=== PATIENT | female | born 1950 | race Caucasian/White ===

== ENCOUNTER → 2016-08-03 | Outpatient (CLI) | payer MEDICARE ==
--- NOTE | 2016-08-04 07:55 | US ---
EXAMINATION TYPE: US carotid duplex BILAT DATE OF EXAM: 08/03/2016 COMPARISON: NONE CLINICAL HISTORY: H35.61 Retinal Hemorrhage R Eye. EXAM MEASUREMENTS: RIGHT: Peak Systolic Velocity (PSV) cm/sec ----- Right CCA: 61.6 ----- Right ICA: 66.9 ----- Right ECA: 97.6 ICA/CCA ratio: 1.1 RIGHT: End Diastole cm/sec ----- Right CCA: 18.0 ----- Right ICA: 25.8 ----- Right ECA: 16.1 LEFT: Peak Systolic Velocity (PSV) cm/sec ----- Left CCA: 48.9 ----- Left ICA: 61.6 ----- Left ECA: 60.8 ICA/CCA ratio: 1.3 LEFT: End Diastole cm/sec ----- Left CCA: 16.1 ----- Left ICA: 22.3 ----- Left ECA: 10.1 VERTEBRALS (direction of flow): Right Vertebral: Antegrade Left Vertebral: Antegrade Mild changes bilaterally, no elevated velocities, no significant stenosis. Grayscale images show mild eccentric hyperechoic plaque at left carotid bulb. Velocity measurements a nd ratios in visualized portion of both internal carotid arteries remain within normal limits. Normal cephalad directed flow is seen in both vertebral arteries. IMPRESSION: No hemodynamically significant stenosis is seen in either internal carotid artery.
== END | disposition home or self-care (01) ==
LOC: RADUSWWP 16:13
PROVIDERS: ATTEND Family Medicine
DX: H35.61 Retinal hemorrhage, right eye (principal); E78.2 Mixed hyperlipidemia; I10 Essential (primary) hypertension
CPT/HCPCS: 93880

== ENCOUNTER → 2016-08-11 | Outpatient (CLI) | payer MEDICARE ==
--- NOTE | 2016-08-11 11:12 | MM ---
Reason for exam: additional evaluation requested from prior study. Last mammogram was performed 1 year and 1 month ago. History: Patient is postmenopausal. Benign excisional biopsy of the right breast, 1995. Took estrogen for 3 months. Physical Findings: Nurse did not find any significant physical abnormalities on exam. MG 3D Diag Mammo W/Cad GABBIE Bilateral CC and MLO view(s) were taken. Prior study comparison: July 14, 2015, bilateral MG screening mammo w CAD. July 12, 2014, bilateral MG screening mammo w CAD. The breast tissue is heterogeneously dense. This may lower the sensitivity of mammography. No significant new findings when compared with previous films. These results were verbally communicated with the patient and result sheet given to the patient on 08/11/16. ASSESSMENT: Benign, BI-RAD 2 RECOMMENDATION: Routine screening mammogram of both breasts in 1 year. Manage patient on a clinical basis.
== END | disposition home or self-care (01) ==
LOC: RADMAMWWP 10:01
PROVIDERS: ATTEND Family Medicine
DX: N64.4 Mastodynia (principal)
CPT/HCPCS: G0204; G0279

== ENCOUNTER 2016-08-27 08:56 | Day surgery (SDC) | payer MEDICARE ==
[2016-08-25 09:25] VITALS: BMI 32.8
[~2016-08-27 08:56] MED LIST: LACTATED RINGERS 1,000 ML IV SCH; LIDOCAINE 1% 20 ML VIAL (10MG/ML) FOR IV START INTRADERMA PRN
[2016-08-27 10:40] VITALS: TEMP 97.2
[2016-08-27] MEDS ORDERED: PROPOFOL 10 MG/ML 20 ML VIAL IV ONE (11:29)
[2016-08-27] MEDS ORDERED: LIDOCAINE 1% INJ 10MG/ML (20 ML MDV) ONE (11:29)
--- NOTE | 2016-08-27 11:47 | P.PCN ---
Date of Procedure: 08/27/16 Preoperative Diagnosis: Postoperative Diagnosis: Procedure(s) Performed: BRIEF HISTORY: Patient is a 66-year-old pleasant female, scheduled for an elective colonoscopy as a part of screening for colorectal neoplasia. PROCEDURE PERFORMED: Colonoscopy. PREOPERATIVE DIAGNOSIS: Screening for colon cancer. IV sedation per Anesthesia. PROCEDURE: After informed consent was obtained, the patient, was brought into the endoscopy unit. IV sedation was administered by Anesthesia under continuous monitoring. Digital rectal examination was normal. Initially the Olympus CF- 160 flexible video colonoscope was then inserted in the rectum, gradually advanced into the cecum without any difficulty. Careful examination was performed as the scope was gradually being withdrawn. Ileocecal valve and the appendiceal orifice were visualized and appeared normal. Prep was excellent. Mucosa of the cecum, ascending colon, transverse colon, descending colon, sigmoid colon, and rectum appeared normal. Retroflexion was performed in the rectum and no lesions were seen. The patient tolerated the procedure well. IMPRESSION: Normal-appearing colon from rectum to cecum with no evidence of colorectal neoplasia. RECOMMENDATIONS: Findings of this examination were discussed with the patient as well as her family. She was advised to have a repeat screening colonoscopy in 10 years. Implants: Indications for Procedure: Operative Findings: Description of Procedure:
[2016-08-27 12:18] VITALS: BP 145/82; PULSE 64; RESP 16
== END 2016-08-27 12:22 | disposition home or self-care (01) ==
LOC: ORWHC2ENDO 08:56
PROVIDERS: ATTEND Internal Medicine Gastroenterology
DX: Z12.11 Encounter for screening for malignant neoplasm of colon (principal); I10 Essential (primary) hypertension; E78.5 Hyperlipidemia, unspecified; I34.0 Nonrheumatic mitral (valve) insufficiency; E07.9 Disorder of thyroid, unspecified; G47.33 Obstructive sleep apnea (adult) (pediatric); M19.90 Unspecified osteoarthritis, unspecified site; K21.9 Gastro-esophageal reflux disease without esophagitis; Z79.899 Other long term (current) drug therapy; Z79.1 Long term (current) use of non-steroidal anti-inflammatories (NSAID); Z88.5 Allergy status to narcotic agent; Z88.0 Allergy status to penicillin; Z88.8 Allergy status to other drugs, medicaments and biological substances
CPT/HCPCS: J2001; J2704; G0121; 45378

== ENCOUNTER → 2016-11-08 | Outpatient (CLI) | payer MEDICARE ==
[2016-11-08 09:51] LABS: Non-African American GFR(MDRD) 51 (>60 ml/min/1.73 sqM)
== END | disposition home or self-care (01) ==
LOC: LABWHC1 08:39
PROVIDERS: ATTEND Psychiatry & Neurology Neurology
DX: D31.91 Benign neoplasm of unspecified part of right eye (principal)
CPT/HCPCS: 36415; 82565

== ENCOUNTER 2017-02-15 14:36 | Emergency (ER) | payer MEDICARE ==
[2017-02-15] MEDS ORDERED: ACETAMINOPHEN TAB 500 MG TAB PO STA (15:47)
--- NOTE | 2017-02-15 16:01 | ED ---
General Adult HPI - General Chief complaint: Fever Stated complaint: vomiting/cough/sore all over Time Seen by Provider: 02/15/17 15:25 Source: patient, RN notes reviewed Mode of arrival: wheelchair Limitations: no limitations - History of Present Illness Initial comments: 66-year-old female presents to the emergency department with a chief complaint of fever and cough cold runny nose. She states she's been sick since Tuesday night. She states she's had fevers she's had a cough with some sputum production she has had some nausea. She states she just feels very sore and very tired. She states that she was concerned because he just does not seem to be getting better and it has been About 3-4 days. She denies any other symptoms at this. She denies any diarrhea. She states she was concerned due to her continued symptoms so she thought that she should be seen. Patient denies any recent , shortness of breath, chest pain, back pain, abdominal pain, nausea vomiting, numbness or tingling, dysuria or hematuria, constipation or diarrhea, headaches or visual changes, or any other current symptoms. - Related Data Home Medications Medication Instructions Recorded Confirmed Allopurinol 300 mg PO DAILY 09/19/13 10/07/16 Levothyroxine Sodium [Synthroid] 50 mcg PO MOTUWETHFR 09/19/13 10/07/16 Simvastatin 40 mg PO HS 09/19/13 10/07/16 Hydrochlorothiazide [Hydrodiuril] 25 mg PO DAILY 08/20/14 10/07/16 Levothyroxine Sodium [Synthroid] 100 mcg PO SUSA 08/26/15 10/07/16 Aspirin [Children's Aspirin] 81 mg PO DAILY 02/15/17 02/15/17 Losartan Potassium 50 mg PO DAILY 02/15/17 02/15/17 Allergies Allergy/AdvReac Type Severity Reaction Status Date / Time amitriptyline HCl Allergy Rapid Verified 02/15/17 16:05 [From Elavil] Heart Rate codeine Allergy Vomiting Verified 02/15/17 16:05 codeine phosphate Allergy Vomiting Verified 02/15/17 16:05 [From Tylenol-Codeine #3] hydrocodone Allergy Rash/Hives Verified 02/15/17 16:05 hydrocodone bitartrate Allergy Rash/Hives Verified 02/15/17 16:05 [From Lortab] indomethacin [From Indocin] Allergy Vomiting Verified 02/15/17 16:05 indomethacin sodium Allergy Vomiting Verified 02/15/17 16:05 [From Indocin] nifedipine [From Procardia] Allergy Did not Verified 02/15/17 16:05 maintain blood pressure Penicillins Allergy Rash/Hives Verified 02/15/17 16:05 amlodipine besylate AdvReac lower leg Verified 02/15/17 16:05 [From Norvasc] edema, did not maintain blood pressure enalapril maleate AdvReac Cough Verified 02/15/17 15:02 [From Vasotec] enalaprilat dihydrate AdvReac Cough Verified 02/15/17 15:02 [From Vasotec] propoxyphene HCl AdvReac Vomiting Verified 02/15/17 16:05 [From Darvon] anesthetics AdvReac Nausea & Uncoded 02/15/17 16:05 Vomiting Review of Systems ROS Statement: Those systems with pertinent positive or pertinent negative responses have been documented in the HPI. ROS Other: All systems not noted in ROS Statement are negative. Past Medical History Past Medical History: Chest Pain / Angina, Diabetes Mellitus, GERD/Reflux, Hyperlipidemia, Hypertension, Musculoskeletal Disorder, Osteoarthritis (OA), Pneumonia, Sleep Apnea/CPAP/BIPAP, Syncope, Thyroid Disorder Additional Past Medical History / Comment(s): Heart Murmur. SL CATARACTS. GOUT. SYNCOPAL EPISODE W/ SEIZURE X1. NO TX FOR SLEEP APNEA. PAST SHINGLES. RT EAR SL LOSS W/TINNITUS R/T VIRUS. HERNIATED DISC BACK, SCIATICA. N/T RT LEG /FOOT; USES QUAD CANE PRN. HAD STRESS TEST, MEDICAL CLEARANCE 08/26/15. History of Any Multi-Drug Resistant Organisms: None Reported Past Surgical History: Adenoidectomy, Back Surgery, Bladder Surgery, Cholecystectomy, Heart Catheterization, Orthopedic Surgery, Tonsillectomy, Tubal Ligation Additional Past Surgical History / Comment(s): 09/02/15 lumbar laminectomy discectomy L4-L5. Other surgical hx: Bladder Suspension, GABBIE HIP RE- ALIGNMENTS. ORIF LT WRIST. RT CTR. RT ANKLE BENIGN TUMOR EXC. Lipoma EXC Rt wrist, EXC GANGLION CYSTS X3 RT WRIST. RT BREAST CYST EXC. Dental Implants x6. LT KNEE SCOPE. EPIDURAL INJ BACK X4, LAST 07/23/15, Past Anesthesia/Blood Transfusion Reactions: Family History of Problems w/ Anesthesia, Motion Sickness, Postoperative Nausea & Vomiting (PONV) Additional Past Anesthesia/Blood Transfusion Reaction / Comment(s): SEVERE PONV. MOTHER, SISTERS HAVE PONV. Past Psychological History: No Psychological Hx Reported Smoking Status: Never smoker Past Alcohol Use History: None Reported Past Drug Use History: None Reported - Past Family History Mother Family Medical History: Diabetes Mellitus Father Family Medical History: Diabetes Mellitus Additional Family Medical History / Comment(s): HEART PROBLEMS General Exam Limitations: no limitations General appearance: alert, in no apparent distress Eye exam: Present: normal appearance, PERRL, EOMI. Absent: scleral icterus, conjunctival injection, periorbital swelling ENT exam: Present: normal exam, mucous membranes moist Neck exam: Present: normal inspection. Absent: tenderness, meningismus, lymphadenopathy Respiratory exam: Present: normal lung sounds bilaterally. Absent: respiratory distress, wheezes, rales, rhonchi, stridor Cardiovascular Exam: Present: regular rate, normal rhythm, normal heart sounds. Absent: systolic murmur, diastolic murmur, rubs, gallop, clicks Neurological exam: Present: alert, oriented X3 Psychiatric exam: Present: normal affect, normal mood Skin exam: Present: warm, dry, intact, normal color. Absent: rash Course Vital Signs 02/15/17 15:00 Temperature 100.0 F H Pulse Rate 104 H Respiratory 20 Rate Blood Pressure 110/67 O2 Sat by Pulse 98 Oximetry Medical Decision Making - Medical Decision Making 66-year-old female presents emergency department with a chief complaint of of cough cold fever symptoms. This and patient is positive for influenza A. Chest x-rays been reviewed. This time she is out of the window for treatment. We discussed continuing Tylenol every 4 hours to help her with her symptoms. We discussed increasing fluids and symptom control. Patient stated that she understood and she is agreement this plan. All questions have been answered. He'll be discharged. - Lab Data Lab Results 02/15/17 Range/Units 15:35 Influenza Type A RNA Detected H (Not Detectd) Influenza Type B (PCR) Not Detected (Not Detectd) - Radiology Data Radiology results: report reviewed, image reviewed Disposition Clinical Impression: Influenza A Disposition: HOME SELF-CARE Condition: Stable Instructions: Fever in Adults (ED), Influenza (ED) Additional Instructions: Please use medication as discussed. Please follow up with family doctor if symptoms have not improved over the next two days. Please return to the emergency room if your symptoms increase or worsen or for any other concerns. Referrals: Shira Coe III, MD [Primary Care Provider] - 1-2 days Time of Disposition: 16:12
--- NOTE | 2017-02-15 16:07 | XR ---
EXAMINATION TYPE: XR chest 2V DATE OF EXAM: 02/15/2017 COMPARISON: Prior chest x-ray 08/22/2015 HISTORY: Cough TECHNIQUE: Frontal and lateral views of the chest are obtained. FINDINGS: There is no focal air space opacity, pleural effusion, or pneumothorax seen. The cardiac silhouette size is within normal limits. There is a slight spinal curvature. There is eventration of the right hemidiaphragm. Bronchial wall thickening is noted. The osseous structures are intact. IMPRESSION: Correlate for bronchitis, reactive airways disease.
[2017-02-15 16:14] VITALS: BP 124/77; PULSE 90; RESP 18; TEMP 100.1
== END 2017-02-15 16:32 | disposition home or self-care (01) ==
LOC: EC 14:36
DX: J09.X2 Influenza due to identified novel influenza A virus with other respiratory manifestations (principal); E78.5 Hyperlipidemia, unspecified; I10 Essential (primary) hypertension; M10.9 Gout, unspecified; E07.9 Disorder of thyroid, unspecified; M19.90 Unspecified osteoarthritis, unspecified site; Z79.82 Long term (current) use of aspirin; Z79.899 Other long term (current) drug therapy; Z88.0 Allergy status to penicillin; Z88.5 Allergy status to narcotic agent; Z88.6 Allergy status to analgesic agent; Z88.7 Allergy status to serum and vaccine; Z88.8 Allergy status to other drugs, medicaments and biological substances
CPT/HCPCS: 71020; 87502; 99283

== ENCOUNTER 2017-02-17 09:18 | Emergency (ER) | payer MEDICARE ==
[2017-02-17] MEDS ORDERED: KETOROLAC 30 MG/ML 1 ML VIAL IVP STA (10:29)
[2017-02-17] MEDS ORDERED: IPRATROPIUM-ALBUTEROL 3 ML NEB INHALATION STA (10:29)
[2017-02-17] MEDS ORDERED: SODIUM CHLORIDE 0.9% 1,000 ML IV ONE (10:29)
[2017-02-17 11:04] VITALS: RESP 16; TEMP 98.2
--- NOTE | 2017-02-17 11:18 | ED ---
General Adult HPI - General Chief complaint: Recheck/Abnormal Lab/Rx Stated complaint: Hx FLU, STILL SICK Time Seen by Provider: 02/17/17 10:08 Source: patient, family Mode of arrival: wheelchair Limitations: no limitations - History of Present Illness Initial comments: 66-year-old female presented for evaluation of continued URI symptoms. She states that she started having subjective fevers and chills cough myalgias or arthralgias on 02/12/2017 and was seen at this facility on when she was diagnosed with influenza A. She was outside of the treatment timeline for Tamiflu and advised follow-up with primary care physician. She states during this time she has had worsening cough that is productive of discolored sputum, nausea, bilateral ear discomfort, and the myalgias/arthralgias have continued to worsen. She called her primary care's edition's office today however there was no availability causing her to come to the ED. - Related Data Home Medications Medication Instructions Recorded Confirmed Allopurinol 300 mg PO DAILY 09/19/13 02/17/17 Levothyroxine Sodium [Synthroid] 50 mcg PO MOTUWETHFR 09/19/13 02/17/17 Simvastatin 40 mg PO HS 09/19/13 02/17/17 Hydrochlorothiazide [Hydrodiuril] 25 mg PO DAILY 08/20/14 02/17/17 Levothyroxine Sodium [Synthroid] 100 mcg PO SUSA 08/26/15 02/17/17 Aspirin [Children's Aspirin] 81 mg PO DAILY 02/15/17 02/17/17 Losartan Potassium 50 mg PO DAILY 02/15/17 02/17/17 Previous Rx's Medication Instructions Recorded Azithromycin [Zithromax Z-pack] 0 mg PO DIRECTED #6 tab 02/17/17 Benzonatate [Tessalon Perles] 100 mg PO TID PRN #20 capsule 02/17/17 Allergies Allergy/AdvReac Type Severity Reaction Status Date / Time amitriptyline HCl Allergy Rapid Verified 02/17/17 10:00 [From Elavil] Heart Rate codeine Allergy Vomiting Verified 02/17/17 10:00 codeine phosphate Allergy Vomiting Verified 02/17/17 10:00 [From Tylenol-Codeine #3] hydrocodone Allergy Rash/Hives Verified 02/17/17 10:00 hydrocodone bitartrate Allergy Rash/Hives Verified 02/17/17 10:00 [From Lortab] indomethacin [From Indocin] Allergy Vomiting Verified 02/17/17 10:00 indomethacin sodium Allergy Vomiting Verified 02/17/17 10:00 [From Indocin] nifedipine [From Procardia] Allergy Did not Verified 02/17/17 10:00 maintain blood pressure Penicillins Allergy Rash/Hives Verified 02/17/17 10:00 amlodipine besylate AdvReac lower leg Verified 02/17/17 10:00 [From Norvasc] edema, did not maintain blood pressure enalapril maleate AdvReac Cough Verified 02/17/17 10:00 [From Vasotec] enalaprilat dihydrate AdvReac Cough Verified 02/17/17 10:00 [From Vasotec] propoxyphene HCl AdvReac Vomiting Verified 02/17/17 10:00 [From Darvon] anesthetics AdvReac Nausea & Uncoded 02/17/17 09:35 Vomiting Review of Systems ROS Statement: Those systems with pertinent positive or pertinent negative responses have been documented in the HPI. ROS Other: All systems not noted in ROS Statement are negative. Constitutional: Reports: fever, chills Eyes: Denies: eye pain, eye discharge, vision change ENT: Reports: ear pain, congestion. Denies: throat pain, dental pain, epistaxis Respiratory: Reports: cough (Productive of green sputum). Denies: dyspnea, wheezes Cardiovascular: Denies: chest pain, palpitations, dyspnea on exertion, syncope Endocrine: Denies: fatigue, polydipsia, polyuria Gastrointestinal: Reports: nausea. Denies: abdominal pain, vomiting, diarrhea, constipation, hematemesis Genitourinary: Denies: urgency, dysuria Musculoskeletal: Reports: arthralgia, myalgia. Denies: back pain Skin: Denies: rash, lesions Neurological: Reports: headache. Denies: weakness Psychiatric: Denies: anxiety, depression Hematological/Lymphatic: Denies: easy bleeding, easy bruising Past Medical History Past Medical History: Chest Pain / Angina, Diabetes Mellitus, GERD/Reflux, Hyperlipidemia, Hypertension, Musculoskeletal Disorder, Osteoarthritis (OA), Pneumonia, Sleep Apnea/CPAP/BIPAP, Syncope, Thyroid Disorder Additional Past Medical History / Comment(s): Heart Murmur. SL CATARACTS. GOUT. SYNCOPAL EPISODE W/ SEIZURE X1. NO TX FOR SLEEP APNEA. PAST SHINGLES. RT EAR SL LOSS W/TINNITUS R/T VIRUS. HERNIATED DISC BACK, SCIATICA. N/T RT LEG /FOOT; USES QUAD CANE PRN. HAD STRESS TEST, MEDICAL CLEARANCE 08/26/15. History of Any Multi-Drug Resistant Organisms: None Reported Past Surgical History: Adenoidectomy, Back Surgery, Bladder Surgery, Cholecystectomy, Heart Catheterization, Orthopedic Surgery, Tonsillectomy, Tubal Ligation Additional Past Surgical History / Comment(s): 09/02/15 lumbar laminectomy discectomy L4-L5. Other surgical hx: Bladder Suspension, GABBIE HIP RE- ALIGNMENTS. ORIF LT WRIST. RT CTR. RT ANKLE BENIGN TUMOR EXC. Lipoma EXC Rt wrist, EXC GANGLION CYSTS X3 RT WRIST. RT BREAST CYST EXC. Dental Implants x6. LT KNEE SCOPE. EPIDURAL INJ BACK X4, LAST 07/23/15, Past Anesthesia/Blood Transfusion Reactions: Family History of Problems w/ Anesthesia, Motion Sickness, Postoperative Nausea & Vomiting (PONV) Additional Past Anesthesia/Blood Transfusion Reaction / Comment(s): SEVERE PONV. MOTHER, SISTERS HAVE PONV. Past Psychological History: No Psychological Hx Reported Smoking Status: Never smoker Past Alcohol Use History: None Reported Past Drug Use History: None Reported - Past Family History Mother Family Medical History: Diabetes Mellitus Father Family Medical History: Diabetes Mellitus Additional Family Medical History / Comment(s): HEART PROBLEMS General Exam Limitations: no limitations General appearance: alert, in distress (Moderate) Head exam: Present: atraumatic, normocephalic, normal inspection Eye exam: Present: normal appearance, PERRL, EOMI. Absent: scleral icterus, conjunctival injection, periorbital swelling ENT exam: Present: normal exam, mucous membranes moist Neck exam: Present: normal inspection. Absent: tenderness, meningismus, lymphadenopathy Respiratory exam: Present: normal lung sounds bilaterally. Absent: respiratory distress, wheezes, rales, rhonchi, stridor Cardiovascular Exam: Present: regular rate, normal rhythm, normal heart sounds. Absent: systolic murmur, diastolic murmur, rubs, gallop, clicks GI/Abdominal exam: Present: soft, normal bowel sounds. Absent: distended, tenderness, guarding, rebound, rigid Rectal exam: Present: deferred Extremities exam: Present: normal inspection, full ROM, normal capillary refill. Absent: tenderness, pedal edema, joint swelling, calf tenderness Back exam: Present: normal inspection, full ROM Neurological exam: Present: alert, oriented X3, CN II-XII intact Psychiatric exam: Present: normal affect, normal mood Skin exam: Present: warm, dry, intact, normal color. Absent: rash Course Vital Signs 02/17/17 02/17/17 02/17/17 09:31 10:58 11:02 Temperature 98.5 F 98.2 F Pulse Rate 91 80 82 Respiratory 18 16 Rate Blood Pressure 94/58 110/67 O2 Sat by Pulse 95 97 Oximetry 02/17/17 02/17/17 11:10 12:54 Temperature 98.2 F Pulse Rate 82 72 Respiratory 16 Rate Blood Pressure 112/68 O2 Sat by Pulse 98 Oximetry Medical Decision Making - Medical Decision Making 66-year-old female presenting for evaluation of continued symptoms after being diagnosed with influenza A 2 days ago. On physical exam she appears to be in mild to moderate distress laying on the bed. She does have a spit bucket with her that does have discolored sputum. Remainder of her physical exam is benign. Concern for post-influenza pneumonia and will obtain chest x-ray and labs. She denies any abdominal pain however continues to have nausea despite coughing or not and will obtain abdominal labs. Also provide Afrin, IV fluids, Toradol, and a breathing treatment. Labs revealed a mild transaminitis and chest x-ray revealed no acute process. Patient was reevaluated and had improvement in all symptoms. She was informed of all results and through shared decision making it was determined that should be discharged with instructions to follow-up with her primary care physician but return to this facility if her symptoms should worsen or persist. The patient acknowledged an understanding of all information provided and agreed with this plan of care. - Lab Data Result diagrams: 02/17/17 10:52 02/17/17 10:52 Lab Results 02/17/17 02/17/17 Range/Units 10:52 10:52 WBC 7.4 (3.8-10.6) k/uL RBC 4.67 (3.80-5.40) m/uL Hgb 13.6 (11.4-16.0) gm/dL Hct 39.7 (34.0-46.0) % MCV 85.0 (80.0-100.0) fL MCH 29.1 (25.0-35.0) pg MCHC 34.2 (31.0-37.0) g/dL RDW 13.5 (11.5-15.5) % Plt Count 273 (150-450) k/uL Neutrophils % 70 % Lymphocytes % 16 % Monocytes % 11 % Eosinophils % 0 % Basophils % 1 % Neutrophils # 5.2 (1.3-7.7) k/uL Lymphocytes # 1.2 (1.0-4.8) k/uL Monocytes # 0.8 (0-1.0) k/uL Eosinophils # 0.0 (0-0.7) k/uL Basophils # 0.0 (0-0.2) k/uL Sodium 133 L (137-145) mmol/L Potassium 2.9 L* (3.5-5.1) mmol/L Chloride 90 L (98-107) mmol/L Carbon Dioxide 31 H (22-30) mmol/L Anion Gap 12 mmol/L BUN 16 (7-17) mg/dL Creatinine 0.99 (0.52-1.04) mg/dL Est GFR (MDRD) Af Amer >60 (>60 ml/min/1.73 sqM) Est GFR (MDRD) Non-Af 56 (>60 ml/min/1.73 sqM) Glucose 107 H (74-99) mg/dL Calcium 8.5 (8.4-10.2) mg/dL Total Bilirubin 0.7 (0.2-1.3) mg/dL AST 62 H (14-36) U/L ALT 84 H (9-52) U/L Alkaline Phosphatase 177 H (38-126) U/L Total Protein 6.3 (6.3-8.2) g/dL Albumin 3.5 (3.5-5.0) g/dL Lipase 28 (23-300) U/L Disposition Clinical Impression: Productive cough, URI (upper respiratory infection), Hypokalemia Disposition: HOME SELF-CARE Condition: Stable Instructions: Influenza (ED), Upper Respiratory Infection (ED), Acute Bronchitis (ED) Additional Instructions: Please use medication as discussed. Please follow up with family doctor if symptoms have not improved over the next two days. Please return to the emergency room if your symptoms increase or worsen or for any other concerns. Prescriptions: Azithromycin [Zithromax Z-pack] 0 mg PO DIRECTED #6 tab Benzonatate [Tessalon Perles] 100 mg PO TID PRN #20 capsule PRN Reason: cough Referrals: Shira Coe III, MD [Primary Care Provider] - 1-2 days Time of Disposition: 12:33
--- NOTE | 2017-02-17 11:37 | XR ---
EXAMINATION TYPE: XR chest 2V DATE OF EXAM: 02/17/2017 COMPARISON: Prior chest x-ray 02/15/2017 HISTORY: Cough TECHNIQUE: Frontal and lateral views of the chest are obtained. FINDINGS: There is no focal air space opacity, pleural effusion, or pneumothorax seen. The cardiac silhouette size is within normal limits. Bronchial wall thickening present. The osseous structures ar e intact. IMPRESSION: Correlate for bronchitis, reactive airways disease.
[2017-02-17 11:50] LABS: Anion Gap 12 mmol/L; Calcium 8.5 mg/dL (8.4-10.2); Carbon Dioxide 31 mmol/L (22-30); Chloride 90 mmol/L (98-107); Glucose 107 mg/dL (74-99); Non-African American GFR(MDRD) 56 (>60 ml/min/1.73 sqM); Sodium 133 mmol/L (137-145); Total Bilirubin 0.7 mg/dL (0.2-1.3); Total Protein 6.3 g/dL (6.3-8.2)
[2017-02-17 11:59] LABS: Potassium 2.9 mmol/L (3.5-5.1)
[2017-02-17 12:00] LABS: AST 62 U/L (14-36); Alkaline Phosphatase 177 U/L (38-126); Blood Urea Nitrogen 16 mg/dL (7-17)
[2017-02-17 12:01] LABS: ALT 84 U/L (9-52)
[2017-02-17 12:14] LABS: Basophils % (A) 1 %; CH 29.9; CHCM 35.3; Eosinophils % (A) 0 %; HCT 39.7 % (34.0-46.0); HDW 2.94; HGB 13.6 gm/dL (11.4-16.0); Luc # (Auto) 0.17; Luc % (Auto) 2; Lymphocytes # (A) 1.2 k/uL (1.0-4.8); Lymphocytes % (A) 16 %; MCH 29.1 pg (25.0-35.0); MCHC 34.2 g/dL (31.0-37.0); Mean Platelet Volume 7.1; Monocytes # (A) 0.8 k/uL (0-1.0); Monocytes % (A) 11 %; Neutrophils # (A) 5.2 k/uL (1.3-7.7); Neutrophils % (A) 70 %; RBC 4.67 m/uL (3.80-5.40); RDW 13.5 % (11.5-15.5); WBC 7.4 k/uL (3.8-10.6)
[2017-02-17] MEDS ORDERED: POTASSIUM CHLORIDE ER 20 MEQ TAB.ER PO STA (12:22)
[2017-02-17 12:56] VITALS: BP 112/68; PULSE 72
== END 2017-02-17 12:45 | disposition home or self-care (01) ==
LOC: EC 09:18
DX: J06.9 Acute upper respiratory infection, unspecified (principal); E87.6 Hypokalemia; E78.5 Hyperlipidemia, unspecified; I10 Essential (primary) hypertension; E07.9 Disorder of thyroid, unspecified; G47.30 Sleep apnea, unspecified; Z99.89 Dependence on other enabling machines and devices; M19.90 Unspecified osteoarthritis, unspecified site; Z79.82 Long term (current) use of aspirin; Z79.899 Other long term (current) drug therapy; Z88.8 Allergy status to other drugs, medicaments and biological substances; Z88.5 Allergy status to narcotic agent; Z88.6 Allergy status to analgesic agent; Z88.0 Allergy status to penicillin; Z88.4 Allergy status to anesthetic agent
CPT/HCPCS: 36415; 94640; 80053; 83690; 85025; 71020; 99284; 96374; 96361; J1885

== ENCOUNTER → 2017-08-17 | Outpatient (CLI) | payer MEDICARE ==
--- NOTE | 2017-08-18 10:47 | MM ---
Reason for exam: screening (asymptomatic). Last mammogram was performed 1 year ago. History: Patient is postmenopausal. Benign excisional biopsy of the right breast, 1995. Took estrogen for 3 months. Physical Findings: A clinical breast exam by your physician is recommended on an annual basis and results should be correlated with mammographic findings. MG 3D Screening Mammo W/Cad Bilateral CC and MLO view(s) were taken. Prior study comparison: August 11, 2016, bilateral MG 3d diag mammo w/cad GABBIE. July 14, 2015, bilateral MG screening mammo w CAD. The breast tissue is heterogeneously dense. This may lower the sensitivity of mammography. There is no discrete abnormality. No significant changes when compared with prior studies. ASSESSMENT: Negative, BI-RAD 1 RECOMMENDATION: Routine screening mammogram of both breasts in 1 year.
== END | disposition home or self-care (01) ==
LOC: RADMAMWWP 11:43
PROVIDERS: ATTEND Family Medicine
DX: Z12.31 Encounter for screening mammogram for malignant neoplasm of breast (principal)
CPT/HCPCS: 77063; 77067

== ENCOUNTER 2018-06-02 14:13 | Emergency (ER) | payer MEDICARE ==
[2018-06-02 14:17] VITALS: TEMP 97.8
[2018-06-02] MEDS ORDERED: SODIUM CHLORIDE 0.9% 1,000 ML IV STA ×2 (14:29→15:25)
--- NOTE | 2018-06-02 14:32 | ED ---
Arrhythmia/Palpitations HPI - General Chief Complaint: Arrhythmia/Palpitations Stated Complaint: High Heart Rate, Dizzy Time Seen by Provider: 06/02/18 14:21 Source: patient, RN notes reviewed Mode of arrival: ambulatory Limitations: no limitations - History of Present Illness Initial Comments: This is a 68-year-old female who presents with complaints of generalized leg weakness and sudden dizzy spell. She states she was feeling her usual self when she suddenly got profound weakness in both legs headache dizziness and heart rate initially of 120 later was up to 137 fill it was racing shows a rate about 5 minute episode of a left temporal headache sharp in nature that did resolve she states that normally her heart rate is between 55 and 65 and when she wakes up in the morning between 49 and 52. Currently she has no head neck or back pain. No chest pain no abdominal pain no focal weakness. MD Complaint: "heart racing" - Related Data Home Medications Medication Instructions Recorded Confirmed Allopurinol 300 mg PO DAILY 09/19/13 06/02/18 Levothyroxine Sodium [Synthroid] 50 mcg PO DAILY 09/19/13 06/02/18 Hydrochlorothiazide [Hydrodiuril] 25 mg PO DAILY 08/20/14 06/02/18 Aspirin [Children's Aspirin] 81 mg PO DAILY 02/15/17 06/02/18 Losartan Potassium 50 mg PO DAILY 02/15/17 06/02/18 Atorvastatin Calcium [Lipitor] 10 mg PO HS 06/02/18 06/02/18 Previous Rx's Medication Instructions Recorded Magnesium 200 mg PO DAILY #14 tablet 06/02/18 Potassium Chloride ER [K-Dur 20] 20 meq PO DAILY #14 tab 06/02/18 Allergies Allergy/AdvReac Type Severity Reaction Status Date / Time amitriptyline HCl Allergy Rapid Verified 06/02/18 14:34 [From Elavil] Heart Rate codeine Allergy Vomiting Verified 06/02/18 14:34 codeine phosphate Allergy Vomiting Verified 06/02/18 14:34 [From Tylenol-Codeine #3] hydrocodone Allergy Rash/Hives Verified 06/02/18 14:34 hydrocodone bitartrate Allergy Rash/Hives Verified 06/02/18 14:34 [From Lortab] indomethacin [From Indocin] Allergy Vomiting Verified 06/02/18 14:34 indomethacin sodium Allergy Vomiting Verified 06/02/18 14:34 [From Indocin] nifedipine [From Procardia] Allergy Did not Verified 06/02/18 14:34 maintain blood pressure Penicillins Allergy Rash/Hives Verified 06/02/18 14:34 amlodipine besylate AdvReac lower leg Verified 06/02/18 14:34 [From Norvasc] edema, did not maintain blood pressure enalapril maleate AdvReac Cough Verified 06/02/18 14:34 [From Vasotec] enalaprilat dihydrate AdvReac Cough Verified 06/02/18 14:34 [From Vasotec] propoxyphene HCl AdvReac Vomiting Verified 06/02/18 14:34 [From Darvon] anesthetics AdvReac Nausea & Uncoded 06/02/18 14:17 Vomiting Review of Systems ROS Statement: Those systems with pertinent positive or pertinent negative responses have been documented in the HPI. ROS Other: All systems not noted in ROS Statement are negative. Past Medical History Past Medical History: Chest Pain / Angina, Diabetes Mellitus, GERD/Reflux, Hyperlipidemia, Hypertension, Musculoskeletal Disorder, Osteoarthritis (OA), Pneumonia, Sleep Apnea/CPAP/BIPAP, Syncope, Thyroid Disorder Additional Past Medical History / Comment(s): Heart Murmur. SL CATARACTS. GOUT. SYNCOPAL EPISODE W/ SEIZURE X1. NO TX FOR SLEEP APNEA. PAST SHINGLES. RT EAR SL LOSS W/TINNITUS R/T VIRUS. HERNIATED DISC BACK, SCIATICA. N/T RT LEG/FOOT; USES QUAD CANE PRN. HAD STRESS TEST, MEDICAL CLEARANCE 08/26/15. History of Any Multi-Drug Resistant Organisms: None Reported Past Surgical History: Adenoidectomy, Back Surgery, Bladder Surgery, Cholecystectomy, Heart Catheterization, Orthopedic Surgery, Tonsillectomy, Tubal Ligation Additional Past Surgical History / Comment(s): 09/02/15 lumbar laminectomy discec arnie L4-L5. Other surgical hx: Bladder Suspension, GABBIE HIP RE-ALIGNMENTS. ORIF LT WRIST. RT CTR. RT ANKLE BENIGN TUMOR EXC. Lipoma EXC Rt wrist, EXC GANGLION CYSTS X3 RT WRIST. RT BREAST CYST EXC. Dental Implants x6. LT KNEE SCOPE. EPIDURAL INJ BACK X4, LAST 07/23/15, Past Anesthesia/Blood Transfusion Reactions: Family History of Problems w/ Anesthesia, Motion Sickness, Postoperative Nausea & Vomiting (PONV) Additional Past Anesthesia/Blood Transfusion Reaction / Comment(s): SEVERE PONV. MOTHER, SISTERS HAVE PONV. Past Psychological History: No Psychological Hx Reported Smoking Status: Never smoker Past Alcohol Use History: None Reported Past Drug Use History: None Reported - Past Family History Mother Family Medical History: Diabetes Mellitus Father Family Medical History: Diabetes Mellitus Additional Family Medical History / Comment(s): HEART PROBLEMS General Exam - General Exam Comments Initial Comments: This is a well-developed well-nourished awake alert oriented 3 female Limitations: no limitations General appearance: alert, in no apparent distress Head exam: Present: atraumatic, normocephalic, normal inspection Eye exam: Present: normal appearance, PERRL, EOMI. Absent: scleral icterus, conjunctival injection, periorbital swelling ENT exam: Present: normal exam, mucous membranes moist Neck exam: Present: normal inspection, full ROM, other (No stridor JVD or bruits). Absent: tenderness, meningismus, lymphadenopathy Respiratory exam: Present: normal lung sounds bilaterally. Absent: respiratory distress, wheezes, rales, rhonchi, stridor Cardiovascular Exam: Present: normal rhythm, tachycardia, normal heart sounds. Absent: systolic murmur, diastolic murmur, rubs, gallop, clicks GI/Abdominal exam: Present: soft, normal bowel sounds. Absent: distended, tenderness, guarding, rebound, rigid, bruit, pulsatile mass, hernia Extremities exam: Present: normal inspection, full ROM, normal capillary refill. Absent: tenderness, pedal edema, joint swelling, calf tenderness Back exam: Present: normal inspection Neurological exam: Present: alert, oriented X3, CN II-XII intact Psychiatric exam: Present: normal affect, normal mood Skin exam: Present: warm, dry, intact, normal color. Absent: rash Course Vital Signs 06/02/18 06/02/18 06/02/18 14:14 15:19 15:51 Temperature 97.8 F Pulse Rate 101 H 85 Pulse Rate [ 102 H Sitting Slurry Tank Tender] Pulse Rate [ 140 H Standing Slurry Tank Tender ] Pulse Rate [ 98 Supine Slurry Tank Tender] Respiratory 20 18 Rate Blood Pressure 123/75 127/80 Blood Pressure 137/94 [Right Arm Sitting] Blood Pressure 156/99 [Right Arm Standing] Blood Pressure 132/88 [Right Arm Supine] O2 Sat by Pulse 97 95 Oximetry - Reevaluation(s) Reevaluation #1: 06/02/18 16:19 Patient was feeling improved after IV fluids. I did a long discussion with her family regarding findings she does demonstrate hypomagnesemia as well as hypokalemia. In addition to find depletion. EKG Findings - EKG Results: EKG: interpreted by CHUCHO, sinus rhythm (Sinus tachycardia rate of 106 AZ interval 160 QRS duration 80 QT since QTC 328/435 nonspecific T-wave configuration) Medical Decision Making - Medical Decision Making The patient will be discharged after IV fluids and supplementation of magnesium and potassium. Patient will be placed on supplements she is increase oral fluids he is follow-up with her doctor return when necessary the presentation consistent with orthostatic hypotension/dehydration. - Lab Data Result diagrams: 06/02/18 14:40 06/02/18 14:40 Lab Results 06/02/18 06/02/18 06/02/18 Range/Units 14:40 14:40 14:40 WBC 13.2 H (3.8-10.6) k/uL RBC 4.62 (3.80-5.40) m/uL Hgb 14.1 (11.4-16.0) gm/dL Hct 42.4 (34.0-46.0) % MCV 91.6 (80.0-100.0) fL MCH 30.5 (25.0-35.0) pg MCHC 33.3 (31.0-37.0) g/dL RDW 14.4 (11.5-15.5) % Plt Count 336 (150-450) k/uL Neutrophils % 70 % Lymphocytes % 21 % Monocytes % 5 % Eosinophils % 3 % Basophils % 1 % Neutrophils # 9.2 H (1.3-7.7) k/uL Lymphocytes # 2.7 (1.0-4.8) k/uL Monocytes # 0.6 (0-1.0) k/uL Eosinophils # 0.4 (0-0.7) k/uL Basophils # 0.1 (0-0.2) k/uL PT 9.9 (9.0-12.0) sec INR 0.9 (<1.2) APTT 21.9 L (22.0-30.0) sec Sodium 138 (137-145) mmol/L Potassium 3.2 L (3.5-5.1) mmol/L Chloride 104 (98-107) mmol/L Carbon Dioxide 24 (22-30) mmol/L Anion Gap 10 mmol/L BUN 31 H (7-17) mg/dL Creatinine 1.06 H (0.52-1.04) mg/dL Est GFR (CKD-EPI)AfAm 62 (>60 ml/min/1.73 sqM) Est GFR (CKD-EPI)NonAf 54 (>60 ml/min/1.73 sqM) Glucose 148 H (74-99) mg/dL Calcium 10.2 (8.4-10.2) mg/dL Magnesium 1.1 L (1.6-2.3) mg/dL Total Bilirubin 0.7 (0.2-1.3) mg/dL AST 27 (14-36) U/L ALT 32 (9-52) U/L Alkaline Phosphatase 63 (38-126) U/L Creatine Kinase 27 L (30-135) U/L Troponin I (0.000-0.034) ng/mL Total Protein 6.4 (6.3-8.2) g/dL Albumin 4.1 (3.5-5.0) g/dL TSH 4.090 (0.465-4.680) mIU/L 06/02/18 Range/Units 14:40 WBC (3.8-10.6) k/uL RBC (3.80-5.40) m/uL Hgb (11.4-16.0) gm/dL Hct (34.0-46.0) % MCV (80.0-100.0) fL MCH (25.0-35.0) pg MCHC (31.0-37.0) g/dL RDW (11.5-15.5) % Plt Count (150-450) k/uL Neutrophils % % Lymphocytes % % Monocytes % % Eosinophils % % Basophils % % Neutrophils # (1.3-7.7) k/uL Lymphocytes # (1.0-4.8) k/uL Monocytes # (0-1.0) k/uL Eosinophils # (0-0.7) k/uL Basophils # (0-0.2) k/uL PT (9.0-12.0) sec INR (<1.2) APTT (22.0-30.0) sec Sodium (137-145) mmol/L Potassium (3.5-5.1) mmol/L Chloride (98-107) mmol/L Carbon Dioxide (22-30) mmol/L Anion Gap mmol/L BUN (7-17) mg/dL Creatinine (0.52-1.04) mg/dL Est GFR (CKD-EPI)AfAm (>60 ml/min/1.73 sqM) Est GFR (CKD-EPI)NonAf (>60 ml/min/1.73 sqM) Glucose (74-99) mg/dL Calcium (8.4-10.2) mg/dL Magnesium (1.6-2.3) mg/dL Total Bilirubin (0.2-1.3) mg/dL AST (14-36) U/L ALT (9-52) U/L Alkaline Phosphatase (38-126) U/L Creatine Kinase (30-135) U/L Troponin I <0.012 (0.000-0.034) ng/mL Total Protein (6.3-8.2) g/dL Albumin (3.5-5.0) g/dL TSH (0.465-4.680) mIU/L - Radiology Data Radiology results: report reviewed, image reviewed Disposition Clinical Impression: Orthostatic lightheadedness, Dehydration, Hypokalemia, Hypomagnesemia syndrome, Renal insufficiency Disposition: HOME SELF-CARE Condition: Good Instructions (If sedation given, give patient instructions): Dehydration (ED), Hypokalemia (ED), Hypomagnesemia (ED) Prescriptions: Potassium Chloride ER [K-Dur 20] 20 meq PO DAILY #14 tab Magnesium 200 mg PO DAILY #14 tablet Is patient prescribed a controlled substance at d/c from ED?: No Referrals: Hanna Ortez MD [Primary Care Provider] - 1-2 days
[2018-06-02 14:54] LABS: Basophils # (A) 0.1 k/uL (0-0.2); Basophils % (A) 1 %; Eosinophils # (A) 0.4 k/uL (0-0.7); Eosinophils % (A) 3 %; HCT 42.4 % (34.0-46.0); HGB 14.1 gm/dL (11.4-16.0); Lymphocytes # (A) 2.7 k/uL (1.0-4.8); Lymphocytes % (A) 21 %; MCH 30.5 pg (25.0-35.0); MCHC 33.3 g/dL (31.0-37.0); MCV 91.6 fL (80.0-100.0); Monocytes # (A) 0.6 k/uL (0-1.0); Monocytes % (A) 5 %; Neutrophils # (A) 9.2 k/uL (1.3-7.7); Neutrophils % (A) 70 %; Platelet Count 336 k/uL (150-450); RBC 4.62 m/uL (3.80-5.40); RDW 14.4 % (11.5-15.5); WBC 13.2 k/uL (3.8-10.6)
[2018-06-02 15:03] LABS: Albumin 4.1 g/dL (3.5-5.0); Calcium 10.2 mg/dL (8.4-10.2); Magnesium 1.1 mg/dL (1.6-2.3); Potassium 3.2 mmol/L (3.5-5.1); Total Bilirubin 0.7 mg/dL (0.2-1.3); Total Protein 6.4 g/dL (6.3-8.2)
[2018-06-02 15:04] LABS: INR 0.9 (<1.2)
[2018-06-02 15:05] LABS: Partial Thromboplastin Time 21.9 sec (22.0-30.0); Prothrombin Time 9.9 sec (9.0-12.0)
--- NOTE | 2018-06-02 15:14 | XR ---
EXAMINATION TYPE: XR chest 2V DATE OF EXAM: 06/02/2018 COMPARISON: 02/17/2017 HISTORY: Shortness of breath TECHNIQUE: Frontal and lateral views of the chest are obtained. FINDINGS: Scattered senescent parenchymal changes noted. Hyperinflation compatible with COPD. No evidence for infiltrate. No evidence for atelectasis. Heart size is stable. Mediastinal structures are stable and grossly unremarkable. No evidence for hilar prominence. Degenerative changes dorsal spine. IMPRESSION: 1. No evidence for acute pulmonary disease.
--- NOTE | 2018-06-02 15:16 | CT ---
EXAMINATION TYPE: CT brain wo con DATE OF EXAM: 06/02/2018 COMPARISON: 08/20/2014 HISTORY: dizziness CT DLP: 1082.[address] of the brain was performed. The ventricles, basal cisterns and sulci overlying the cerebral convexities demonstrate mild enlargem ent. There is no evidence for intracranial hemorrhage or sulcal effacement. There is decreased attenuation about the periventricular white matter and deep white matter of both c erebral hemispheres, compatible with chronic small vessel ischemia. Differential diagnosis does inclu de demyelination. No mass effects are seen.No midline shift. Osseous calvarium is intact. If symptoms persist consider MRI. IMPRESSION: 1. Age related atrophic and chronic small vessel ischemic change without acute intracranial process s een at this time.
[2018-06-02] MEDS ORDERED: MAGNESIUM SULFATE-D5W PMX 1 GM in DEXTROSE/WATER 1 100ML.BAG IVPB ONE (15:25)
[2018-06-02] MEDS ORDERED: POTASSIUM CHLORIDE ER 20 MEQ TAB.ER PO STA (15:25)
[2018-06-02 17:07] VITALS: BP 137/81; PULSE 76; RESP 16
== END 2018-06-02 17:10 | disposition home or self-care (01) ==
LOC: EC 14:13
DX: E83.42 Hypomagnesemia (principal); E87.6 Hypokalemia; E86.0 Dehydration; N28.9 Disorder of kidney and ureter, unspecified; R00.0 Tachycardia, unspecified; E78.5 Hyperlipidemia, unspecified; I10 Essential (primary) hypertension; M10.9 Gout, unspecified; M19.90 Unspecified osteoarthritis, unspecified site; E07.9 Disorder of thyroid, unspecified; Z88.0 Allergy status to penicillin; Z88.4 Allergy status to anesthetic agent; Z88.5 Allergy status to narcotic agent; Z88.6 Allergy status to analgesic agent; Z88.8 Allergy status to other drugs, medicaments and biological substances; Z79.82 Long term (current) use of aspirin; Z79.890 Hormone replacement therapy; Z79.899 Other long term (current) drug therapy; Z95.818 Presence of other cardiac implants and grafts; Z98.890 Other specified postprocedural states; Z82.49 Family history of ischemic heart disease and other diseases of the circulatory system
CPT/HCPCS: 36415; 93005; 80053; 82550; 83735; 84443; 84484; 85025; 85610; 85730; 71046; 70450; 99285; 96365; 96361; J3475

== ENCOUNTER → 2018-08-21 | Outpatient (CLI) | payer MEDICARE ==
--- NOTE | 2018-08-21 08:38 | BD ---
EXAMINATION TYPE: Axial Bone Density DATE OF EXAM: 08/21/2018 COMPARISON: none CLINICAL HISTORY: Asymptomatic postmenopausal female. Osteoporosis screening. Height: 64 inches Weight: 181.2 pounds FRAX RISK QUESTIONS: Alcohol (3 or more units per day): no Family History (Parent hip fracture): no Glucocorticoids (More than 3mos): no (Ex: prednisone, prednisolone, methylprednisolone, dexamethasone, and hydrocortisone). History of Fracture in Adulthood: yes Secondary Osteoporosis: 1. Type 1 Diabetes: no 2. Hyperthyroidism: no 3. Menopause before 45: no 4. Malnutrition: no 5. Chronic liver disease: no Rheumatoid Arthritis: no Current Tobacco Use: no RISK FACTORS HISTORY OF: History of Wrist Fracture: yes, left...twice When: 2008 & 2014 Surgery to wrist: yes, left Surgery to Hip: yes, both When: 1988, 1989, 1991, 1993 Surgery to spine: yes, laminectomy When: 2015 Family History of Osteoporosis: no Active: yes Diet low in dairy products/other sources of calcium: no Postmenopausal woman: ys Take estrogen and/or progesterone medications: not now How long: about 3 months Lost more than 2 inches in height since high school: no Frequent falls: no Poor Health: no Hyperparathyroidism: no Adrenal Insufficiency: no MEDICATIONS: Prednisone or other steroids: no Thyroid Medications: yes Which medication: Synthroid How Long: since 2013 Osteoporosis Medications: no Additional Medications: blood pressure med, cholesterol med Additional History: Bilateral hip surgery for congenital condition; diet controlled diabetic; laminec arnie EXAM MEASUREMENTS: Bone mineral densitometry was performed using the [employer] Bone mineral density about the R Wrist (g/cm2): 0.667 T Score values are as follows: -----Dist. R+U: -0.1 -----Prox. R+U: 0.2 -----Radius total: -0.1 Bone mineral density not previously done on forearm IMPRESSION: Normal (Values between +1 and -1 indicate normal bone mass). Consider repeating this study in 5 year s or sooner if there is some new clinical indication. NOTE: T-SCORE=SD OF THE YOUNG ADULT MEAN.
--- NOTE | 2018-08-21 09:42 | MM ---
Reason for exam: screening (asymptomatic). Last mammogram was performed 1 year ago. History: Patient is postmenopausal. Benign excisional biopsy of the right breast, 1995. Took hormonal contraceptives for 4 months. Took estrogen for 3 months. Physical Findings: A clinical breast exam by your physician is recommended on an annual basis and results should be correlated with mammographic findings. MG 3D Screening Mammo W/Cad Bilateral CC and MLO view(s) were taken. Prior study comparison: August 17, 2017, bilateral MG 3d screening mammo w/cad. August 11, 2016, bilateral MG 3d diag mammo w/cad GABBIE. The breast tissue is heterogeneously dense. This may lower the sensitivity of mammography. No suspicious abnormality. Post surgical change on the right. No significant changes when compared with prior studies. ASSESSMENT: Benign, BI-RAD 2 RECOMMENDATION: Routine screening mammogram of both breasts in 1 year.
== END | disposition home or self-care (01) ==
LOC: RADMAMWWP 06:41
PROVIDERS: ATTEND Family Medicine
DX: Z12.31 Encounter for screening mammogram for malignant neoplasm of breast (principal); Z78.0 Asymptomatic menopausal state; Z00.00 Encounter for general adult medical examination without abnormal findings
CPT/HCPCS: 77063; 77067; 77080

== ENCOUNTER → 2019-09-06 | Outpatient (CLI) | payer MEDICARE ==
--- NOTE | 2019-09-07 10:16 | MM ---
Reason for exam: screening (asymptomatic). Last mammogram was performed 1 year ago. History: Patient is postmenopausal. Benign excisional biopsy of the right breast, 1995. Took hormonal contraceptives for 4 months. Took estrogen for 3 months. Physical Findings: A clinical breast exam by your physician is recommended on an annual basis and results should be correlated with mammographic findings. MG 3D Screening Mammo W/Cad Bilateral CC and MLO view(s) were taken. Prior study comparison: August 21, 2018, bilateral MG 3d screening mammo w/cad. August 17, 2017, bilateral MG 3d screening mammo w/cad. The breast tissue is heterogeneously dense. This may lower the sensitivity of mammography. There is no discrete abnormality. No significant changes when compared with prior studies. ASSESSMENT: Negative, BI-RAD 1 RECOMMENDATION: Routine screening mammogram of both breasts in 1 year.
== END | disposition home or self-care (01) ==
LOC: RADMAMWWP 07:20
PROVIDERS: ATTEND Family Medicine
DX: Z12.31 Encounter for screening mammogram for malignant neoplasm of breast (principal)
CPT/HCPCS: 77063; 77067

== ENCOUNTER 2020-01-03 17:28 | Inpatient (IN) | payer MEDICARE ==
[2020-01-03] MEDS ORDERED: SODIUM CHLORIDE 0.9% 500 ML 500 ML IV STA (18:16)
--- NOTE | 2020-01-03 18:28 | ED ---
General Adult HPI - General Chief complaint: Arrhythmia/Palpitations Stated complaint: heart racing, weakness Time Seen by Provider: 01/03/20 18:05 Source: patient, RN notes reviewed, old records reviewed Mode of arrival: wheelchair Limitations: no limitations - History of Present Illness Initial comments: 69-year-old female presenting for evaluation of palpitations and racing heart and generalized weakness and fatigue throughout the day today. She states that with any activity she becomes dyspneic and develops higher than normal heart rate for her. This does improve with rest. She has no known history of cardiac dysrhythmia. No history of DVT or PE. She denies associated cough or URI symptoms. No fever. She has been eating and drinking well. No dysuria. No abdominal pain nausea vomiting. - Related Data Home Medications Medication Instructions Recorded Confirmed Allopurinol 300 mg PO DAILY 09/19/13 01/03/20 Levothyroxine Sodium [Synthroid] 50 mcg PO DAILY 09/19/13 01/03/20 hydroCHLOROthiazide [Hydrodiuril] 25 mg PO DAILY 08/20/14 01/03/20 Losartan Potassium 50 mg PO DAILY 02/15/17 01/03/20 Atorvastatin Calcium [Lipitor] 10 mg PO HS 06/02/18 01/03/20 Acetaminophen Tab [Tylenol] 500 - 1,000 mg PO Q6HR PRN 01/03/20 01/03/20 Aspirin EC [Ecotrin Low Dose] 81 mg PO DAILY 01/03/20 01/03/20 Cetirizine HCl [Zyrtec] 10 mg PO DAILY PRN 01/03/20 01/03/20 Melatonin 5 mg PO HS PRN 01/03/20 01/03/20 Previous Rx's Medication Instructions Recorded Potassium Chloride ER [K-Dur 20] 20 meq PO DAILY #14 tab 06/02/18 Allergies Allergy/AdvReac Type Severity Reaction Status Date / Time amitriptyline HCl Allergy Rapid Verified 01/03/20 18:58 [From Elavil] Heart Rate codeine Allergy Vomiting Verified 01/03/20 18:58 codeine phosphate Allergy Vomiting Verified 01/03/20 18:58 [From Tylenol-Codeine #3] hydrocodone Allergy Rash/Hives Verified 01/03/20 18:58 hydrocodone bitartrate Allergy Rash/Hives Verified 01/03/20 18:58 [From Lortab] indomethacin [From Indocin] Allergy Vomiting Verified 01/03/20 18:58 indomethacin sodium Allergy Vomiting Verified 01/03/20 18:58 [From Indocin] nifedipine [From Procardia] Allergy Did not Verified 01/03/20 18:58 maintain blood pressure Penicillins Allergy Rash/Hives Verified 01/03/20 18:58 amlodipine besylate AdvReac lower leg Verified 01/03/20 18:58 [From Norvasc] edema, did not maintain blood pressure enalapril maleate AdvReac Cough Verified 01/03/20 18:58 [From Vasotec] enalaprilat dihydrate AdvReac Cough Verified 01/03/20 18:58 [From Vasotec] propoxyphene HCl AdvReac Vomiting Verified 01/03/20 18:58 [From Darvon] anesthetics AdvReac Nausea & Uncoded 01/03/20 17:42 Vomiting Review of Systems ROS Statement: Those systems with pertinent positive or pertinent negative responses have been documented in the HPI. ROS Other: All systems not noted in ROS Statement are negative. Past Medical History Past Medical History: Chest Pain / Angina, Diabetes Mellitus, GERD/Reflux, Hyperlipidemia, Hypertension, Musculoskeletal Disorder, Osteoarthritis (OA), Pneumonia, Sleep Apnea/CPAP/BIPAP, Syncope, Thyroid Disorder Additional Past Medical History / Comment(s): Heart Murmur. SL CATARACTS. GOUT. SYNCOPAL EPISODE W/ SEIZURE X1. NO TX FOR SLEEP APNEA. PAST SHINGLES. RT EAR SL LOSS W/TINNITUS R/T VIRUS. HERNIATED DISC BACK, SCIATICA. N/T RT LEG/FOOT; USES QUAD CANE PRN. HAD STRESS TEST, MEDICAL CLEARANCE 08/26/15. History of Any Multi-Drug Resistant Organisms: None Reported Past Surgical History: Adenoidectomy, Back Surgery, Bladder Surgery, Cholecy stectomy, Heart Catheterization, Orthopedic Surgery, Tonsillectomy, Tubal Ligation Additional Past Surgical History / Comment(s): 09/02/15 lumbar laminectomy discectomy L4-L5. Other surgical hx: Bladder Suspension, GABBIE HIP RE- ALIGNMENTS. ORIF LT WRIST. RT CTR. RT ANKLE BENIGN TUMOR EXC. Lipoma EXC Rt wrist, EXC GANGLION CYSTS X3 RT WRIST. RT BREAST CYST EXC. Dental Implants x6. LT KNEE SCOPE. EPIDURAL INJ BACK X4, LAST 07/23/15, Past Anesthesia/Blood Transfusion Reactions: Family History of Problems w/ Anesthesia, Motion Sickness, Postoperative Nausea & Vomiting (PONV) Additional Past Anesthesia/Blood Transfusion Reaction / Comment(s): SEVERE PONV. MOTHER, SISTERS HAVE PONV. Past Psychological History: No Psychological Hx Reported Smoking Status: Never smoker Past Alcohol Use History: None Reported Past Drug Use History: None Reported - Past Family History Mother Family Medical History: Diabetes Mellitus Father Family Medical History: Diabetes Mellitus Additional Family Medical History / Comment(s): HEART PROBLEMS General Exam Limitations: no limitations General appearance: alert, in no apparent distress Head exam: Present: atraumatic, normocephalic Eye exam: Present: normal appearance, PERRL ENT exam: Present: mucous membranes dry Neck exam: Present: normal inspection. Absent: tenderness, meningismus Respiratory exam: Present: normal lung sounds bilaterally. Absent: respiratory distress, wheezes, rales, rhonchi Cardiovascular Exam: Present: regular rate, normal rhythm GI/Abdominal exam: Present: soft. Absent: distended, tenderness, guarding Extremities exam: Present: normal inspection, normal capillary refill. Absent: pedal edema Neurological exam: Present: alert, oriented X3, CN II-XII intact. Absent: motor sensory deficit Psychiatric exam: Present: normal affect, normal mood Skin exam: Present: warm, dry, intact. Absent: cyanosis, diaphoretic Course Vital Signs 01/03/20 01/03/20 01/03/20 17:39 18:58 19:24 Temperature 97.7 F Pulse Rate 107 H Respiratory 18 Rate Blood Pressure 148/77 168/101 148/82 O2 Sat by Pulse 97 Oximetry EKG Findings - EKG Comments: EKG Findings:: EKG: Sinus rhythm with PVC, T-wave inversion in the precordial leads, similar compared to previous EKGs. No ST segment elevation. Rate of 81, MO interval 174, QRS duration 80, QTC 425 Medical Decision Making - Medical Decision Making 69 -year-old female who had presented with palpitations, generalized weakness and fatigue. Patient denies cough. She does have some associated dyspnea. No URI symptoms. No vomiting. No dysuria or hematuria. EKG is sinus rhythm, unchanged from baseline no ST segment elevation. Chest x-ray is clear no focal pneumonia or pneumothorax. Patient has normal CBC, CMP shows a potassium 3.4 low side of normal. Magnesium 1.4. She does have chronic kidney disease and this is at baseline. Urinalysis showing 4+ glucose with no other acute abnormalities. She's given IV hydration, lateral replacement. She will be kept in observation for telemetry, electrolyte replacement, reevaluation. - Lab Data Result diagrams: 01/03/20 18:40 01/03/20 18:40 Lab Results 01/03/20 01/03/20 01/03/20 Range/Units 18:40 18:40 18:40 WBC 11.4 H (3.8-10.6) k/uL RBC 4.68 (3.80-5.40) m/uL Hgb 14.6 (11.4-16.0) gm/dL Hct 43.0 (34.0-46.0) % MCV 92.0 (80.0-100.0) fL MCH 31.2 (25.0-35.0) pg MCHC 33.9 (31.0-37.0) g/dL RDW 13.2 (11.5-15.5) % Plt Count 296 (150-450) k/uL MPV 7.2 Neutrophils % 66 % Lymphocytes % 22 % Monocytes % 6 % Eosinophils % 4 % Basophils % 1 % Neutrophils # 7.6 (1.3-7.7) k/uL Lymphocytes # 2.5 (1.0-4.8) k/uL Monocytes # 0.6 (0-1.0) k/uL Eosinophils # 0.5 (0-0.7) k/uL Basophils # 0.1 (0-0.2) k/uL PT 9.6 (9.0-12.0) sec INR 0.9 (<1.2) APTT 22.1 (22.0-30.0) sec D-Dimer 0.27 (<0.60) mg/L FEU Sodium 138 (137-145) mmol/L Potassium 3.4 L (3.5-5.1) mmol/L Chloride 104 (98-107) mmol/L Carbon Dioxide 25 (22-30) mmol/L Anion Gap 9 mmol/L BUN 28 H (7-17) mg/dL Creatinine 1.10 H (0.52-1.04) mg/dL Est GFR (CKD-EPI)AfAm 58 (>60 ml/min/1.73 sqM) Est GFR (CKD-EPI)NonAf 51 (>60 ml/min/1.73 sqM) Glucose 184 H (74-99) mg/dL Plasma Lactic Acid Arturo (0.7-2.0) mmol/L Calcium 10.1 (8.4-10.2) mg/dL Magnesium 1.4 L (1.6-2.3) mg/dL Total Bilirubin 0.4 (0.2-1.3) mg/dL AST 27 (14-36) U/L ALT 25 (4-34) U/L Alkaline Phosphatase 71 (38-126) U/L Troponin I (0.000-0.034) ng/mL Total Protein 6.6 (6.3-8.2) g/dL Albumin 4.2 (3.5-5.0) g/dL Urine Color Urine Appearance (Clear) Urine pH (5.0-8.0) Ur Specific [place] (1.001-1.035) Urine Protein (Negative) Urine Glucose (UA) (Negative) Urine Ketones (Negative) Urine Blood (Negative) Urine Nitrite (Negative) Urine Bilirubin (Negative) Urine Urobilinogen (<2.0) mg/dL Ur Leukocyte Esterase (Negative) Acetone, Qual Negative (Negative) 01/03/20 01/03/20 01/03/20 Range/Units 18:40 18:40 18:40 WBC (3.8-10.6) k/uL RBC (3.80-5.40) m/uL Hgb (11.4-16.0) gm/dL Hct (34.0-46.0) % MCV (80.0-100.0) fL MCH (25.0-35.0) pg MCHC (31.0-37.0) g/dL RDW (11.5-15.5) % Plt Count (150-450) k/uL MPV Neutrophils % % Lymphocytes % % Monocytes % % Eosinophils % % Basophils % % Neutrophils # (1.3-7.7) k/uL Lymphocytes # (1.0-4.8) k/uL Monocytes # (0-1.0) k/uL Eosinophils # (0-0.7) k/uL Basophils # (0-0.2) k/uL PT (9.0-12.0) sec INR (<1.2) APTT (22.0-30.0) sec D-Dimer (<0.60) mg/L FEU Sodium (137-145) mmol/L Potassium (3.5-5.1) mmol/L Chloride (98-107) mmol/L Carbon Dioxide (22-30) mmol/L Anion Gap mmol/L BUN (7-17) mg/dL Creatinine (0.52-1.04) mg/dL Est GFR (CKD-EPI)AfAm (>60 ml/min/1.73 sqM) Est GFR (CKD-EPI)NonAf (>60 ml/min/1.73 sqM) Glucose (74-99) mg/dL Plasma Lactic Acid Arturo 1.9 (0.7-2.0) mmol/L Calcium (8.4-10.2) mg/dL Magnesium (1.6-2.3) mg/dL Total Bilirubin (0.2-1.3) mg/dL AST (14-36) U/L ALT (4-34) U/L Alkaline Phosphatase (38-126) U/L Troponin I <0.012 (0.000-0.034) ng/mL Total Protein (6.3-8.2) g/dL Albumin (3.5-5.0) g/dL Urine Color Light Yellow Urine Appearance Clear (Clear) Urine pH 5.5 (5.0-8.0) Ur Specific [place] 1.015 (1.001-1.035) Urine Protein Negative (Negative) Urine Glucose (UA) 4+ H (Negative) Urine Ketones Negative (Negative) Urine Blood Negative (Negative) Urine Nitrite Negative (Negative) Urine Bilirubin Negative (Negative) Urine Urobilinogen <2.0 (<2.0) mg/dL Ur Leukocyte Esterase Negative (Negative) Acetone, Qual (Negative) Disposition Clinical Impression: Dehydration, Hypomagnesemia, Generalized weakness Disposition: ADMITTED IP TO THIS HOSP Condition: Stable Is patient prescribed a controlled substance at d/c from ED?: No Referrals: Hanna Ortez MD [Primary Care Provider] - 1-2 days Decision to Admit Reason: Admit from EC Decision Date: 01/03/20 Decision Time: 19:58
[2020-01-03 19:02] LABS: Appearance,Urine Clear (Clear); Basophils # (A) 0.1 k/uL (0-0.2); Basophils % (A) 1 %; Bilirubin,Urine Negative (Negative); Blood,Urine Negative (Negative); Color,Urine Light Yellow; Eosinophils # (A) 0.5 k/uL (0-0.7); Eosinophils % (A) 4 %; Glucose,Urine (UA) 4+ (Negative); HGB 14.6 gm/dL (11.4-16.0); Ketones,Urine Negative (Negative); Leukocyte Esterase,Urine Negative (Negative); Lymphocytes # (A) 2.5 k/uL (1.0-4.8); Lymphocytes % (A) 22 %; MCH 31.2 pg (25.0-35.0); MCHC 33.9 g/dL (31.0-37.0); Mean Platelet Volume 7.2; Monocytes # (A) 0.6 k/uL (0-1.0); Monocytes % (A) 6 %; Neutrophils # (A) 7.6 k/uL (1.3-7.7); Neutrophils % (A) 66 %; Nitrite,Urine Negative (Negative); PH, Urine 5.5 (5.0-8.0); Platelet Count 296 k/uL (150-450); Protein,Urine Negative (Negative); RBC 4.68 m/uL (3.80-5.40); RDW 13.2 % (11.5-15.5); Specific Gravity,Urine 1.015 (1.001-1.035); Urobilinogen,Urine <2.0 mg/dL (<2.0); WBC 11.4 k/uL (3.8-10.6)
[2020-01-03 19:12] LABS: ALT 25 U/L (4-34); AST 27 U/L (14-36); African American GFR (CKD) 58 (>60 ml/min/1.73 sqM); Albumin 4.2 g/dL (3.5-5.0); Alkaline Phosphatase 71 U/L (38-126); Anion Gap 9 mmol/L; Blood Urea Nitrogen 28 mg/dL (7-17); Calcium 10.1 mg/dL (8.4-10.2); Carbon Dioxide 25 mmol/L (22-30); Chloride 104 mmol/L (98-107); Glucose 184 mg/dL (74-99); Magnesium 1.4 mg/dL (1.6-2.3); Non-African American GFR(CKD) 51 (>60 ml/min/1.73 sqM); Potassium 3.4 mmol/L (3.5-5.1); Sodium 138 mmol/L (137-145); Total Bilirubin 0.4 mg/dL (0.2-1.3); Total Protein 6.6 g/dL (6.3-8.2)
[2020-01-03] MEDS ORDERED: MAGNESIUM SULFATE-D5W PMX 1 GM in DEXTROSE/WATER 1 100ML.BAG IVPB ONE (19:15)
[2020-01-03 19:18] LABS: D-Dimer 0.27 mg/L FEU (<0.60); INR 0.9 (<1.2); Partial Thromboplastin Time 22.1 sec (22.0-30.0); Prothrombin Time 9.6 sec (9.0-12.0)
--- NOTE | 2020-01-03 19:25 | XR ---
EXAMINATION TYPE: XR chest 2V DATE OF EXAM: 01/03/2020 COMPARISON: 06/02/2018 HISTORY: Dysrhythmia TECHNIQUE: FINDINGS: Heart and mediastinum are normal. Lungs are clear. Diaphragm is normal. Bony thorax appears normal. There are chest leads. IMPRESSION: Normal chest. No change.
[2020-01-03] MEDS ORDERED: NALOXONE 0.4 MG/ML 1 ML VIAL IV PRN (19:54)
[2020-01-03] MEDS ORDERED: POTASSIUM CHLORIDE ER 20 MEQ TAB.ER PO STA (19:54)
[2020-01-03] MEDS ORDERED: ACETAMINOPHEN TAB 325 MG TAB PO PRN (19:54)
[2020-01-03] MEDS ORDERED: SODIUM CHLORIDE 0.9% 1,000 ML IV SCH (20:00)
[2020-01-04 08:06] LABS: Glucose,Whole Blood 119 mg/dL (75-99)
[2020-01-04 08:12] LABS: Basophils # (A) 0.1 k/uL (0-0.2); Basophils % (A) 1 %; Eosinophils # (A) 0.6 k/uL (0-0.7); Eosinophils % (A) 5 %; HCT 42.3 % (34.0-46.0); HGB 14.1 gm/dL (11.4-16.0); Lymphocytes # (A) 2.5 k/uL (1.0-4.8); Lymphocytes % (A) 24 %; MCH 31.3 pg (25.0-35.0); MCHC 33.4 g/dL (31.0-37.0); MCV 93.7 fL (80.0-100.0); Mean Platelet Volume 7.2; Monocytes # (A) 0.6 k/uL (0-1.0); Monocytes % (A) 5 %; Neutrophils # (A) 6.6 k/uL (1.3-7.7); Neutrophils % (A) 63 %; Platelet Count 293 k/uL (150-450); RBC 4.52 m/uL (3.80-5.40); RDW 13.4 % (11.5-15.5); WBC 10.5 k/uL (3.8-10.6)
[2020-01-04 08:42] VITALS: TEMP 97.7
[2020-01-04] MEDS ORDERED: MELATONIN 5 MG TABLET PO PRN (09:49)
[2020-01-04 10:04] VITALS: BP 145/72; PULSE 87; RESP 18
[2020-01-04] MEDS ORDERED: POTASSIUM CHLORIDE ER 20 MEQ TAB.ER PO STA (10:18)
[2020-01-04] MEDS: MAGNESIUM SULFATE-D5W PMX 1 GM in DEXTROSE/WATER 1 100ML.BAG IVPB SCH ×3 (10:27→12:50)
[2020-01-04] MEDS ORDERED: LOSARTAN 50 MG TAB PO SCH (10:30)
[2020-01-04] MEDS ORDERED: allopurinoL 300 MG TAB PO SCH (10:30)
[2020-01-04] MEDS ORDERED: ASPIRIN 81 MG PO SCH (10:30)
[2020-01-04 11:00] LABS: African American GFR (CKD) 65.6 (60.0-200.0); Albumin 4.2 g/dL (3.80-4.90); Albumin/Globulin Ratio 2.63 (1.60-3.17); Anion Gap 8.4 mmol/L (4.00-12.00); Calcium 9.4 mg/dL (8.7-10.3); Carbon Dioxide 27.6 mmol/L (21.6-31.8); Globulin 1.6 g/dL (1.6-3.3); Magnesium 1.4 mg/dL (1.5-2.4); Non-African American GFR(CKD) 56.6 (60.0-200.0); Potassium 3.6 mmol/L (3.5-5.5); Total Bilirubin 0.6 mg/dL (0.3-1.2); Total Protein 5.8 g/dL (6.2-8.2)
--- NOTE | 2020-01-04 11:05 | P.HPIM ---
History of Present Illness Patient is an 69-year-old female came in with complaints of palpitations. Patient checked with the her pulse and it found it is found to be in 90s patient says her pulse is usually around 50-60s. Patient will pressure was elevated as well. Patient states that she has been under a lot of stress because of one of the siblings being in hospice and the expiration of another sibling. It happened a month ago patient is not severely depressed at this timePatient's EKG showed sinus rhythm heart rate in 80s no other significant abnormality. Patient was bit short of breath when she had palpitations patient denied any chest pain at this time. Patient doesn't have any fever chills no evidence of sepsis patient is mildly dehydrated with mildly elevated serum creatinine of around 1.1. Patient received IV fluids. Patient on hydrochlorothiazide and patient is found to have low magnesium and potassium seconded to that. Echocardiogram was ordered. Patient is also on cetirizine which is an anticholinergic medication which can increase the heart rate. Review of Systems REVIEW OF SYSTEMS: CONSTITUTIONAL: No fever, no malaise, no fatigue. HEENT: No recent visual problems or hearing problems. Denied any sore throat. CARDIOVASCULAR: No chest pain, orthopnea, PND, , no syncope. PULMONARY: no cough, no hemoptysis. GASTROINTESTINAL: No diarrhea, no nausea, no vomiting, no abdominal pain. NEUROLOGICAL: No headaches, no weakness, no numbness. HEMATOLOGICAL: Denies any bleeding or petechiae. GENITOURINARY: Denies any burning micturition, frequency, or urgency. MUSCULOSKELETAL/RHEUMATOLOGICAL: Denies any joint pain, swelling, or any muscle pain. ENDOCRINE: Denies any polyuria or polydipsia. The rest of the 14-point review of systems is negative. Past Medical History Past Medical History: Chest Pain / Angina, Diabetes Mellitus, GERD/Reflux, Hyperlipidemia, Hypertension, Musculoskeletal Disorder, Osteoarthritis (OA), Pneumonia, Sleep Apnea/CPAP/BIPAP, Syncope, Thyroid Disorder Additional Past Medical History / Comment(s): Heart Murmur. SL CATARACTS. GOUT. SYNCOPAL EPISODE W/ SEIZURE X1. NO TX FOR SLEEP APNEA. PAST SHINGLES. RT EAR SL LOSS W/TINNITUS R/T VIRUS. HERNIATED DISC BACK, SCIATICA. N/T RT L EG/FOOT; USES QUAD CANE PRN. HAD STRESS TEST, MEDICAL CLEARANCE 7/5/16. History of Any Multi-Drug Resistant Organisms: None Reported Past Surgical History: Adenoidectomy, Back Surgery, Bladder Surgery, Cholecystectomy, Heart Catheterization, Orthopedic Surgery, Tonsillectomy, Tubal Ligation Additional Past Surgical History / Comment(s): 09/02/15 lumbar laminectomy discectomy L4-L5. Other surgical hx: Bladder Suspension, GABBIE HIP RE- ALIGNMENTS. ORIF LT WRIST. RT CTR. RT ANKLE BENIGN TUMOR EXC. Lipoma EXC Rt wrist, EXC GANGLION CYSTS X3 RT WRIST. RT BREAST CYST EXC. Dental Implants x6. LT KNEE SCOPE. EPIDURAL INJ BACK X4, LAST 07/23/15, Past Anesthesia/Blood Transfusion Reactions: Family History of Problems w/ Anesthesia, Motion Sickness, Postoperative Nausea & Vomiting (PONV) Additional Past Anesthesia/Blood Transfusion Reaction / Comment(s): SEVERE PONV. MOTHER, SISTERS HAVE PONV. Past Psychological History: No Psychological Hx Reported Smoking Status: Never smoker Past Alcohol Use History: None Reported Past Drug Use History: None Reported - Past Family History Mother Family Medical History: Diabetes Mellitus Father Family Medical History: Diabetes Mellitus Additional Family Medical History / Comment(s): HEART PROBLEMS Medications and Allergies Home Medications Medication Instructions Recorded Confirmed Type Allopurinol 300 mg PO DAILY 09/19/13 01/03/20 History Levothyroxine Sodium [Synthroid] 50 mcg PO DAILY 09/19/13 01/03/20 History Losartan Potassium 50 mg PO DAILY 02/15/17 01/03/20 History Atorvastatin Calcium [Lipitor] 10 mg PO HS 06/02/18 01/03/20 History Potassium Chloride ER [K-Dur 20] 20 meq PO DAILY #14 tab 06/02/18 01/03/20 Rx Acetaminophen Tab [Tylenol] 500 - 1,000 mg PO Q6HR PRN 01/03/20 01/03/20 History Aspirin EC [Ecotrin Low Dose] 81 mg PO DAILY 01/03/20 01/03/20 History Cetirizine HCl [Zyrtec] 10 mg PO DAILY PRN 01/03/20 01/03/20 History Melatonin 5 mg PO HS PRN 01/03/20 01/03/20 History amLODIPine [Norvasc] 5 mg PO DAILY #30 tab 01/04/20 Rx Allergies Allergy/AdvReac Type Severity Reaction Status Date / Time amitriptyline HCl Allergy Rapid Verified 01/03/20 18:58 [From Elavil] Heart Rate codeine Allergy Vomiting Verified 01/03/20 18:58 codeine phosphate Allergy Vomiting Verified 01/03/20 18:58 [From Tylenol-Codeine #3] hydrocodone Allergy Rash/Hives Verified 01/03/20 18:58 hydrocodone bitartrate Allergy Rash/Hives Verified 01/03/20 18:58 [From Lortab] indomethacin [From Indocin] Allergy Vomiting Verified 01/03/20 18:58 indomethacin sodium Allergy Vomiting Verified 01/03/20 18:58 [From Indocin] nifedipine [From Procardia] Allergy Did not Verified 01/03/20 18:58 maintain blood pressure Penicillins Allergy Rash/Hives Verified 01/03/20 18:58 amlodipine besylate AdvReac lower leg Verified 01/03/20 18:58 [From Norvasc] edema, did not maintain blood pressure enalapril maleate AdvReac Cough Verified 01/03/20 18:58 [From Vasotec] enalaprilat dihydrate AdvReac Cough Verified 01/03/20 18:58 [From Vasotec] propoxyphene HCl AdvReac Vomiting Verified 01/03/20 18:58 [From Darvon] anesthetics AdvReac Nausea & Uncoded 01/03/20 17:42 Vomiting Physical Exam Vitals: Vital Signs Temp Pulse Pulse Resp BP BP Pulse Ox 01/04/20 10:03 87 18 145/72 98 01/04/20 07:00 97.7 F 75 16 168/107 98 01/04/20 06:45 98.2 F 68 18 162/82 98 01/04/20 00:40 80 17 166/99 97 01/03/20 20:40 87 17 129/61 97 01/03/20 20:30 80 16 135/52 97 01/03/20 20:10 85 17 145/69 95 01/03/20 19:40 100 158/84 98 01/03/20 19:24 148/82 01/03/20 19:20 85 148/82 99 01/03/20 19:00 93 168/101 98 01/03/20 18:58 168/101 01/03/20 17:39 97.7 F 107 H 18 148/77 97 Intake and Output 01/03/20 01/04/20 01/04/20 22:59 06:59 14:59 Other: Voiding Method Toilet # Voids 1 Weight 81.647 kg PHYSICAL EXAMINATION: GENERAL: The patient is alert and oriented x3, not in any acute distress. Well developed, well nourished. HEENT: Pupils are round and equally reacting to light. EOMI. No scleral icterus. No conjunctival pallor. Normocephalic, atraumatic. No pharyngeal erythema. No thyromegaly. CARDIOVASCULAR: S1 and S2 present. No murmurs, rubs, or gallops. PULMONARY: Chest is clear to auscultation, no wheezing or crackles. ABDOMEN: Soft, nontender, nondistended, normoactive bowel sounds. No palpable organomegaly. MUSCULOSKELETAL: No joint swelling or deformity. EXTREMITIES: No cyanosis, clubbing, or pedal edema. NEUROLOGICAL: Gross neurological examination did not reveal any focal deficits. SKIN: No rashes. Results CBC & Chem 7: 01/04/20 07:46 01/03/20 18:40 Labs: Abnormal Lab Results - Last 24 Hours (Table) 01/03/20 01/03/20 01/03/20 Range/Units 18:40 18:40 18:40 WBC 11.4 H (3.8-10.6) k/uL Potassium 3.4 L (3.5-5.1) mmol/L BUN 28 H (7-17) mg/dL Creatinine 1.10 H (0.52-1.04) mg/dL Glucose 184 H (74-99) mg/dL POC Glucose (mg/dL) (75-99) mg/dL Magnesium 1.4 L (1.6-2.3) mg/dL Urine Glucose (UA) 4+ H (Negative) 01/04/20 Range/Units 07:58 WBC (3.8-10.6) k/uL Potassium (3.5-5.1) mmol/L BUN (7-17) mg/dL Creatinine (0.52-1.04) mg/dL Glucose (74-99) mg/dL POC Glucose (mg/dL) 119 H (75-99) mg/dL Magnesium (1.6-2.3) mg/dL Urine Glucose (UA) (Negative) Assessment and Plan Plan: -Palpitations: He appears to be stress-induced patient is not severely depressed at this time since her significant life event happened less than a month ago patient will not be started on antidepressants patient will follow with PCP. Normal sinus rhythm since admission and hospitalization. Patient will be discharged on small dose of Coreg instead of hydrochlorothiazide. -Hypertension mildly elevated blood pressures secondary to stress. Patient will be given prescription of Coreg. Patient didn't tolerate Norvasc in the past patient had ankle edema secondary to calcium Yamila in the past. Hydrochlorothiazide presently will be discontinued because of her persistent hypomagnesemia and hypo-kalemia and her kidney function is borderline because of which the hydrochlorothiazide may not be effective. -Hypomagnesemia magnesium will be replaced -Hypokalemia potassium will be replaced, secondary to diuretic -Gastroesophageal reflux disease -Hypothyroidism: TSH is pending -Does have history of type 2 diabetes mellitus not in any medications for diabetes probably diet-controlled and patient will follow with PCP as an outpatient --Sleep apnea As mentioned above patient will be discharged and her echocardiogram will be reviewed.
--- NOTE | 2020-01-04 11:06 | P.DS ---
Providers Date of admission: 01/03/20 19:56 Attending physician: Stevan Coats Primary care physician: Hanna Ortez [facility] Course: As mentioned in HPI Patient Condition at Discharge: Stable Plan - Discharge Summary New Discharge Prescriptions: New carvediloL [Coreg] 3.125 mg PO BID #60 tablet Discontinued hydroCHLOROthiazide [Hydrodiuril] 25 mg PO DAILY Potassium Chloride ER [K-Dur 20] 20 meq PO DAILY #14 tab No Action Levothyroxine Sodium [Synthroid] 50 mcg PO DAILY Allopurinol 300 mg PO DAILY Losartan Potassium 50 mg PO DAILY Atorvastatin Calcium [Lipitor] 10 mg PO HS Melatonin 5 mg PO HS PRN PRN Reason: Insomnia Cetirizine HCl [Zyrtec] 10 mg PO DAILY PRN PRN Reason: Allergy Symptoms Aspirin EC [Ecotrin Low Dose] 81 mg PO DAILY Acetaminophen Tab [Tylenol] 500 - 1,000 mg PO Q6HR PRN PRN Reason: Pain Discharge Medication List Allopurinol 300 mg PO DAILY 09/19/13 [History] Levothyroxine Sodium [Synthroid] 50 mcg PO DAILY 09/19/13 [History] Losartan Potassium 50 mg PO DAILY 02/15/17 [History] Atorvastatin Calcium [Lipitor] 10 mg PO HS 06/02/18 [History] Acetaminophen Tab [Tylenol] 500 - 1,000 mg PO Q6HR PRN 01/03/20 [History] Aspirin EC [Ecotrin Low Dose] 81 mg PO DAILY 01/03/20 [History] Cetirizine HCl [Zyrtec] 10 mg PO DAILY PRN 01/03/20 [History] Melatonin 5 mg PO HS PRN 01/03/20 [History] carvediloL [Coreg] 3.125 mg PO BID #60 tablet 01/04/20 [Rx] Follow up Appointment(s)/Referral(s): Hanna Ortez MD [Primary Care Provider] - 3 Days Discharge Disposition: HOME SELF-CARE
--- NOTE | 2020-01-04 11:36 | ECHOF ---
Referral Reason:dyspnea MEASUREMENTS -------- HEIGHT: 160.0 cm WEIGHT: 81.6 kg BP: 162/82 RVIDd: 3.8 cm (< 3.3) IVSd: 1.3 cm (0.6 - 1.1) LVIDd: 3.8 cm (3.9 - 5.3) LVPWd: 1.2 cm (0.6 - 1.1) IVSs: 1.8 cm LVIDs: 2.6 cm LVPWs: 1.7 cm LAESV Index (A-L): 26.11 ml/m Ao Diam: 2.8 cm (2.0 - 3.7) AV Cusp: 1.9 cm (1.5 - 2.6) MV EXCURSION: 12.396 mm (> 18.000) MV EF SLOPE: 43 mm/s (70 - 150) EPSS: 0.4 cm MV E Jaxson: 1.13 m/s MV DecT: 236 ms MV A Jaxson: 1.20 m/s MV E/A Ratio: 0.94 RAP: 5.00 mmHg RVSP: 32.23 mmHg FINDINGS -------- Sinus rhythm. This was a technically adequate study. The left ventricular size is normal. There is mild concentric left ventricular hypertrophy. Overa ll left ventricular systolic function is normal with, an EF between 55 - 60 %. The diastolic fillin g pattern is normal for the age of the patient 20.67. The right ventricle is mild to moderately enlarged. Normal LA size by volume 22+/-6 ml/m2. The right atrial size is normal. Interatrial and interventricular septum intact. There is no evidence of aortic regurgitation. There is no evidence of aortic stenosis. There is trace mitral regurgitation. Mild tricuspid regurgitation present. There is borderline pulmonary artery hypertension. The righ t ventricular systolic pressure, as measured by Doppler, is 32.23mmHg. There is no pulmonic regurgitation present. The aortic root size is normal. IVC Not well visulized. There is no pericardial effusion. CONCLUSIONS -------- 1. The left ventricular size is normal. 2. There is mild concentric left ventricular hypertrophy. 3. Overall left ventricular systolic function is normal with, an EF between 55 - 60 %. 4. The diastolic filling pattern is normal for the age of the patient 20.67 5. The right ventricle is mild to moderately enlarged. 6. There is trace mitral regurgitation. 7. Mild tricuspid regurgitation present. [employer] REPA[employer] TEACHER: Audrey Carson RDCS
[2020-01-04] MEDS ORDERED: carvediloL 3.125 MG TAB PO SCH (11:45)
[2020-01-04] MEDS ORDERED: ATORVASTATIN 10 MG TAB PO SCH (21:00)
[2020-01-05] MEDS ORDERED: LEVOTHYROXINE 50 MCG TAB PO SCH (06:30)
== END 2020-01-04 14:29 | disposition home or self-care (01) | DRG 641 ==
LOC: EC 17:28 → 6NMEDSUR 19:56 → 5NMEDONC 01-04 07:02
PROVIDERS: ADMIT Hospitalist; ATTEND Hospitalist
DX: E86.0 Dehydration (principal); E87.6 Hypokalemia; R94.39 Abnormal result of other cardiovascular function study; E83.42 Hypomagnesemia; E11.22 Type 2 diabetes mellitus with diabetic chronic kidney disease; E78.5 Hyperlipidemia, unspecified; G47.30 Sleep apnea, unspecified; Z99.89 Dependence on other enabling machines and devices; I12.9 Hypertensive chronic kidney disease with stage 1 through stage 4 chronic kidney disease, or unspecified chronic kidney disease; K21.9 Gastro-esophageal reflux disease without esophagitis; N18.9 Chronic kidney disease, unspecified; T50.2X5A Adverse effect of carbonic-anhydrase inhibitors, benzothiadiazides and other diuretics, initial encounter; Z79.82 Long term (current) use of aspirin; Z79.890 Hormone replacement therapy; Z79.899 Other long term (current) drug therapy; Z83.3 Family history of diabetes mellitus; Z63.4 Disappearance and death of family member; Z20.828 Contact with and (suspected) exposure to other viral communicable diseases; M54.30 Sciatica, unspecified side; M19.90 Unspecified osteoarthritis, unspecified site; Z88.4 Allergy status to anesthetic agent; Z88.1 Allergy status to other antibiotic agents; Z88.5 Allergy status to narcotic agent; Z88.0 Allergy status to penicillin; Z88.8 Allergy status to other drugs, medicaments and biological substances; H26.9 Unspecified cataract; Z98.51 Tubal ligation status; Z90.89 Acquired absence of other organs; Z87.01 Personal history of pneumonia (recurrent); M10.9 Gout, unspecified; Z90.49 Acquired absence of other specified parts of digestive tract; Z82.49 Family history of ischemic heart disease and other diseases of the circulatory system
CPT/HCPCS: 36415; 71046; 80053; 81003; 82009; 83605; 83735; 84443; 84484; 85025; 85379; 85610; 85730; 87635; 93005; 93306; 96361; 96365; 99285

== ENCOUNTER → 2020-01-07 | Outpatient (CLI) | payer MEDICARE ==
[2020-01-08 02:50] LABS: African American GFR (CKD) 58.5 (60.0-200.0); Anion Gap 10.8 mmol/L (4.00-12.00); BUN/Creat Ratio 26.36 Ratio (12.00-20.00); Calcium 9.2 mg/dL (8.7-10.3); Carbon Dioxide 24.2 mmol/L (21.6-31.8); Magnesium 1.2 mg/dL (1.5-2.4); Non-African American GFR(CKD) 50.5 (60.0-200.0); Potassium 3.6 mmol/L (3.5-5.5)
== END | disposition home or self-care (01) ==
LOC: LABWHC1 15:27
PROVIDERS: ATTEND Internal Medicine Interventional Cardiology
DX: I10 Essential (primary) hypertension (principal)
CPT/HCPCS: 36415; 80048; 83735

== ENCOUNTER → 2020-03-17 | Outpatient (CLI) | payer MEDICARE ==
--- NOTE | 2020-03-18 08:42 | USB ---
Reason for exam: clinical finding. History: Patient is postmenopausal. Benign excisional biopsy of the right breast, 1995. Took hormonal contraceptives for 4 months. Took estrogen for 3 months. Indicated problem(s): palpable abnormality in the left breast. Physical Findings: Nurse Summary: 1cm nodule 1-2 o'clock (nurse marisol). US Breast LT Left complete breast ultrasound includes all four quadrants, the retroareolar region and axilla. Finding demonstrates no cystic or solid lesion seen. At the 1-2 o'clock palpable site, corresponding to the area of decreasing lump over the course of 2 weeks shows no discrete abnormality. These results were verbally communicated with the patient and result sheet given to the patient on 03/17/20. ASSESSMENT: Negative, BI-RAD 1 RECOMMENDATION: Return to routine screening mammogram schedule for both breasts. Back on schedule for August 2020.
== END | disposition home or self-care (01) ==
LOC: RADUSWWP 14:45
PROVIDERS: ATTEND Family Medicine
DX: N64.4 Mastodynia (principal)

== ENCOUNTER 2020-09-16 09:16 | Observation (INO) | payer MEDICARE ==
[2020-09-16] MEDS ORDERED: SODIUM CHLORIDE 0.9% 500 ML 500 ML IV STA (09:35)
[2020-09-16] MEDS ORDERED: hydrALAZINE HCL 20 MG/ML 1 ML VIAL IVP STA ×2 (09:35→10:38)
[2020-09-16] MEDS ORDERED: MECLIZINE 12.5 MG TAB PO STA (09:35)
[2020-09-16] MEDS ORDERED: ONDANSETRON 4 MG/2 ML VIAL IVP STA (09:35)
[2020-09-16 10:07] LABS: Basophils # (A) 0.1 k/uL (0-0.2); Basophils % (A) 1 %; Eosinophils # (A) 0.3 k/uL (0-0.7); Eosinophils % (A) 4 %; HCT 40.2 % (34.0-46.0); HGB 13.6 gm/dL (11.4-16.0); Lymphocytes # (A) 2.4 k/uL (1.0-4.8); Lymphocytes % (A) 42 %; MCH 31.2 pg (25.0-35.0); MCHC 33.9 g/dL (31.0-37.0); MCV 92.2 fL (80.0-100.0); Mean Platelet Volume 7.4; Monocytes # (A) 0.4 k/uL (0-1.0); Monocytes % (A) 6 %; Neutrophils # (A) 2.5 k/uL (1.3-7.7); Neutrophils % (A) 43 %; Platelet Count 317 k/uL (150-450); RBC 4.36 m/uL (3.80-5.40); WBC 5.8 k/uL (3.8-10.6)
[2020-09-16 10:25] LABS: Calcium 9.8 mg/dL (8.4-10.2); Potassium 3.8 mmol/L (3.5-5.1); Total Bilirubin 0.7 mg/dL (0.2-1.3); Total Protein 6.2 g/dL (6.3-8.2)
--- NOTE | 2020-09-16 10:35 | XR ---
EXAMINATION TYPE: XR chest 2V DATE OF EXAM: 09/16/2020 COMPARISON: 01/03/2020 HISTORY: Chest pain TECHNIQUE: Frontal and lateral views of the chest are obtained. FINDINGS: There is no focal air space opacity. No evidence for pneumothorax. No pleural effusion. The cardiac silhouette size is within normal limits. The osseous structures are grossly intact. IMPRESSION: 1. No acute cardiopulmonary process.
--- NOTE | 2020-09-16 10:41 | CT ---
EXAMINATION TYPE: CT brain wo con DATE OF EXAM: 09/16/2020 COMPARISON: 06/02/2018 INDICATION: headache, dizziness, high blood pressure DLP: 1055.4 mGycm, Automated exposure control for dose reduction was used. CONTRAST: None CT of the brain is performed utilizing 3 mm thick sections through the posterior fossa and 3 mm thick sections through the remaining calvarium. Study is performed within 24 hours of arrival to the hosp [facility]. No abnormal hyperdensity is present to suggest an acute intracranial hemorrhage. No mass lesion is evident. No acute infarcts are evident. Ventricles and sulci are appropriate for the patient age. Paranasal sinuses and mastoid air cells within the [id number] are clear. No significant interval change is evident. IMPRESSIONS: 1. No acute intracranial process.
--- NOTE | 2020-09-16 10:48 | ED ---
Dizziness HPI - General Chief Complaint: Dizziness Stated Complaint: High BP, dizziness Time Seen by Provider: 09/16/20 09:23 Source: patient, RN notes reviewed Mode of arrival: wheelchair Limitations: no limitations - History of Present Illness Initial Comments: This a 70-year-old female presents emergency from she complaint of hypertension, dizziness. Patient states she felt like she is having some issues yesterday with high blood pressure. Patient wants PCP had EKG discharge. She was monitored for blood pressures at night states he bent over and stood up and got really dizzy today. She states that she also blood pressures elevating. Patien t states she's had issues with hypertensive crisis. Patient denies any chest pain or shortness breath no focal weakness states she has some pressure in her head. No fevers chills. She does have some slight nausea. - Related Data Home Medications Medication Instructions Recorded Confirmed Allopurinol 300 mg PO DAILY 09/19/13 09/16/20 Levothyroxine Sodium [Synthroid] 50 mcg PO DAILY 09/19/13 09/16/20 Losartan Potassium 50 mg PO DAILY 02/15/17 09/16/20 Atorvastatin Calcium [Lipitor] 10 mg PO HS 06/02/18 09/16/20 Acetaminophen Tab [Tylenol] 500 - 1,000 mg PO Q6HR PRN 01/03/20 09/16/20 Aspirin EC [Ecotrin Low Dose] 81 mg PO DAILY 01/03/20 09/16/20 Cetirizine HCl [Zyrtec] 10 mg PO DAILY PRN 01/03/20 09/16/20 Melatonin 5 mg PO HS PRN 01/03/20 09/16/20 ALPRAZolam [Xanax] 0.25 mg PO DAILY PRN 09/16/20 09/16/20 Magnesium Oxide [White] 500 mg PO BID 09/16/20 09/16/20 Thera-Tears 1 drop BOTH EYES QID PRN 09/16/20 09/16/20 Previous Rx's Medication Instructions Recorded carvediloL [Coreg] 3.125 mg PO BID #60 tablet 01/04/20 Allergies Allergy/AdvReac Type Severity Reaction Status Date / Time amitriptyline HCl Allergy Rapid Verified 09/16/20 11:51 [From Elavil] Heart Rate codeine Allergy Vomiting Verified 09/16/20 11:51 codeine phosphate Allergy Vomiting Verified 09/16/20 11:51 [From Tylenol-Codeine #3] hydrocodone Allergy Rash/Hives Verified 09/16/20 11:51 hydrocodone bitartrate Allergy Rash/Hives Verified 09/16/20 11:51 [From Lortab] indomethacin [From Indocin] Allergy Vomiting Verified 09/16/20 11:51 indomethacin sodium Allergy Vomiting Verified 09/16/20 11:51 [From Indocin] nifedipine [From Procardia] Allergy Did not Verified 09/16/20 11:51 maintain blood pressure Penicillins Allergy Rash/Hives Verified 09/16/20 11:51 amlodipine besylate AdvReac lower leg Verified 09/16/20 11:51 [From Norvasc] edema, did not maintain blood pressure enalapril maleate AdvReac Cough Verified 09/16/20 11:51 [From Vasotec] enalaprilat dihydrate AdvReac Cough Verified 09/16/20 11:51 [From Vasotec] propoxyphene HCl AdvReac Vomiting Verified 09/16/20 11:51 [From Darvon] anesthetics AdvReac Nausea & Uncoded 09/16/20 11:51 Vomiting Review of Systems ROS Statement: Those systems with pertinent positive or pertinent negative responses have been documented in the HPI. ROS Other: All systems not noted in ROS Statement are negative. Past Medical History Past Medical History: Chest Pain / Angina, Diabetes Mellitus, GERD/Reflux, Hyperlipidemia, Hypertension, Musculoskeletal Disorder, Osteoarthritis (OA), Pneumonia, Sleep Apnea/CPAP/BIPAP, Syncope, Thyroid Disorder Additional Past Medical History / Comment(s): NIDDM type II/diet controlled, decreased renal function, one past issue with potassium/magnesium, hypothyroid, gout R foot toe, recent low back pain with R side sciatica, scoliosis/DDD, MITALI without device used, current R foot pain/hammer toes with physical therapy, past shingelles, bilateral tinnitis, syncope/seizure once years ago. History of Any Multi-Drug Resistant Organisms: None Reported Past Surgical History: Adenoidectomy, Back Surgery, Bladder Surgery, Cholecystectomy, Heart Catheterization, Orthopedic Surgery, Tonsillectomy, Tubal Ligation Additional Past Surgical History / Comment(s): 09/02/15 lumbar laminectomy discectomy L4-L5, Bladder Suspension, GABBIE HIP RE-ALIGNMENTS. ORIF LT WRIST. RT CTR. RT ANKLE BENIGN TUMOR EXC. Lipoma EXC Rt wrist, EXC GANGLION CYSTS X3 RT WRIST. RT BREAST CYST EXC. Dental Implants x6. LT KNEE SCOPE. EPIDURAL INJ BACK X4, LAST 07/23/15, bilateral cataract removals/lens implants, R foot graham neuroma removal. Past Anesthesia/Blood Transfusion Reactions: Family History of Problems w/ Anesthesia, Motion Sickness, Postoperative Nausea & Vomiting (PONV) Additional Past Anesthesia/Blood Transfusion Reaction / Comment(s): SEVERE PONV. MOTHER, SISTERS HAVE PONV. Past Psychological History: No Psychological Hx Reported Smoking Status: Never smoker Past Alcohol Use History: None Reported Past Drug Use History: None Reported - Past Family History Mother Family Medical History: Diabetes Mellitus Father Family Medical History: Diabetes Mellitus Additional Family Medical History / Comment(s): HEART PROBLEMS General Exam Limitations: no limitations General appearance: alert, in no apparent distress Head exam: Present: atraumatic, normocephalic, normal inspection Eye exam: Present: normal appearance, PERRL, EOMI. Absent: scleral icterus, conjunctival injection, periorbital swelling ENT exam: Present: normal exam, normal oropharynx, mucous membranes moist Neck exam: Present: normal inspection, full ROM. Absent: tenderness, meningismus, lymphadenopathy Respiratory exam: Present: normal lung sounds bilaterally. Absent: respiratory distress, wheezes, rales, rhonchi, stridor Cardiovascular Exam: Present: regular rate, normal rhythm, normal heart sounds. Absent: systolic murmur, diastolic murmur, rubs, gallop, clicks GI/Abdominal exam: Present: soft, normal bowel sounds. Absent: distended, tenderness, guarding, rebound, rigid Neurological exam: Present: alert, oriented X3, CN II-XII intact, reflexes normal. Absent: motor sensory deficit Skin exam: Present: warm, dry, intact, normal color. Absent: rash Course Vital Signs 09/16/20 09/16/20 09/16/20 09:17 09:32 10:00 Temperature 97.6 F Pulse Rate 53 L 56 L 49 L Respiratory 16 16 16 Rate Blood Pressure 220/107 197/83 O2 Sat by Pulse 99 98 99 Oximetry 09/16/20 09/16/20 09/16/20 10:03 10:30 11:00 Temperature Pulse Rate 60 54 L 57 L Respiratory 18 15 10 L Rate Blood Pressure 197/83 197/83 186/79 O2 Sat by Pulse 99 99 99 Oximetry 09/16/20 09/16/20 11:22 11:41 Temperature 98.3 F Pulse Rate 60 86 Respiratory 18 18 Rate Blood Pressure 184/84 159/72 O2 Sat by Pulse 99 100 Oximetry Medical Decision Making - Medical Decision Making 70-year-old female presented for dizziness. Patient's had multiple rounds medications with mild improvement. Patient maintains to be symptomatic unsteady without help. Patient will be admitted for symptomatically control - Lab Data Result diagrams: 09/16/20 09:55 09/16/20 09:55 Lab Results 09/16/20 09/16/20 09/16/20 Range/Units 09:55 09:55 09:55 WBC 5.8 (3.8-10.6) k/uL RBC 4.36 (3.80-5.40) m/uL Hgb 13.6 (11.4-16.0) gm/dL Hct 40.2 (34.0-46.0) % MCV 92.2 (80.0-100.0) fL MCH 31.2 (25.0-35.0) pg MCHC 33.9 (31.0-37.0) g/dL RDW 13.0 (11.5-15.5) % Plt Count 317 (150-450) k/uL MPV 7.4 Neutrophils % 43 % Lymphocytes % 42 % Monocytes % 6 % Eosinophils % 4 % Basophils % 1 % Neutrophils # 2.5 (1.3-7.7) k/uL Lymphocytes # 2.4 (1.0-4.8) k/uL Monocytes # 0.4 (0-1.0) k/uL Eosinophils # 0.3 (0-0.7) k/uL Basophils # 0.1 (0-0.2) k/uL Sodium 139 (137-145) mmol/L Potassium 3.8 (3.5-5.1) mmol/L Chloride 108 H (98-107) mmol/L Carbon Dioxide 24 (22-30) mmol/L Anion Gap 7 mmol/L BUN 25 H (7-17) mg/dL Creatinine 1.05 H (0.52-1.04) mg/dL Est GFR (CKD-EPI)AfAm 61 (>60 ml/min/1.73 sqM) Est GFR (CKD-EPI)NonAf 53 (>60 ml/min/1.73 sqM) Glucose 127 H (74-99) mg/dL Plasma Lactic Acid Arturo 1.3 (0.7-2.0) mmol/L Calcium 9.8 (8.4-10.2) mg/dL Total Bilirubin 0.7 (0.2-1.3) mg/dL AST 34 (14-36) U/L ALT 25 (4-34) U/L Alkaline Phosphatase 77 (38-126) U/L Troponin I (0.000-0.034) ng/mL Total Protein 6.2 L (6.3-8.2) g/dL Albumin 4.0 (3.5-5.0) g/dL 09/16/20 Range/Units 09:55 WBC (3.8-10.6) k/uL RBC (3.80-5.40) m/uL Hgb (11.4-16.0) gm/dL Hct (34.0-46.0) % MCV (80.0-100.0) fL MCH (25.0-35.0) pg MCHC (31.0-37.0) g/dL RDW (11.5-15.5) % Plt Count (150-450) k/uL MPV Neutrophils % % Lymphocytes % % Monocytes % % Eosinophils % % Basophils % % Neutrophils # (1.3-7.7) k/uL Lymphocytes # (1.0-4.8) k/uL Monocytes # (0-1.0) k/uL Eosinophils # (0-0.7) k/uL Basophils # (0-0.2) k/uL Sodium (137-145) mmol/L Potassium (3.5-5.1) mmol/L Chloride (98-107) mmol/L Carbon Dioxide (22-30) mmol/L Anion Gap mmol/L BUN (7-17) mg/dL Creatinine (0.52-1.04) mg/dL Est GFR (CKD-EPI)AfAm (>60 ml/min/1.73 sqM) Est GFR (CKD-EPI)NonAf (>60 ml/min/1.73 sqM) Glucose (74-99) mg/dL Plasma Lactic Acid Arturo (0.7-2.0) mmol/L Calcium (8.4-10.2) mg/dL Total Bilirubin (0.2-1.3) mg/dL AST (14-36) U/L ALT (4-34) U/L Alkaline Phosphatase (38-126) U/L Troponin I <0.012 (0.000-0.034) ng/mL Total Protein (6.3-8.2) g/dL Albumin (3.5-5.0) g/dL Disposition Clinical Impression: Vertigo, Tinnitus, Eustachian tube dysfunction, Dizziness, Unsteady gait Disposition: ADMITTED IP TO THIS HOSP Condition: Fair Referrals: Hanna Ortez MD [Primary Care Provider] - 1-2 days
[2020-09-16] MEDS ORDERED: METOCLOPRAMIDE 5 MG/ML 2 ML VIAL IVP STA (11:18)
[2020-09-16] MEDS ORDERED: LORazepam 2 MG/ML INJ IV STA (11:53)
[2020-09-16] MEDS ORDERED: ONDANSETRON 4 MG/2 ML VIAL IVP PRN (12:32)
[2020-09-16] MEDS ORDERED: LORazepam 2 MG/ML INJ IV PRN (12:32)
[2020-09-16] MEDS ORDERED: NALOXONE 0.4 MG/ML 1 ML VIAL IV PRN (12:32)
[2020-09-16] MEDS ORDERED: ALPRAZolam 0.25 MG TAB PO PRN (12:34)
[2020-09-16] MEDS: SODIUM CHLORIDE 0.9% 1,000 ML IV SCH (13:33)
[2020-09-16 15:33] LABS: Appearance,Urine Clear (Clear); Bilirubin,Urine Negative (Negative); Blood,Urine Negative (Negative); Color,Urine Colorless; Glucose,Urine (UA) Negative (Negative); Ketones,Urine Negative (Negative); Leukocyte Esterase,Urine Negative (Negative); Nitrite,Urine Negative (Negative); PH, Urine 7.5 (5.0-8.0); Protein,Urine Negative (Negative); Specific Gravity,Urine 1.005 (1.001-1.035); Urobilinogen,Urine <2.0 mg/dL (<2.0)
[2020-09-16] MEDS ORDERED: ASPIRIN-ACET-CAFF 250-250-65MG 1 EACH TAB PO PRN (20:31)
[2020-09-16] MEDS: carvediloL 3.125 MG TAB PO SCH (21:42)
[2020-09-16] MEDS: MAGNESIUM OXIDE 400 MG TAB PO SCH (21:42)
--- NOTE | 2020-09-16 22:33 | P.HPIM ---
History of Present Illness H&P Date: 09/16/20 Chief Complaint: Dizziness Patient is a 70-year-old female with a known history of hypertension, hyperlipidemia, GERD, diabetes type 2 bmq-eyrngsx-zkyesrnjo-diet controlled, o bstructive sleep apnea not on CPAP, hypothyroidism, history of bilateral tinnitus, history of right foot toe gout, previous history of lumbar laminectomy discectomy L4-L5 and other multiple medical problems presents to ER with complaints of dizziness. Patient states that yesterday she went to her PCPs office due to elevated blood pressure at home, 180/76. Patient went to see her primary care physician when she had EKG and orthostatic hypotension was checked. Patient was sent home and was advised to take extra dose of losartan if SBP greater than 170. Last night around 7:45 PM patient states that her blood pressure was in 180s and took extra dose of losartan. Patient woke up at 7 AM and took her morning medications. She got out of the bed at around 8:30 PM and while she was dressing up she felt very dizzy and check her blood pressure again. Her blood pressure was 202/80 mmHg. She felt fuzzy and blurring of vision and felt like her right ear is plugged. Patient came to the hospital ER with her for further evaluation. Patient is also complaining of headache mainly in the back of the head. On admission blood pressure was 220/107, pulse 53, respirations 16 and pulse ox 98% on room air. CT head showed no acute intracranial process. Chest x-ray showed no acute cardio pulmonary process EKG showed sinus rhythm with occasional PVCs. Patient follows with Dr. Ludwig in the cardiology clinic. Laboratory data showed WBC 5.8 hemoglobin 13.6 and platelets 317 neck line sodiu m 139 potassium 3.8 chloride 108 BUN 25 and creatinine 1.05 Urinalysis is negative for infection. Patient was given a dose of IV hydralazine in the ER. Her blood pressure came down to 11 5/60. Review of Systems Constitutional: Patient denies any fever or chills . No generalized weakness or weight loss. Abdomen: Patient denied nausea vomiting and diarrhea and abdominal pain. Cardiovascular: Patient denies any chest pain or short of breath no pal pitations. Respiratory: patient denied any cough is from production. No shortness of breath Neurologic: Patient denied any numbness or tingling .. Does have dizziness and headache. Musculoskeletal: Patient denies any complaints of joint swelling or deformity. Skin: Negative Psychiatric: Negative Endocrine: No heat or cold intolerance. No recent weight gain. Genitourinary: No dysuria or hematuria. All other 14 point ROS negative except the above Past Medical History Past Medical History: Chest Pain / Angina, Diabetes Mellitus, GERD/Reflux, Hyperlipidemia, Hypertension, Musculoskeletal Disorder, Osteoarthritis (OA), Pneumonia, Sleep Apnea/CPAP/BIPAP, Syncope, Thyroid Disorder Additional Past Medical History / Comment(s): NIDDM type II/diet controlled, decreased renal function, one past issue with potassium/magnesium, hypothyroid, gout R foot toe, recent low back pain with R side sciatica, scoliosis/DDD, MITALI w ithout device used, current R foot pain/hammer toes with physical therapy, past shingelles, bilateral tinnitis, syncope/seizure once years ago. History of Any Multi-Drug Resistant Organisms: None Reported Past Surgical History: Adenoidectomy, Back Surgery, Bladder Surgery, Cholecystectomy, Heart Catheterization, Orthopedic Surgery, Tonsillectomy, Tubal Ligation Additional Past Surgical History / Comment(s): 09/02/15 lumbar laminectomy discectomy L4-L5, Bladder Suspension, GABBIE HIP RE-ALIGNMENTS. ORIF LT WRIST. RT CTR. RT ANKLE BENIGN TUMOR EXC. Lipoma EXC Rt wrist, EXC GANGLION CYSTS X3 RT WRIST. RT BREAST CYST EXC. Dental Implants x6. LT KNEE SCOPE. EPIDURAL INJ BACK X4, LAST 07/23/15, bilateral cataract removals/lens implants, R foot graham neuroma removal. Past Anesthesia/Blood Transfusion Reactions: Family History of Problems w/ Anesthesia, Motion Sickness, Postoperative Nausea & Vomiting (PONV) Additional Past Anesthesia/Blood Transfusion Reaction / Comment(s): SEVERE PONV. MOTHER, SISTERS HAVE PONV. Past Psychological History: No Psychological Hx Reported Smoking Status: Never smoker Past Alcohol Use History: None Reported Past Drug Use History: None Reported - Past Family History Mother Family Medical History: Diabetes Mellitus Father Family Medical History: Diabetes Mellitus Additional Family Medical History / Comment(s): HEART PROBLEMS Medications and Allergies Home Medications Medication Instructions Recorded Confirmed Type Allopurinol 300 mg PO DAILY 09/19/13 09/16/20 History Levothyroxine Sodium [Synthroid] 50 mcg PO DAILY 09/19/13 09/16/20 History Losartan Potassium 50 mg PO DAILY 02/15/17 09/16/20 History Atorvastatin Calcium [Lipitor] 10 mg PO HS 06/02/18 09/16/20 History Acetaminophen Tab [Tylenol] 500 - 1,000 mg PO Q6HR PRN 01/03/20 09/16/20 History Aspirin EC [Ecotrin Low Dose] 81 mg PO DAILY 01/03/20 09/16/20 History Cetirizine HCl [Zyrtec] 10 mg PO DAILY PRN 01/03/20 09/16/20 History Melatonin 5 mg PO HS PRN 01/03/20 09/16/20 History carvediloL [Coreg] 3.125 mg PO BID #60 tablet 01/04/20 09/16/20 Rx ALPRAZolam [Xanax] 0.25 mg PO DAILY PRN 09/16/20 09/16/20 History Magnesium Oxide [White] 500 mg PO BID 09/16/20 09/16/20 History Thera-Tears 1 drop BOTH EYES QID PRN 09/16/20 09/16/20 History Allergies Allergy/AdvReac Type Severity Reaction Status Date / Time amitriptyline HCl Allergy Rapid Verified 09/16/20 11:51 [From Elavil] Heart Rate codeine Allergy Vomiting Verified 09/16/20 11:51 codeine phosphate Allergy Vomiting Verified 09/16/20 11:51 [From Tylenol-Codeine #3] hydrocodone Allergy Rash/Hives Verified 09/16/20 11:51 hydrocodone bitartrate Allergy Rash/Hives Verified 09/16/20 11:51 [From Lortab] indomethacin [From Indocin] Allergy Vomiting Verified 09/16/20 11:51 indomethacin sodium Allergy Vomiting Verified 09/16/20 11:51 [From Indocin] nifedipine [From Procardia] Allergy Did not Verified 09/16/20 11:51 maintain blood pressure Penicillins Allergy Rash/Hives Verified 09/16/20 11:51 amlodipine besylate AdvReac lower leg Verified 09/16/20 11:51 [From Norvasc] edema, did not maintain blood pressure enalapril maleate AdvReac Cough Verified 09/16/20 11:51 [From Vasotec] enalaprilat dihydrate AdvReac Cough Verified 09/16/20 11:51 [From Vasotec] propoxyphene HCl AdvReac Vomiting Verified 09/16/20 11:51 [From Darvon] anesthetics AdvReac Nausea & Uncoded 09/16/20 11:51 Vomiting Physical Exam Vitals: Vital Signs Temp Pulse Resp BP Pulse Ox 09/16/20 15:30 80 16 115/60 97 09/16/20 15:00 81 15 136/91 09/16/20 14:30 93 16 141/83 09/16/20 14:00 99 17 136/75 95 09/16/20 13:30 112 H 16 127/63 97 09/16/20 13:00 103 H 15 122/60 95 09/16/20 12:30 114 H 20 143/76 97 09/16/20 12:00 90 16 178/90 97 09/16/20 11:41 98.3 F 86 18 159/72 100 09/16/20 11:30 77 15 159/72 98 09/16/20 11:22 60 18 184/84 99 09/16/20 11:00 57 L 10 L 186/79 99 09/16/20 10:30 54 L 15 197/83 99 09/16/20 10:03 60 18 197/83 99 09/16/20 10:00 49 L 16 197/83 99 09/16/20 09:32 56 L 16 98 09/16/20 09:17 97.6 F 53 L 16 220/107 99 Intake and Output 09/16/20 09/16/20 09/16/20 06:59 14:59 22:59 Other: Weight 82.1 kg PHYSICAL EXAMINATION: Patient is lying in the bed comfortably, no acute distress, awake alert and oriented.. HEENT: Normocephalic. Neck is supple. Pupils reactive. Nostrils clear. Oral cavity is moist. Neck reveals no JVD, carotid bruits, or thyromegaly. CHEST EXAMINATION: Trachea is central. Symmetrical expansion. Lung souza clear to auscultation and percussion. CARDIAC: Normal S1, S2 with no gallops. No murmurs ABDOMEN: Soft. Bowel sounds normal. No organomegaly. No abdominal bruits. Extremities: reveal no edema. No clubbing or cyanosis Neurologically awake, alert, oriented x3 with well-coordinated movements. No focal deficits noted Skin: No rash or skin lesions. Psychiatric: Coperative. Nonsuicidal, anxious. Musculoskeletal: No joint swelling or deformity. Normal range of motion. Results CBC & Chem 7: 09/16/20 09:55 09/18/20 08:52 Labs: Abnormal Lab Results - Last 24 Hours (Table) 09/16/20 Range/Units 09:55 Chloride 108 H (98-107) mmol/L BUN 25 H (7-17) mg/dL Creatinine 1.05 H (0.52-1.04) mg/dL Glucose 127 H (74-99) mg/dL Total Protein 6.2 L (6.3-8.2) g/dL Thrombosis Risk Factor Assmnt - DVT/VTE Prophylaxis DVT/VTE Prophylaxis: Pharmacologic Prophylaxis ordered Assessment and Plan Assessment: Dizziness and near syncopal episode likely due to hypertensive urgency Uncontrolled hypertension. Dehydration with slightly elevated BUN level. Diabetes type 2 diet-controlled Hyperlipidemia Obstructive sleep apnea not on CPAP Hypothyroidism Chronic low back pain with right-sided hepatic and History of lumbar laminectomy, discectomy L4-L5 History of syncope/seizures in the past History of gout GERD DVT prophylaxis Plan: Patient will be continued on telemetry monitoring. Gentle IV hydration. Patient was given a dose of hydralazine in the ER. Start back on home medications, Coreg and losartan. Monitor blood pressure closely. CT head is negative for any acute process. Consider neurology evaluation. Follow up closely. Discussed with the patient and her at bedside in detail. Time with Patient: Greater than 30
[2020-09-16] MEDS: HEPARIN SODIUM,PORCINE/PF 5,000 UNIT/0.5 ML SYRINGE SQ SCH (22:54)
[2020-09-17] MEDS: LEVOTHYROXINE 50 MCG TAB PO SCH (06:10)
[2020-09-17] MEDS: SODIUM CHLORIDE 0.9% 1,000 ML IV SCH (06:11)
[2020-09-17] MEDS: allopurinoL 300 MG TAB PO SCH (08:18)
[2020-09-17] MEDS: MAGNESIUM OXIDE 400 MG TAB PO SCH ×2 (08:18→21:03)
[2020-09-17] MEDS: HEPARIN SODIUM,PORCINE/PF 5,000 UNIT/0.5 ML SYRINGE SQ SCH ×2 (08:18→15:41)
[2020-09-17] MEDS: LOSARTAN 50 MG TAB PO SCH (08:18)
[2020-09-17] MEDS: carvediloL 3.125 MG TAB PO SCH ×2 (08:43→21:03)
[2020-09-17] MEDS: MECLIZINE 25 MG TAB PO PRN (11:49)
[2020-09-17 12:14] LABS: African American GFR (CKD) 58.1 (60.0-200.0); Anion Gap 11.4 mmol/L (4.00-12.00); BUN/Creat Ratio 24.55 Ratio (12.00-20.00); Calcium 9.3 mg/dL (8.7-10.3); Carbon Dioxide 23.6 mmol/L (21.6-31.8); Non-African American GFR(CKD) 50.1 (60.0-200.0); Potassium 3.9 mmol/L (3.5-5.5)
--- NOTE | 2020-09-17 14:55 | P.CRDCN ---
History of Present Illness Consult date: 09/17/20 History of present illness: HISTORY OF PRESENT ILLNESS: This is a 70-year-old female with a past medical history significant for hypertension, hyperlipidemia, and migraines. Patient follows in the office with Dr. Ludwig. We have been asked to see the patient in consultation for high blood pressure and dizziness. Patient examined at the bedside. Patient states she was out of state for the weekend visiting a family member. She states that she took all of her medications however she is not sure if she took her Coreg while on vacation. Patient states her blood pressure usually runs with a systolic in the 120s to 130s. She reports Tuesday night was sitting on the toilet and felt dizzy and felt like her right ear was plugged. She states Tuesday she had an episode of dizziness again while sitting on the couch and then again when she bent over to get dressed. She states she took her blood pressure at home and it was in the 200s. She reports an episode of dizziness this morning after she showered when she bent down to dry off. She reports feeling a fullness in her right ear. She denies chest pain or pressure. Patients blood pressure has been stable for the last 24 hours. EKG reveals sinus mechanism with PVCs Chest xray no acute cardiopulmonary process Laboratory data: WBC 5.8. Hemoglobin 13.6. Platelet count 317. Sodium 143. Potassium 3.9. BUN 27. Creatinine 1.1. Lactic acid 1.3. Troponin negative 1. Current home cardiac medications include carvedilol 3.125 mg twice a day, losartan 50 mg daily, atorvastatin 10 mg daily, aspirin 81 mg daily Most recent echocardiogram obtained in December 2019 revealed ejection fraction 55-60%. Trace mitral regurgitation. Mild tricuspid regurgitation. Cardiac catheterization history: 2006 revealing no significant coronary artery disease Patient underwent stress echo in 2019 with no evidence of ischemia REVIEW OF SYSTEMS: At the time of my exam: CONSTITUTIONAL: Denies fever or chills. HEENT: Denies blurred vision, vision changes, or eye pain. Denies hemoptysis CARDIOVASCULAR: Denies chest pain. Denies orthopnea. Denies PND. Denies palpitations RESPIRATORY: Denies shortness of breath. GASTROINTESTINAL: Denies abdominal pain. Denies nausea or vomiting. HEMATOLOGIC: Denies bleeding disorders. GENITOURINARY: Denies any blood in urine. SKIN: Denies pruitis. Denies rash. PHYSICAL EXAM: VITAL SIGNS: Reviewed. GENERAL: Well-developed in no acute distress. HEENT: Head is normocephalic. Pupils are equal, round. Sclerae anicteric. Mucous membranes of the mouth are moist. Neck supple. No JVD or thyromegaly LUNGS: Respirations even and unlabored. Lungs essentially clear to auscultation bilaterally. HEART: Regular rate and rhythm. S1 and S2 heard. ABDOMEN: Soft. Nondistended. Nontender. EXTREMITIES: Normal range of motion. No clubbing or cyanosis. Peripheral pulses intact. No lower extremity edema NEUROLOGIC: Awake and alert. Oriented x 3. ASSESSMENT: Hypertensive urgency Dizziness with right ear fullness Hyperlipidemia Migraines PLAN: Continue current cardiac medications Monitor blood pressure Check orthostatic blood pressures Patients symptoms do not appear to be cardiac related. Patient is requesting an ENT consult. No further inpatient recommendations from a cardiac standpoint Patient to follow up outpatient with Dr. Ludwig. Nurse practitioner note has been reviewed by physician. Signing provider agrees with the documented findings, assessment, and plan of care. Past Medical History Past Medical History: Chest Pain / Angina, Diabetes Mellitus, GERD/Reflux, Hyperlipidemia, Hypertension, Musculoskeletal Disorder, Osteoarthritis (OA), Pneumonia, Sleep Apnea/CPAP/BIPAP, Syncope, Thyroid Disorder Additional Past Medical History / Comment(s): NIDDM type II/diet controlled, decreased renal function, one past issue with potassium/magnesium, hypothyroid, gout R foot toe, recent low back pain with R side sciatica, scoliosis/DDD, MITALI without device used, current R foot pain/hammer toes with physical therapy, past shingelles, bilateral tinnitis, syncope/seizure once years ago. History of Any Multi-Drug Resistant Organisms: None Reported Past Surgical History: Adenoidectomy, Back Surgery, Bladder Surgery, Cholecystectomy, Heart Catheterization, Orthopedic Surgery, Tonsillectomy, Tubal Ligation Additional Past Surgical History / Comment(s): 09/02/15 lumbar laminectomy discectomy L4-L5, Bladder Suspension, GABBIE HIP RE-ALIGNMENTS. ORIF LT WRIST. RT CTR. RT ANKLE BENIGN TUMOR EXC. Lipoma EXC Rt wrist, EXC GANGLION CYSTS X3 RT WRIST. RT BREAST CYST EXC. Dental Implants x6. LT KNEE SCOPE. EPIDURAL INJ BACK X4, LAST 07/23/15, bilateral cataract removals/lens implants, R foot graham neuroma removal. Past Anesthesia/Blood Transfusion Reactions: Family History of Problems w/ Anesthesia, Motion Sickness, Postoperative Nausea & Vomiting (PONV) Additional Past Anesthesia/Blood Transfusion Reaction / Comment(s): SEVERE PONV. MOTHER, SISTERS HAVE PONV. Past Psychological History: No Psychological Hx Reported Smoking Status: Never smoker Past Alcohol Use History: None Reported Past Drug Use History: None Reported - Past Family History Mother Family Medical History: Diabetes Mellitus Father Family Medical History: Diabetes Mellitus Additional Family Medical History / Comment(s): HEART PROBLEMS Medications and Allergies Home Medications Medication Instructions Recorded Confirmed Type Allopurinol 300 mg PO DAILY 09/19/13 09/16/20 History Levothyroxine Sodium [Synthroid] 50 mcg PO DAILY 09/19/13 09/16/20 History Losartan Potassium 50 mg PO DAILY 02/15/17 09/16/20 History Atorvastatin Calcium [Lipitor] 10 mg PO HS 06/02/18 09/16/20 History Acetaminophen Tab [Tylenol] 500 - 1,000 mg PO Q6HR PRN 01/03/20 09/16/20 History Aspirin EC [Ecotrin Low Dose] 81 mg PO DAILY 01/03/20 09/16/20 History Cetirizine HCl [Zyrtec] 10 mg PO DAILY PRN 01/03/20 09/16/20 History Melatonin 5 mg PO HS PRN 01/03/20 09/16/20 History carvediloL [Coreg] 3.125 mg PO BID #60 tablet 01/04/20 09/16/20 Rx ALPRAZolam [Xanax] 0.25 mg PO DAILY PRN 09/16/20 09/16/20 History Magnesium Oxide [White] 500 mg PO BID 09/16/20 09/16/20 History Thera-Tears 1 drop BOTH EYES QID PRN 09/16/20 09/16/20 History Allergies Allergy/AdvReac Type Severity Reaction Status Date / Time amitriptyline HCl Allergy Rapid Verified 09/16/20 11:51 [From Elavil] Heart Rate codeine Allergy Vomiting Verified 09/16/20 11:51 codeine phosphate Allergy Vomiting Verified 09/16/20 11:51 [From Tylenol-Codeine #3] hydrocodone Allergy Rash/Hives Verified 09/16/20 11:51 hydrocodone bitartrate Allergy Rash/Hives Verified 09/16/20 11:51 [From Lortab] indomethacin [From Indocin] Allergy Vomiting Verified 09/16/20 11:51 indomethacin sodium Allergy Vomiting Verified 09/16/20 11:51 [From Indocin] nifedipine [From Procardia] Allergy Did not Verified 09/16/20 11:51 maintain blood pressure Penicillins Allergy Rash/Hives Verified 09/16/20 11:51 amlodipine besylate AdvReac lower leg Verified 09/16/20 11:51 [From Norvasc] edema, did not maintain blood pressure enalapril maleate AdvReac Cough Verified 09/16/20 11:51 [From Vasotec] enalaprilat dihydrate AdvReac Cough Verified 09/16/20 11:51 [From Vasotec] propoxyphene HCl AdvReac Vomiting Verified 09/16/20 11:51 [From Darvon] anesthetics AdvReac Nausea & Uncoded 09/16/20 11:51 Vomiting Physical Exam Vitals: Vital Signs Temp Pulse Pulse Resp BP BP Pulse Ox 09/17/20 08:00 69 17 09/17/20 07:00 97.9 F 69 17 126/68 97 09/17/20 02:00 98.2 F 70 18 152/83 95 09/16/20 20:00 98.0 F 87 14 155/98 95 09/16/20 18:00 90 16 124/89 100 09/16/20 15:30 80 16 115/60 97 09/16/20 15:12 96 09/16/20 15:00 81 15 136/91 09/16/20 14:30 93 16 141/83 09/16/20 14:00 99 17 136/75 95 09/16/20 13:30 112 H 16 127/63 97 Intake and Output 09/16/20 09/17/20 09/17/20 22:59 06:59 14:59 Output Total 0 Balance 0 Output: Stool 0 Other: Voiding Method Toilet Toilet # Voids 1 1 Weight 82.1 kg Results 09/16/20 09:55 09/18/20 08:52 Comprehensive Metabolic Panel 09/17/20 Range/Units 05:21 Sodium 143 (135-145) mmol/L Potassium 3.9 (3.5-5.5) mmol/L Chloride 108 (96-109) mmol/L Carbon Dioxide 23.6 (21.6-31.8) mmol/L BUN 27.0 (9.0-27.0) mg/dL Creatinine 1.1 (0.6-1.5) mg/dL Glucose 85 (70-110) mg/dL Calcium 9.3 (8.7-10.3) mg/dL Current Medications Generic Name Dose Route Start Last Admin Trade Name Freq PRN Reason Stop Dose Admin Acetaminophen/Aspirin/Caffeine 2 each 09/16/20 20:31 09/16/20 21:43 [id number] 1 Each Tab PO 2 each Q4HR PRN Administration Headache Allopurinol 300 mg 09/17/20 09:00 09/17/20 08:18 Allopurinol 300 Mg Tab PO 300 mg DAILY SEGUNDO Administration Alprazolam 0.25 mg 09/16/20 12:34 Alprazolam 0.25 Mg Tab PO DAILY PRN Anxiety Carvedilol 3.125 mg 09/16/20 21:00 09/17/20 08:43 Carvedilol 3.125 Mg Tab PO 3.125 mg BID SEGUNDO Administration Heparin Sodium (Porcine) 5,000 unit 09/17/20 00:00 09/17/20 08:18 Heparin Sodium,Porcine/Pf 5,000 Unit/0.5 Ml Syringe SQ 5,000 unit Q8HR SEGUNDO Administration Levothyroxine Sodium 50 mcg 09/17/20 06:30 09/17/20 06:10 Levothyroxine 50 Mcg Tab PO 50 mcg DAILY@0630 SEGUNDO Administration Lorazepam 0.5 mg 09/16/20 12:32 Lorazepam 2 Mg/Ml Inj IV Q6HR PRN Anxiety Losartan Potassium 50 mg 09/17/20 09:00 09/17/20 08:18 Losartan 50 Mg Tab PO 50 mg DAILY SEGUNDO Administration Magnesium Oxide 400 mg 09/16/20 21:00 09/17/20 08:18 Magnesium Oxide 400 Mg Tab PO 400 mg BID SEGUNDO Administration Meclizine HCl 25 mg 09/16/20 12:34 09/17/20 11:49 Meclizine 25 Mg Tab PO 25 mg QID PRN Administration Vertigo Naloxone HCl 0.2 mg 09/16/20 12:32 Naloxone 0.4 Mg/Ml 1 Ml Vial IV Q2M PRN Opioid Reversal Ondansetron HCl 4 mg 09/16/20 12:32 Ondansetron 4 Mg/2 Ml Vial IVP Q8HR PRN Nausea And Vomiting Intake and Output 09/16/20 09/17/20 09/17/20 22:59 06:59 14:59 Output Total 0 Balance 0 Output: Stool 0 Other: Voiding Method Toilet Toilet # Voids 1 1 Weight 82.1 kg 09/16/20 09:55 09/17/20 05:21
[2020-09-18] MEDS: HEPARIN SODIUM,PORCINE/PF 5,000 UNIT/0.5 ML SYRINGE SQ SCH ×3 (00:09→16:49)
[2020-09-18] MEDS: LEVOTHYROXINE 50 MCG TAB PO SCH (05:40)
[2020-09-18 08:04] VITALS: RESP 16
[2020-09-18] MEDS: MAGNESIUM OXIDE 400 MG TAB PO SCH ×2 (08:07→20:01)
[2020-09-18] MEDS: carvediloL 3.125 MG TAB PO SCH ×2 (08:07→20:01)
[2020-09-18] MEDS: allopurinoL 300 MG TAB PO SCH (08:07)
[2020-09-18] MEDS: LOSARTAN 50 MG TAB PO SCH (08:07)
[2020-09-18] MEDS: MECLIZINE 25 MG TAB PO PRN (08:44)
--- NOTE | 2020-09-18 08:58 | P.PN ---
Subjective Progress Note Date: 09/17/20 Patient is a 70-year-old female with a known history of hypertension, hyperlipidemia, GERD, diabetes type 2 zvy-fijbclh-[id number]-diet controlled, obstructive sleep apnea not on CPAP, hypothyroidism, history of bilateral tinnitus, history of right foot toe gout, previous history of lumbar laminectomy discectomy L4-L5 and other multiple medical problems presents to ER with complaints of dizziness. Patient states that yesterday she went to her PCPs office due to elevated blood pressure at home, 180/76. Patient went to see her primary care physician when she had EKG and orthostatic hypotension was checked. Patient was sent home and was advised to take extra dose of losartan if SBP greater than 170. Last night around 7:45 PM patient states that her blood pressure was in 180s and took extra dose of losartan. Patient woke up at 7 AM and took her morning medications. She got out of the bed at around 8:30 PM and while she was dressing up she felt very dizzy and check her blood pressure again . Her blood pressure was 202/80 mmHg. She felt fuzzy and blurring of vision and felt like her right ear is plugged. Patient came to the hospital ER with her for further evaluation. Patient is also complaining of headache mainly in the back of the head. On admission blood pressure was 220/107, pulse 53, respirations 16 and pulse ox 98% on room air. CT head showed no acute intracranial process. Chest x-ray showed no acute cardio pulmonary process EKG showed sinus rhythm with occasional PVCs. Patient follows with Dr. Ludwig in the cardiology clinic. Laboratory data showed WBC 5.8 hemoglobin 13.6 and platelets 317 neck line sodium 139 potassium 3.8 chloride 108 BUN 25 and creatinine 1.05 Urinalysis is negative for infection. Patient was given a dose of IV hydralazine in the ER. Her blood pressure came down to 11 5/60. 09/17/2020 Patient is seen in follow-up this morning and blood pressure more controlled and was resumed on home medications. Patient states she was feeling much better and wanting to take a shower and after drying off and bending over felt some fullness and right ear popping and then sat up and became very dizzy and lightheaded and needed assistance back from the bathroom. Patient states she did have a history of vertigo many years ago and does not take anything for it. Meclizine is ordered and instructed the nurse to give. 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 Ludwig evaluate the patient as she feels these symptoms are stemming from something cardiac in nature and her blood pressure medications. Patient states she recently was on vacation visiting her daughter and mistakingly missed a few doses of her Coreg. Sodium is 143 with a potassium of 3.9 and current creatinine is 1.1. TSH is 4.870. Review of systems: Constitutional: No reports of fatigue, fever, or chills Cardiovascular: No reports of chest pain or palpitations Respiratory: No reports of shortness of breath or cough GI: No reports of nausea, vomiting, or diarrhea : No reports of dysuria or retention Neurovascular: No reports of weakness or numbness, reports to some dizziness and right ear fullness with popping All medications have been reviewed Objective - Vital Signs Vital signs: Vital Signs Temp 97.9 F 09/17/20 07:00 Pulse 69 09/17/20 08:00 Resp 17 09/17/20 08:00 BP 126/68 09/17/20 07:00 Pulse Ox 97 09/17/20 07:00 Intake & Output 09/16/20 09/17/20 09/17/20 18:59 06:59 18:59 Intake Total 118 Output Total 0 Balance 0 118 Weight 82.1 kg Intake: Oral 118 Output: Stool 0 Other: Voiding Method Toilet Toilet # Voids 1 - Exam Patient is sitting up in the bed comfortably, no acute distress, awake alert and oriented.. HEENT: Normocephalic. Neck is supple. Pupils reactive. Nostrils clear. Oral cavity is moist. Neck reveals no JVD, carotid bruits, or thyromegaly. CHEST EXAMINATION: Trachea is central. Symmetrical expansion. Lung souza clear to auscultation and percussion. CARDIAC: Normal S1, S2 with no gallops. No murmurs ABDOMEN: Soft. Bowel sounds normal. No organomegaly. No abdominal bruits. Extremities: reveal no edema. No clubbing or cyanosis Neurologically awake, alert, oriented x3 with well-coordinated movements. No focal deficits noted Skin: No rash or skin lesions. Psychiatric: Cooperative. Non-suicidal. Musculoskeletal: No joint swelling or deformity. Normal range of motion. - Labs CBC & Chem 7: 09/16/20 09:55 09/17/20 05:21 Labs: Abnormal Lab Results - Last 24 Hours (Table) 09/17/20 Range/Units 05:21 Est GFR (CKD-EPI)AfAm 58.1 L (60.0-200.0) Est GFR (CKD-EPI)NonAf 50.1 L (60.0-200.0) BUN/Creatinine Ratio 24.55 H (12.00-20.00) Ratio Assessment and Plan Assessment: Dizziness and near syncopal episode likely due to hypertensive urgency Uncontrolled hypertension. Dehydration with slightly elevated BUN level. Diabetes type 2 diet-controlled Hyperlipidemia Obstructive sleep apnea not on CPAP Hypothyroidism Chronic low back pain with right-sided sciatica History of lumbar laminectomy, discectomy L4-L5 History of syncope/seizures in the past History of gout History of vertigo GERD DVT prophylaxis Full code Plan: Patient will be continued on telemetry monitoring. Gentle IV hydration. Home blood pressures including losartan and Coreg resumed and will use hydralazine as needed. Blood pressure more controlled. Patient experienced an episode of r ight ear fullness and popping status post shower and bending over to dry off and back up and became extremely lightheaded and dizzy requiring assistance back from the bathroom. Cardiology consulted along with ENT as patient does have a history of vertigo. Patient does follow with Dr. Ludwig cardiology outpatient. Monitor blood pressure closely. CT head is negative for any acute process. If symptoms persist or worsen may consider neurology evaluation. Will continue to monitor closely and continue gentle IV hydration and repeat a.m. labs his creatinine is 1.1. Possible discharge in 24 hours.
[2020-09-18 10:12] LABS: African American GFR (CKD) 66 (>60 ml/min/1.73 sqM); Anion Gap 8 mmol/L; Blood Urea Nitrogen 23 mg/dL (7-17); Calcium 9.8 mg/dL (8.4-10.2); Carbon Dioxide 27 mmol/L (22-30); Chloride 104 mmol/L (98-107); Glucose 116 mg/dL (74-99); Non-African American GFR(CKD) 57 (>60 ml/min/1.73 sqM); Potassium 4.2 mmol/L (3.5-5.1); Sodium 139 mmol/L (137-145)
[2020-09-18] MEDS ORDERED: diazePAM 5 MG TAB PO STA (13:21)
[2020-09-18] MEDS ORDERED: LORazepam 2 MG/ML INJ IV PRN (13:21)
[2020-09-18] MEDS ORDERED: ONDANSETRON 4 MG/2 ML VIAL IVP PRN (13:24)
--- NOTE | 2020-09-18 13:34 | P.CNNES ---
History of Present Illness Consult date: 09/18/20 Requesting physician: Soila Lofton Reason for Consult: Dizziness, vertigo History of Present Illness: Patient is a 70-year-old female with history of hypertension, diabetes came to the hospital because of new onset right hearing loss and recurrence of vertigo. Patient states that when she was in her 40s, she had hypertensive crisis when she had presented with vertigo, syncopal spell and was found to have blood pre ssure of 259/134. She was in ICU, treated for blood pressure and her vertigo improved. She has stayed on blood pressure medication since then. She was fine until 6-7 years ago, in the month of August, that she was planning to go in a boat trip, but even before she went on the trip, she developed dizziness and vertigo and was hospitalized for a few days. She underwent therapy. She didn't have much issues, until last 09/14/2020, when she returned back from a trip from [place]. She came home. She went to the bathroom, and was sitting in the toilet, passing the urine, not straining. She suddenly noticed her right ear light, felt like there was report/hollow in the right ear and felt dizzy and everything was spinning. The symptoms improved shortly after but occurred off and on during the day. She checked her blood pressure was running around 180 systolic. Next day on Tuesday she saw her primary physician, who also notices blood pressure was up and was recommended to take losartan with the blood pressure goes up. That night her blood pressure was high in the 180s, therefore she took losartan and slept well. The following day on Tuesday morning, she dressed up, and sat down to pull her Daisha pants on when she had a major dizzy spell. She felt will pass out. Since then she has noticed the right ear plugging has been persistent. She checked her blood pressure was 202/84. Patient came to the ER at 9:16 AM and her blood pressure in the ER was 220/107, pulse rate 53 and temperature 97.6. She does always run bradycardia. Patient underwent computed tomography scan of the head which was normal. Paranasal sinuses and external auditory canal appears clear. Chest x-ray showed no acute process. EKG with sinus rhythm with occasional PVCs. Blood test shows normal CBC, Chem-7 with borderline BUN 25, creatinine 1.05 which is improved now. Hepatic panel normal, troponin negative, TSH normal 4.87. UA negative. Patient has been started on meclizine, which is helping. She was doing better last night. However this morning when she sat up, became very dizzy, sick to stomach. She believes her plugging in the right ear has got worse, more intense since last night into today. She feels hollow sensation in the right ear as if there is a tunnel, or as if she is in the aeroplane taking off. Patient states that she does have history of bilateral tinnitus for a very long time, but seems to have gotten worse since all the symptoms started 2 days ago in the right ear. She denies any other focal neurological symptoms whatsoever. Her orthostatics include supine blood pressure 148/83, pulse rate 61, sitting 156/82, pulse rate 63 and standing 144/80, pulse rate 90, overall negative. At present she continues to have problem with the right hearing loss, feels echoing sound in the right ear, with dizziness and sometimes nausea. Review of Systems as above in detail. All other 14 point review of systems unremarkable. Denies any chest pain shortness of breath wheezing or cough. Denies abdominal pain. She does get nausea and vomiting when she gets dizzy. Denies hoarseness, sore throat, dysphagia. No rash, no fever or chills. Past Medical History Past Medical History: Chest Pain / Angina, Diabetes Mellitus, GERD/Reflux, Hyperlipidemia, Hypertension, Musculoskeletal Disorder, Osteoarthritis (OA), Pneumonia, Sleep Apnea/CPAP/BIPAP, Syncope, Thyroid Disorder Additional Past Medical History / Comment(s): NIDDM type II/diet controlled, decreased renal function, one past issue with potassium/magnesium, hypothyroid, gout R foot toe, recent low back pain with R side sciatica, scoliosis/DDD, MITALI without device used, current R foot pain/hammer toes with physical therapy, past shingelles, bilateral tinnitis, syncope/seizure once years ago. History of Any Multi-Drug Resistant Organisms: None Reported Past Surgical History: Adenoidectomy, Back Surgery, Bladder Surgery, Cholecystectomy, Heart Catheterization, Orthopedic Surgery, Tonsillectomy, Tubal Ligation Additional Past Surgical History / Comment(s): 09/02/15 lumbar laminectomy discectomy L4-L5, Bladder Suspension, GABBIE HIP RE-ALIGNMENTS. ORIF LT WRIST. RT CTR. RT ANKLE BENIGN TUMOR EXC. Lipoma EXC Rt wrist, EXC GANGLION CYSTS X3 RT WRIST. RT BREAST CYST EXC. Dental Implants x6. LT KNEE SCOPE. EPIDURAL INJ BACK X4, LAST 07/23/15, bilateral cataract removals/lens implants, R foot graham neuroma removal. Past Anesthesia/Blood Transfusion Reactions: Family History of Problems w/ Anesthesia, Motion Sickness, Postoperative Nausea & Vomiting (PONV) Additional Past Anesthesia/Blood Transfusion Reaction / Comment(s): SEVERE PONV. MOTHER, SISTERS HAVE PONV. Past Psychological History: No Psychological Hx Reported Smoking Status: Never smoker Past Alcohol Use History: None Reported Past Drug Use History: None Reported - Past Family History Mother Family Medical History: Diabetes Mellitus Father Family Medical History: Diabetes Mellitus Additional Family Medical History / Comment(s): HEART PROBLEMS Medications and Allergies Home Medications Medication Instructions Recorded Confirmed Type Allopurinol 300 mg PO DAILY 09/19/13 09/16/20 History Levothyroxine Sodium [Synthroid] 50 mcg PO DAILY 09/19/13 09/16/20 History Losartan Potassium 50 mg PO DAILY 02/15/17 09/16/20 History Atorvastatin Calcium [Lipitor] 10 mg PO HS 06/02/18 09/16/20 History Acetaminophen Tab [Tylenol] 500 - 1,000 mg PO Q6HR PRN 01/03/20 09/16/20 History Aspirin EC [Ecotrin Low Dose] 81 mg PO DAILY 01/03/20 09/16/20 History Cetirizine HCl [Zyrtec] 10 mg PO DAILY PRN 01/03/20 09/16/20 History Melatonin 5 mg PO HS PRN 01/03/20 09/16/20 History carvediloL [Coreg] 3.125 mg PO BID #60 tablet 01/04/20 09/16/20 Rx ALPRAZolam [Xanax] 0.25 mg PO DAILY PRN 09/16/20 09/16/20 History Magnesium Oxide [White] 500 mg PO BID 09/16/20 09/16/20 History Thera-Tears 1 drop BOTH EYES QID PRN 09/16/20 09/16/20 History Allergies Allergy/AdvReac Type Severity Reaction Status Date / Time amitriptyline HCl Allergy Rapid Verified 09/16/20 11:51 [From Elavil] Heart Rate codeine Allergy Vomiting Verified 09/16/20 11:51 codeine phosphate Allergy Vomiting Verified 09/16/20 11:51 [From Tylenol-Codeine #3] hydrocodone Allergy Rash/Hives Verified 09/16/20 11:51 hydrocodone bitartrate Allergy Rash/Hives Verified 09/16/20 11:51 [From Lortab] indomethacin [From Indocin] Allergy Vomiting Verified 09/16/20 11:51 indomethacin sodium Allergy Vomiting Verified 09/16/20 11:51 [From Indocin] nifedipine [From Procardia] Allergy Did not Verified 09/16/20 11:51 maintain blood pressure Penicillins Allergy Rash/Hives Verified 09/16/20 11:51 amlodipine besylate AdvReac lower leg Verified 09/16/20 11:51 [From Norvasc] edema, did not maintain blood pressure enalapril maleate AdvReac Cough Verified 09/16/20 11:51 [From Vasotec] enalaprilat dihydrate AdvReac Cough Verified 09/16/20 11:51 [From Vasotec] propoxyphene HCl AdvReac Vomiting Verified 09/16/20 11:51 [From Darvon] anesthetics AdvReac Nausea & Uncoded 09/16/20 11:51 Vomiting Physical Examination - Vital Signs Vital Signs: Vital Signs Temp Pulse Pulse Pulse Pulse Resp BP 09/18/20 07:00 97.9 F 59 L 16 09/18/20 01:32 97.5 F L 53 L 18 09/17/20 20:00 98.0 F 63 18 09/17/20 15:27 63 90 61 156/102 09/17/20 14:48 98.2 F 57 L 16 09/17/20 14:00 69 17 BP BP BP Pulse Ox 09/18/20 07:00 174/73 98 09/18/20 01:32 127/73 97 09/17/20 20:00 169/67 98 09/17/20 15:27 144/80 148/83 09/17/20 14:48 141/64 96 09/17/20 14:00 Intake and Output 09/17/20 09/18/20 09/18/20 22:59 06:59 14:59 Output Total 0 Balance 0 Output: Stool 0 Other: Voiding Method Toilet # Voids 2 1 1 Patient is an elderly female, very pleasant, in no acute distress. Patient is alert awake oriented to time place and person. Speech and language functions are normal. Attention, concentration and fund of knowledge is adequate. On cranial examination, pupils are equal, round and reacting to light, visual souza are full on confrontation, extraocular muscles are intact. Patient has mild lateral beating nystagmus noted in end gaze bilaterally. Face is symmetr ic, tongue protrudes to the midline. Palatal elevation and sensation normal. Her hearing is decreased for conversation only in the right ear. However for finger rubbing, she has very severely decreased hearing on the right, and moderate to severe on the left. I had to snap my fingers for her to hear. Her facial sensation normal. Shoulder shrug normal. On muscle strength testing, there is no pronator drift and the strength is normal in arms and legs distally and proximally. Deep tendon reflexes are 2 on over in the arms and legs except right knee which is 1. Plantars downgoing. Sensory to touch is equal with no neglect. Cerebellar function showed no ataxia for [id number] testing. No ataxia for [id number]-av-[id number] testing. No dysdiadochokinesia. Tone and bulk of muscles normal. Gait deferred because of dizziness. On general examination, there is no carotid bruit or murmur, S1-S2 audible. Abdomen is soft nontender. Chest is clear. Peripheral pulses are present. No edema. Results - Laboratory Findings CBC and BMP: 09/16/20 09:55 09/18/20 08:52 Abnormal Lab Findings: Abnormal Labs 09/16/20 09/17/20 09/18/20 09:55 05:21 08:52 Chloride 108 H BUN 25 H 23 H Creatinine 1.05 H Est GFR (CKD-EPI)AfAm 58.1 L Est GFR (CKD-EPI)NonAf 50.1 L BUN/Creatinine Ratio 24.55 H Glucose 127 H 116 H Total Protein 6.2 L Assessment and Plan Assessment: * Acute onset of right hearing loss, vertigo, nausea and vomiting. Most likely due to peripheral vestibular dysfunction. Rule out right VIII cranial nerve palsy (?diabetic/vasculitic), versus Mnire's disease versus symptoms related to accelerated hypertension. Patient does have typical symptoms of Mnire's including recurrent vertigo, tinnitus, hearing loss and nystagmus. * Hypertension, uncontrolled * Diabetes * Chronic tinnitus. Plan: * MRI of the IAC with and without contrast for further evaluation of hearing loss and vertigo. CVA less likely. Patient is on aspirin which will be continued. * ESR, B12, folate. * Await ENT consultation. * Patient may benefit from high dose corticosteroids if okay with the ENT specialist. * Continue aspirin 81 mg daily.
--- NOTE | 2020-09-18 15:45 | MR ---
EXAMINATION TYPE: MR iac wo/w con DATE OF EXAM: 09/18/2020 COMPARISON: CT brain 09/16/2020 HISTORY: Vertigo, progressive hearing loss CONTRAST: Performed utilizing 7.5 mL intravenous Gadavist gadolinium contrast. TECHNIQUE: Multiplanar, multiecho imaging on a 3.0 Janey magnet is performed through the brain. Atte ntion is paid to the internal auditory canals with thin section imaging. Postcontrast imaging is per formed through the internal auditory canals. FINDINGS:Craniovertebral junction is normal. The pituitary is normal. Optic chiasm appears normal. Diffusion-weighted imaging is performed. No suspicious hyperintensity is present to suggest an acute intracranial infarct or acute ischemic area. Signal within the brain has scattered areas of hyperintensity which are non-specific but could be rel ated to microvascular ischemic changes.. Thin section imaging is performed through the internal auditory canals and cerebellar pontine angles. No cerebellar pontine angle masses are evident. The internal auditory canals appear normal without expansion or erosion. Postcontrast imaging was performed. No suspicious enhancement is evident within the internal audito ry canals or the included portions of the brain. IMPRESSIONS: 1. Normal internal auditory canals. 2. No suspicious intracranial changes to account for vertebral or progressive hearing loss
--- NOTE | 2020-09-18 15:46 | P.PN ---
Subjective Progress Note Date: 09/18/20 Patient is a 70-year-old female with a known history of hypertension, hyperlipidemia, GERD, diabetes type 2 bie-xvromlp-gsoekcjdn-diet controlled, obstructive sleep apnea not on CPAP, hypothyroidism, history of bilateral tinnitus, history of right foot toe gout, previous history of lumbar laminectomy discectomy L4-L5 and other multiple medical problems presents to ER with complaints of dizziness. Patient states that yesterday she went to her PCPs office due to elevated blood pressure at home, 180/76. Patient went to see her primary care physician when she had EKG and orthostatic hypotension was checked. Patient was sent home and was advised to take extra dose of losartan if SBP greater than 170. Last night around 7:45 PM patient states that her blood pressure was in 180s and took extra dose of losartan. Patient woke up at 7 AM and took her morning medications. She got out of the bed at around 8:30 PM and while she was dressing up she felt very dizzy and check her blood pressure again . Her blood pressure was 202/80 mmHg. She felt fuzzy and blurring of vision and felt like her right ear is plugged. Patient came to the hospital ER with her for further evaluation. Patient is also complaining of headache mainly in the back of the head. On admission blood pressure was 220/107, pulse 53, respirations 16 and pulse ox 98% on room air. CT head showed no acute intracranial process. Chest x-ray showed no acute cardio pulmonary process EKG showed sinus rhythm with occasional PVCs. Patient follows with Dr. Ludwig in the cardiology clinic. Laboratory data showed WBC 5.8 hemoglobin 13.6 and platelets 317 neck line sodium 139 potassium 3.8 chloride 108 BUN 25 and creatinine 1.05 Urinalysis is negative for infection. Patient was given a dose of IV hydralazine in the ER. Her blood pressure came down to 11 5/60. 09/17/2020 Patient is seen in follow-up this morning and blood pressure more controlled and was resumed on home medications. Patient states she was feeling much better and wanting to take a shower and after drying off and bending over felt some fullness and right ear popping and then sat up and became very dizzy and lightheaded and needed assistance back from the bathroom. Patient states she did have a history of vertigo many years ago and does not take anything for it. Meclizine is ordered and instructed the nurse to give. Patient and spouse at [facility] bedside persistent about having her partner integration planner Dr. Ludwig evaluate the patient as she feels these symptoms are stemming from something cardiac in nature and her blood pressure medications. Patient states she recently was on vacation visiting her daughter and mistakingly missed a few doses of her Coreg. Sodium is 143 with a potassium of 3.9 and current creatinine is 1.1. TSH is 4.870. 09/18/2020 Patient is seen and evaluated this morning continue to have some increase in nausea with dizziness and lightheadedness and overall feeling worse with generalized weakness. Neurology consulted and plans are for MRI and will await report. Patient is continued on meclizine and had some improvement. Patient is extremely anxious and requesting Valium for MRI. Will order one-time Valium 5 mg by mouth. Blood pressure elevated this morning prior to giving medications and awaiting for updated vitals. ESR is 8, sodium is 139 with a potassium of 4.2, BUN improving at 23 and current creatinine is 1.0. ENT also consulted and pending at this time. Review of systems: Constitutional: No reports of fatigue, fever, or chills Cardiovascular: No reports of chest pain or palpitations Respiratory: No reports of shortness of breath or cough GI: Reports of severe nausea with dry heaving and an episode of vomiting, no reports of diarrhea : No reports of dysuria or retention Neurovascular: Reports generalized weakness, no reports of numbness, reports to some dizziness and right ear fullness with popping All medications have been reviewed Objective - Vital Signs Vital signs: Vital Signs Temp 97.9 F 09/18/20 07:00 Pulse 59 L 09/18/20 07:00 Resp 16 09/18/20 07:00 BP 174/73 09/18/20 07:00 Pulse Ox 98 09/18/20 07:00 Intake & Output 09/17/20 09/18/20 09/18/20 18:59 06:59 18:59 Intake Total 118 Output Total 0 0 Balance 118 0 Intake: Oral 118 Output: Stool 0 0 Other: Voiding Method Toilet Toilet # Voids 2 1 - Exam Patient is lying in the bed comfortably, no acute distress, lethargic but easily arousable, alert and oriented x 3, well-developed, well-nourished. HEENT: Normocephalic. Neck is supple. Pupils reactive. Nostrils clear. Oral cavity is moist. Neck reveals no JVD, carotid bruits, or thyromegaly. CHEST EXAMINATION: Trachea is central. Symmetrical expansion. Lung souza clear to auscultation and percussion. CARDIAC: Normal S1, S2 with no gallops. No murmurs ABDOMEN: Soft. Bowel sounds normal. No organomegaly. No abdominal bruits. Extremities: reveal no edema. No clubbing or cyanosis Neurologically awake, alert, oriented x3 with well-coordinated movements. No focal deficits noted Skin: No rash or skin lesions. Psychiatric: Cooperative. Non-suicidal. Musculoskeletal: No joint swelling or deformity. Normal range of motion. - Labs CBC & Chem 7: 09/16/20 09:55 09/18/20 08:52 Labs: Abnormal Lab Results - Last 24 Hours (Table) 09/17/20 09/18/20 Range/Units 05:21 08:52 BUN 23 H (7-17) mg/dL Est GFR (CKD-EPI)AfAm 58.1 L (60.0-200.0) Est GFR (CKD-EPI)NonAf 50.1 L (60.0-200.0) BUN/Creatinine Ratio 24.55 H (12.00-20.00) Ratio Glucose 116 H (74-99) mg/dL Assessment and Plan Assessment: Dizziness and near syncopal episode likely due to hypertensive urgency Uncontrolled hypertension. Dehydration with slightly elevated BUN level. Diabetes type 2 diet-controlled Anxiety Hyperlipidemia Obstructive sleep apnea not on CPAP Hypothyroidism Chronic low back pain with right-sided sciatica History of lumbar laminectomy, discectomy L4-L5 History of syncope/seizures in the past History of gout History of vertigo GERD DVT prophylaxis Full code Plan: Patient will be continued on telemetry monitoring. Home blood pressures including losartan and Coreg resumed. Blood pressure elevated this morning prior to giving medications and will monitor closely. Patient having increasing dizziness and lightheadedness associated with nausea and dry heaving with an episode of vomiting. Given patient's symptoms and severity will consult neurology which is currently pending. An MRI has been ordered. Neurology working up for possible Mnire's. Will await report and appreciate recommendations. ENT is consulted and pending. Patient does follow with Dr. Ludwig cardiology outpatient. Monitor blood pressure closely. CT head is nega tive for any acute process. Prognosis is guarded
[2020-09-18 21:46] LABS: Glucose,Whole Blood 158 mg/dL (75-99)
[2020-09-19] MEDS: HEPARIN SODIUM,PORCINE/PF 5,000 UNIT/0.5 ML SYRINGE SQ SCH ×2 (00:19→07:19)
[2020-09-19 02:13] VITALS: PULSE 66
[2020-09-19] MEDS: LEVOTHYROXINE 50 MCG TAB PO SCH (06:07)
[2020-09-19 07:16] LABS: Glucose,Whole Blood 96 mg/dL (75-99)
[2020-09-19] MEDS: LOSARTAN 50 MG TAB PO SCH (07:18)
[2020-09-19] MEDS: MAGNESIUM OXIDE 400 MG TAB PO SCH (07:18)
[2020-09-19] MEDS: carvediloL 3.125 MG TAB PO SCH (07:19)
[2020-09-19] MEDS: allopurinoL 300 MG TAB PO SCH (07:19)
[2020-09-19 07:55] VITALS: BP 115/75; TEMP 97.9
[2020-09-19 11:21] LABS: Folate, Serum 17.9 ng/mL
[2020-09-19 12:24] LABS: Glucose,Whole Blood 96 mg/dL (75-99)
--- NOTE | 2020-09-21 01:50 | P.DS ---
Providers Date of admission: 09/16/20 12:49 Expected date of discharge: 09/19/20 Attending physician: Aubrey Ervin MD Consults: 09/17/20 14:57 Consult Physician Urgent Consulting Provider: Issac York Consult Reason/Comments: right ear pain, vertigo, dizziness Do you want consulting provider notified?: Yes 09/18/20 09:41 Consult Physician Urgent Consulting Provider: Lesli Elder Consult Reason/Comments: dizziness, vertigo Do you want consulting provider notified?: Yes Primary care physician: Hanna Ortez Hospital Course: Final Diagnosis Dizziness and near syncopal episode likely due to hypertensive urgency Uncontrolled hypertension. Dehydration with slightly elevated BUN level. Diabetes type 2 diet-controlled Anxiety Hyperlipidemia Obstructive sleep apnea not on CPAP Hypothyroidism Chronic low back pain with right-sided sciatica History of lumbar laminectomy, discectomy L4-L5 History of syncope/seizures in the past History of gout History of vertigo GERD DVT prophylaxis Full code Discharge disposition Patient is being discharged in a stable condition with guarded prognosis to home. Patient will follow-up with Dr. Hanna Ortez in the outpatient setting upon discharge. Patient is to also follow-up with cardiology Dr. Ludwig, ENT DR. York, and neurology Dr. Villareal in the outpatient setting. Patient will continue on valium and decadron taper per ENT. Total time taken is greater than 35 minutes. Hospital course Patient is a 70-year-old female with a known history of hypertension, hyperlipidemia, GERD, diabetes type 2 vrx-bqxnadn-nqgskpepw-diet controlled, obstructive sleep apnea not on CPAP, hypothyroidism, history of bilateral tinnitus, history of right foot toe gout, previous history of lumbar laminectomy discectomy L4-L5 and other multiple medical problems presents to ER with complaints of dizziness. Patient states that yesterday she went to her PCPs office due to elevated blood pressure at home, 180/76. Patient went to see her primary care physician when she had EKG and orthostatic hypotension was checked. Patient was sent home and was advised to take extra dose of losartan if SBP greater than 170. Last night around 7:45 PM patient states that her blood pressure was in 180s and took extra dose of losartan. Patient woke up at 7 AM and took her morning medications. She got out of the bed at around 8:30 PM and while she was dressing up she felt very dizzy and check her blood pressure again. Her blood pressure was 202/80 mmHg. She felt fuzzy and blurring of vision and felt like her right ear is plugged. Patient came to the hospital ER with her for further evaluation. Patient is also complaining of headache mainly in the back of the head. On admission blood pressure was 220/107, pulse 53, respirations 16 and pulse ox 98% on room air. CT head showed no acute intracranial process. Chest x-ray showed no acute cardio pulmonary process EKG showed sinus rhythm with occasional PVCs. Patient follows with Dr. Ludwig in the cardiology clinic. Laboratory data showed WBC 5.8 hemoglobin 13.6 and platelets 317 neck line sodium 139 potassium 3.8 chloride 108 BUN 25 and creatinine 1.05 Urinalysis is negative for infection. Patient was given a dose of IV hydralazine in the ER. Her blood pressure came down to 11 5/60. 09/17/2020 Patient is seen in follow-up this morning and blood pressure more controlled and was resumed on home medications. Patient states she was feeling much better and wanting to take a shower and after drying off and bending over felt some fullness and right ear popping and then sat up and became very dizzy and lightheaded and needed assistance back from the bathroom. Patient states she did have a history of vertigo many years ago and does not take anything for it. Meclizine is ordered and instructed the nurse to give. Patient and spouse at the bedside persistent about having her structural engineer Dr. Ludwig evaluate the patient as she feels these symptoms are stemming from something cardiac in nature and her blood pressure medications. Patient states she recently was on vacation visiting her daughter and mistakingly missed a few doses of her Coreg. Sodium is 143 with a potassium of 3.9 and current creatinine is 1.1. TSH is 4.870. 09/18/2020 Patient is seen and evaluated this morning continue to have some increase in nausea with dizziness and lightheadedness and overall feeling worse with generalized weakness. Neurology consulted and plans are for MRI and will await report. Patient is continued on meclizine and had some improvement. Patient is extremely anxious and requesting Valium for MRI. Will order one-time Valium 5 mg by mouth. Blood pressure elevated this morning prior to giving medications and awaiting for updated vitals. ESR is 8, sodium is 139 with a potassium of 4.2, BUN improving at 23 and current creatinine is 1.0. ENT also consulted and pending at this time. 09/19/2020 Patient seen and evaluated this morning and nausea improved. Dizziness is mild and ENT evaluated the patient and will start on low dose Valium along with decadron taper on discharge. Patient instructed to monitor blood pressure and follow up with DR. Ludwig outpatient. Patient will follow up with ENT DR. York in 2 weeks. MRI face/orbits/IAC negative. Currently no reports of chest pain, shortness of breath, or palpitations. Patient is afebrile. No reports of nausea or vomiting and patient is tolerating diet. Patient will be discharged home today. On exam vital signs are stable. Cardio S1, S2 are muffled. Respiratory system shows diminished breath sounds at the bases with no wheezing or rhonchi noted. Abdomen is soft and nontender. Nervous system shows no focal deficits. Please refer to medication reconciliation sheet for a list of medications. Patient Condition at Discharge: Fair Plan - Discharge Summary Discharge Rx Participant: No New Discharge Prescriptions: Continue Levothyroxine Sodium [Synthroid] 50 mcg PO DAILY Allopurinol 300 mg PO DAILY Losartan Potassium 50 mg PO DAILY Atorvastatin Calcium [Lipitor] 10 mg PO HS Melatonin 5 mg PO HS PRN PRN Reason: Insomnia Cetirizine HCl [Zyrtec] 10 mg PO DAILY PRN PRN Reason: Allergy Symptoms Aspirin EC [Ecotrin Low Dose] 81 mg PO DAILY Acetaminophen Tab [Tylenol] 500 - 1,000 mg PO Q6HR PRN PRN Reason: Pain carvediloL [Coreg] 3.125 mg PO BID #60 tablet Magnesium Oxide [White] 500 mg PO BID ALPRAZolam [Xanax] 0.25 mg PO DAILY PRN PRN Reason: Anxiety Thera-Tears 1 drop BOTH EYES QID PRN PRN Reason: Dry Eye(S) Discharge Medication List Allopurinol 300 mg PO DAILY 09/19/13 [History] Levothyroxine Sodium [Synthroid] 50 mcg PO DAILY 09/19/13 [History] Losartan Potassium 50 mg PO DAILY 02/15/17 [History] Atorvastatin Calcium [Lipitor] 10 mg PO HS 06/02/18 [History] Acetaminophen Tab [Tylenol] 500 - 1,000 mg PO Q6HR PRN 01/03/20 [History] Aspirin EC [Ecotrin Low Dose] 81 mg PO DAILY 01/03/20 [History] Cetirizine HCl [Zyrtec] 10 mg PO DAILY PRN 01/03/20 [History] Melatonin 5 mg PO HS PRN 01/03/20 [History] carvediloL [Coreg] 3.125 mg PO BID #60 tablet 01/04/20 [Rx] ALPRAZolam [Xanax] 0.25 mg PO DAILY PRN 09/16/20 [History] Magnesium Oxide [White] 500 mg PO BID 09/16/20 [History] Thera-Tears 1 drop BOTH EYES QID PRN 09/16/20 [History] Follow up Appointment(s)/Referral(s): Fiona Ludwig MD [STAFF PHYSICIAN] - 1 Week (Office will call with appointme nt and time.) Hanna Ortez MD [Primary Care Provider] - 1-2 days Shelby Villareal MD [Medical Doctor] - 1 Week Issac York MD [STAFF PHYSICIAN] - 2 Weeks Patient Instructions/Handouts: Earache (GEN), Hypertension (DC), Dizziness (GEN) Activity/Diet/Wound Care/Special Instructions: Activity Limited until follow-up Follow-up with primary care provider upon discharge Follow-up with neurology outpatient Follow-up with cardiology Dr. Ludwig in one week Follow-up with ENT Dr. York in 2 weeks Take medications as prescribed Continue heart healthy diet Discharge Disposition: HOME SELF-CARE
--- NOTE | 2020-09-23 08:40 | CONS ---
CONSULTATION REASON FOR CONSULTATION: Dizziness and right ear fullness. HISTORY OF PRESENT ILLNESS: The patient is a pleasant 70-year-old female who is well known to my office. In the past we have seen and evaluated this patient for episodes of dizziness and atypical facial pain. The patient states that while on vacation several days prior to coming to the [facility] Emergency Room, she thinks that she may have forgotten to take some of her blood pressure medication. During her vacation, she experienced episodes of headache (the patient has history of migraine headaches), fullness in her right ear, some slight pain in the right ear, dizziness, tinnitus, and a perception of hearing loss in the right ear. The patient was eventually seen in [facility] ER and after evaluation by the emergency room physician it was decided to admit the patient. A CT scan was performed in the emergency room and it was completely normal. At the time that I saw the patient in the patient's hospital room, the patient was not in any acute distress. She was still complaining of some fullness in the right ear/possible decreased hearing, ringing, but stated that most of the dizziness had resolved. At the onset of her dizziness she did state she did have some nausea but no actual vomiting. At the current time they are attempting to regulate her blood pressure with various medications. ALLERGIES: ELAVIL, CODEINE, NORCO, INDOCIN, PROCARDIA, PENICILLIN, NORVASC, VASOTEC, DARVON. CURRENT HOME MEDICATIONS: Include Synthroid, Losartan, Lipitor, one baby aspirin daily, Zyrtec, Coreg, Xanax, and allopurinol. REVIEW OF SYSTEMS: Reveals that the cardiovascular system is positive for hypertension. Respiratory is negative. Gastrointestinal is negative. Metabolic/endocrine system is positive for hypercholesterolemia and hypothyroidism. The remainder of review of systems is essentially unremarkable. PHYSICAL EXAMINATION: This patient is a 70-year-old female who was alert, cooperative and well-oriented to time and place. She is in no acute distress at this time. The patient is currently not experiencing any dizziness. HEENT examination: Patient is normocephalic. Tympanic membranes are normal. Middle ear spaces are free of any fluid or infection. Modified Hallpike maneuver and head shake are negative any gross nystagmus. Pupils equal, round, react to light accommodation. Extraocular movements within normal limits. Intranasal examination reveals moderate septal deviation with compensatory hypertrophy of the inferior turbinates. Mild amount of clear mucus on the mucous membranes and coming from both maxillary sinus ostia. Palpation of the TMJs and of the postauricular area is negative for any pain or discomfort. Cranial nerves 2 through 12 and palpation of the neck are all within normal limits. The remainder of the head and neck exam is within normal limits. CHEST/CARDIOVASCULAR: Both lung souza are clear to percussion and auscultation. The patient is in regular sinus rhythm. S1 and S2 are present without any murmurs, S3s or S4s. Peripheral pulses are bilaterally symmetrical. ABDOMEN: There is no evidence of any masses, megaly or tenderness. The abdomen is soft. The remainder of physical exam is essentially unremarkable. IMPRESSION: 1. Right ear fullness, hearing loss? 2. Dizziness/giddiness. 3. Tinnitus. PLAN: I have seen this patient in my office on previous occasions for evaluation of similar symptoms. In the past we have been able to treat her dizziness with low dose of Valium, specifically 2 mg p.o. t.i.d. p.r.n. She has history of allergic rhinitis and chronic rhinitis and therefore she takes an antihistamine, Zyrtec. At this point I feel that I could best evaluate the patient in my office. Specifically by doing a VNG to evaluate her vestibular system status. In addition to this, we will get her scheduled for audiological examination. In the meantime, I am going to write 2 prescriptions, 1 for Valium tablets 2 mg, #30, 1 p.o. t.i.d. p.r.n. with 1 refill and a Decadron Dosepak use as directed. The Decadron will also have 1 refill. The patient has been advised to call my office when she is discharged and to schedule an appointment after I return from my vacation. I want to take this opportunity to thank you for allowing me to assist in the care of your patient. If I could be of any further assistance, please feel free to call my office. TEJAS / AMANDA: [phone] /
== END 2020-09-19 14:01 | disposition home or self-care (01) ==
LOC: EC 09:16 → 6NMEDSUR 12:49
PROVIDERS: ADMIT Internal Medicine; ATTEND Internal Medicine
DX: R55 Syncope and collapse (principal); R42 Dizziness and giddiness; I16.0 Hypertensive urgency; I10 Essential (primary) hypertension; E86.0 Dehydration; E11.9 Type 2 diabetes mellitus without complications; F41.9 Anxiety disorder, unspecified; E78.5 Hyperlipidemia, unspecified; G47.33 Obstructive sleep apnea (adult) (pediatric); E03.9 Hypothyroidism, unspecified; H93.13 Tinnitus, bilateral; H91.91 Unspecified hearing loss, right ear; G89.29 Other chronic pain; M54.41 Lumbago with sciatica, right side; M41.9 Scoliosis, unspecified; M10.9 Gout, unspecified; K21.9 Gastro-esophageal reflux disease without esophagitis; I49.3 Ventricular premature depolarization; H69.80 Other specified disorders of Eustachian tube, unspecified ear; G50.1 Atypical facial pain; N28.9 Disorder of kidney and ureter, unspecified; M19.90 Unspecified osteoarthritis, unspecified site; Z79.84 Long term (current) use of oral hypoglycemic drugs; Z79.82 Long term (current) use of aspirin; Z79.890 Hormone replacement therapy; Z79.899 Other long term (current) drug therapy; Z88.4 Allergy status to anesthetic agent; Z88.5 Allergy status to narcotic agent; Z88.8 Allergy status to other drugs, medicaments and biological substances; Z88.6 Allergy status to analgesic agent; Z98.42 Cataract extraction status, left eye; Z96.1 Presence of intraocular lens; Z98.41 Cataract extraction status, right eye; Z87.01 Personal history of pneumonia (recurrent); Z86.19 Personal history of other infectious and parasitic diseases; Z86.69 Personal history of other diseases of the nervous system and sense organs; Z87.39 Personal history of other diseases of the musculoskeletal system and connective tissue; Z90.49 Acquired absence of other specified parts of digestive tract; Z83.3 Family history of diabetes mellitus; Z82.49 Family history of ischemic heart disease and other diseases of the circulatory system
CPT/HCPCS: 96376 ×2; 96361; 96372 ×4; 96374; 96375; 99285; 36415; 93005; 80053; 80048 ×2; 85652; 84443; 82607; 82746; 83605; 84484; 85025; 81003; 86780; 71046; 70450; 70553; G0378 ×4; J2060 ×2; J0360; J2765; J2405 ×2; A9585; J1644 ×4

== ENCOUNTER → 2020-09-25 | Outpatient (CLI) | payer MEDICARE ==
[2020-09-25 13:11] LABS: African American GFR (CKD) 72 (>60 ml/min/1.73 sqM); Anion Gap 9 mmol/L; Blood Urea Nitrogen 26 mg/dL (7-17); Calcium 10.5 mg/dL (8.4-10.2); Carbon Dioxide 25 mmol/L (22-30); Chloride 104 mmol/L (98-107); Glucose 125 mg/dL (74-99); Non-African American GFR(CKD) 62 (>60 ml/min/1.73 sqM); Potassium 4.9 mmol/L (3.5-5.1); Sodium 138 mmol/L (137-145)
[2020-09-25 13:27] LABS: Magnesium 2.1 mg/dL (1.6-2.3)
== END | disposition home or self-care (01) ==
LOC: LABWHC1 11:18
PROVIDERS: ATTEND Internal Medicine Interventional Cardiology
DX: I10 Essential (primary) hypertension (principal)
CPT/HCPCS: 36415; 80048; 83735

== ENCOUNTER → 2021-01-09 | Outpatient (CLI) | payer MEDICARE ==
--- NOTE | 2021-01-12 11:19 | MM ---
Reason for exam: screening (asymptomatic). Last mammogram was performed 1 year and 4 months ago. History: Patient is postmenopausal. Benign excisional biopsy of the right breast, 1995. Took hormonal contraceptives for 4 months. Took estrogen for 3 months. Physical Findings: A clinical breast exam by your physician is recommended on an annual basis and results should be correlated with mammographic findings. MG 3D Screening Mammo W/Cad Bilateral CC and MLO view(s) were taken. Prior study comparison: September 06, 2019, bilateral MG 3d screening mammo w/cad. August 21, 2018, bilateral MG 3d screening mammo w/cad. The breast tissue is heterogeneously dense. This may lower the sensitivity of mammography. Global asymmetry subareolar left breast is unchanged. No significant changes when compared with prior studies. ASSESSMENT: Benign, BI-RAD 2 RECOMMENDATION: Routine screening mammogram of both breasts in 1 year. Patient should continue monthly self breast exams. A negative report should not preclude additional follow up of suspicious palpable abnormalities.
== END | disposition home or self-care (01) ==
LOC: RADMAMWWP 09:15
PROVIDERS: ATTEND Family Medicine
DX: Z12.31 Encounter for screening mammogram for malignant neoplasm of breast (principal); Z78.0 Asymptomatic menopausal state
CPT/HCPCS: 77063; 77067

== ENCOUNTER → 2021-03-03 | Outpatient (CLI) | payer MEDICARE ==
--- NOTE | 2021-03-03 16:46 | BD ---
EXAMINATION TYPE: Axial Bone Density DATE OF EXAM: 03/03/2021 COMPARISON: 2018 CLINICAL HISTORY: post menopausal w/o hrt Height: 5'5 Weight: 179 FRAX RISK QUESTIONS: History of Fracture in Adulthood: y Secondary Osteoporosis: RISK FACTORS HISTORY OF: Surgery to Spine/Hip(right/left)/Wrist (right/left): l spine,2014. rodo hips 1993,left wrist 2010 When: Postmenopausal woman: y If Premenopausal, do you have irregular periods: y MEDICATIONS: Thyroid Medications: Which medication: Levothyroxine How Lon years Additional Medications: blood pressure, cholesterol, gout Additional History: EXAM MEASUREMENTS: Bone mineral densitometry was performed using the [employer] System. Bone mineral density about the R Wrist (g/cm2): 0.742 T Score values are as follows: -----Dist. R+U: 0.1 -----Prox. R+U: 0.8 -----Radius total: 1.1 Bone mineral density has: Increased 6.0% since study of: 08/21/2018 IMPRESSION: Normal (Values between +1 and -1 indicate normal bone mass). Note that measurements could only be ta kelli at the right forearm. Consider repeating this study in 5 years or sooner if there is some new cli nical indication. NOTE: T-SCORE=SD OF THE YOUNG ADULT MEAN.
== END | disposition home or self-care (01) ==
LOC: RADBDWWP 07:46
PROVIDERS: ATTEND Family Medicine
DX: Z78.0 Asymptomatic menopausal state (principal)
CPT/HCPCS: 77080

== ENCOUNTER → 2021-04-01 | Outpatient (CLI) | payer MEDICARE ==
[2021-04-02 01:13] LABS: INR 1.06 (0.90-1.11); Partial Thromboplastin Time 37.4 sec (23.5-31.0); Prothrombin Time 11.9 sec (9.9-11.9)
== END | disposition home or self-care (01) ==
LOC: LABWHC1 14:22
PROVIDERS: ATTEND Specialist
DX: E11.29 Type 2 diabetes mellitus with other diabetic kidney complication (principal); M54.50 Low back pain, unspecified; E03.9 Hypothyroidism, unspecified; N18.31 Chronic kidney disease, stage 3a; I10 Essential (primary) hypertension
CPT/HCPCS: 85610; 85730

== ENCOUNTER 2021-09-02 11:28 | Emergency (ER) | payer MEDICARE ==
[2021-09-02 11:35] VITALS: BP 199/80; PULSE 65; RESP 18
--- NOTE | 2021-09-02 12:23 | XR ---
EXAMINATION TYPE: XR ankle complete LT DATE OF EXAM: 09/02/2021 COMPARISON: NONE HISTORY: pain FINDINGS: Three views of the ankle demonstrate the ankle mortise to be intact and symmetric. The joint spaces are preserved. The osseous structures are intact. Soft tissue edema laterally. IMPRESSION: 1. No definite acute fracture or dislocation, if symptoms persist follow-up study in 7 to 10 days wou ld be suggested. Extensive soft tissue edema laterally.
--- NOTE | 2021-09-02 12:26 | XR ---
EXAMINATION TYPE: XR wrist complete BILATERAL DATE OF EXAM: 09/02/2021 CLINICAL HISTORY: pain TECHNIQUE: Frontal, lateral and oblique images of the right wrist are obtained. COMPARISON: None. FINDINGS: On the lateral projection is cortical lucency through the triquetrum felt to reflect nondisplaced tri quetral fracture. Correlate clinically point tenderness. No additional fractures seen. Mild soft tiss ue swelling suspected. IMPRESSION: Suspect triquetral fracture. ICD 10 NO FRACTURE, INITIAL EVALUATION EXAMINATION TYPE: XR wrist complete BILATERAL DATE OF EXAM: 09/02/2021 CLINICAL HISTORY: pain TECHNIQUE: Frontal, lateral and oblique images of the left wrist are obtained. COMPARISON: None. FINDINGS: There is no acute fracture/dislocation evident. Distal radial plate and screw fixation. Th e joint spaces appear within normal limits. The overlying soft tissue appears unremarkable. IMPRESSION: There is no acute fracture or dislocation seen. ICD 10 NO FRACTURE, INITIAL EVALUATION
--- NOTE | 2021-09-02 13:09 | XR ---
EXAMINATION TYPE: XR elbow complete RT DATE OF EXAM: 09/02/2021 CLINICAL HISTORY: pain TECHNIQUE: Frontal, lateral and oblique images of the right elbow are obtained. COMPARISON: None. FINDINGS: Radial head deformity suggestive of nondisplaced fracture. Pathologic anterior and posterio r fat pads. No additional fractures seen. IMPRESSION: Radial head deformity suggestive of nondisplaced fracture.
--- NOTE | 2021-09-02 13:22 | ED ---
Fall HPI - General Chief Complaint: Fall Stated Complaint: Fall Time Seen by Provider: 09/02/21 11:29 Source: patient, EMS, RN notes reviewed Mode of arrival: EMS Limitations: no limitations - History of Present Illness Initial Comments: This a 71-year-old female presents emergency Department chief complaint of fall. Patient states that she was at [facility] visiting her brother when she states that she caught her toe the ground causing a trip and fall. Patient complains of left ankle pain, right knee abrasion bilateral wrist pain. Patient states that she was prior via EMS denies any pain medication states that she has multiple ALLERGIES states that the pain is not severe. No head injury no loss conscious. Patient offers no complaints. - Related Data Home Medications Medication Instructions Recorded Confirmed Levothyroxine Sodium [Synthroid] 50 mcg PO DAILY 09/19/13 09/16/20 allopurinoL [Allopurinol] 300 mg PO DAILY 09/19/13 09/16/20 Losartan Potassium 50 mg PO DAILY 02/15/17 09/16/20 Atorvastatin Calcium [Lipitor] 10 mg PO HS 06/02/18 09/16/20 Acetaminophen Tab [Tylenol] 500 - 1,000 mg PO Q6HR PRN 01/03/20 09/16/20 Aspirin EC [Ecotrin Low Dose] 81 mg PO DAILY 01/03/20 09/16/20 Cetirizine HCl [Zyrtec] 10 mg PO DAILY PRN 01/03/20 09/16/20 Melatonin 5 mg PO HS PRN 01/03/20 09/16/20 ALPRAZolam [Xanax] 0.25 mg PO DAILY PRN 09/16/20 09/16/20 Magnesium Oxide [White] 500 mg PO BID 09/16/20 09/16/20 Thera-Tears 1 drop BOTH EYES QID PRN 09/16/20 09/16/20 Previous Rx's Medication Instructions Recorded carvediloL [Coreg] 3.125 mg PO BID #60 tablet 01/04/20 Allergies Allergy/AdvReac Type Severity Reaction Status Date / Time amitriptyline HCl Allergy Rapid Verified 09/16/20 11:51 [From Elavil] Heart Rate codeine Allergy Vomiting Verified 09/16/20 11:51 codeine phosphate Allergy Vomiting Verified 09/16/20 11:51 [From Tylenol-Codeine #3] hydrocodone Allergy Rash/Hives Verified 09/16/20 11:51 hydrocodone bitartrate Allergy Rash/Hives Verified 09/16/20 11:51 [From Lortab] indomethacin [From Indocin] Allergy Vomiting Verified 09/16/20 11:51 indomethacin sodium Allergy Vomiting Verified 09/16/20 11:51 [From Indocin] nifedipine [From Procardia] Allergy Did not Verified 09/16/20 11:51 maintain blood pressure Penicillins Allergy Rash/Hives Verified 09/16/20 11:51 amlodipine besylate AdvReac lower leg Verified 09/16/20 11:51 [From Norvasc] edema, did not maintain blood pressure enalapril maleate AdvReac Cough Verified 09/16/20 11:51 [From Vasotec] enalaprilat dihydrate AdvReac Cough Verified 09/16/20 11:51 [From Vasotec] propoxyphene HCl AdvReac Vomiting Verified 09/16/20 11:51 [From Darvon] anesthetics AdvReac Nausea & Uncoded 09/16/20 11:51 Vomiting Review of Systems ROS Statement: Those systems with pertinent positive or pertinent negative responses have been documented in the HPI. ROS Other: All systems not noted in ROS Statement are negative. Past Medical History Past Medical History: Chest Pain / Angina, Diabetes Mellitus, GERD/Reflux, Hyperlipidemia, Hypertension, Musculoskeletal Disorder, Osteoarthritis (OA), Pneumonia, Sleep Apnea/CPAP/BIPAP, Syncope, Thyroid Disorder Additional Past Medical History / Comment(s): NIDDM type II/diet controlled, decreased renal function, one past issue with potassium/magnesium, hypothyroid, gout R foot toe, recent low back pain with R side sciatica, scoliosis/DDD, MITALI without device used, current R foot pain/hammer toes with physical therapy, past shingelles, bilateral tinnitis, syncope/seizure once years ago. History of Any Multi-Drug Resistant Organisms: None Reported Past Surgical History: Adenoidectomy, Back Surgery, Bladder Surgery, Cholecystectomy, Heart Catheterization, Orthopedic Surgery, Tonsillectomy, Tubal Ligation Additional Past Surgical History / Comment(s): 09/02/15 lumbar laminectomy discectomy L4-L5, Bladder Suspension, GABBIE HIP RE-ALIGNMENTS. ORIF LT WRIST. RT CTR. RT ANKLE BENIGN TUMOR EXC. Lipoma EXC Rt wrist, EXC GANGLION CYSTS X3 RT WRIST. RT BREAST CYST EXC. Dental Implants x6. LT KNEE SCOPE. EPIDURAL INJ BACK X4, LAST 07/23/15, bilateral cataract removals/lens implants, R foot graham neuroma removal. Past Anesthesia/Blood Transfusion Reactions: Family History of Problems w/ Anesthesia, Motion Sickness, Postoperative Nausea & Vomiting (PONV) Additional Past Anesthesia/Blood Transfusion Reaction / Comment(s): SEVERE PONV. MOTHER, SISTERS HAVE PONV. Past Psychological History: No Psychological Hx Reported Smoking Status: Never smoker Past Alcohol Use History: None Reported Past Drug Use History: None Reported - Past Family History Mother Family Medical History: Diabetes Mellitus Father Family Medical History: Diabetes Mellitus Additional Family Medical History / Comment(s): HEART PROBLEMS General Exam General appearance: alert, in no apparent distress Head exam: Present: atraumatic, normocephalic, normal inspection Eye exam: Present: normal appearance, PERRL, EOMI. Absent: scleral icterus, conjunctival injection, periorbital swelling ENT exam: Present: normal exam, normal oropharynx, mucous membranes moist Neck exam: Present: normal inspection, full ROM. Absent: tenderness, meningismus, lymphadenopathy Respiratory exam: Present: normal lung sounds bilaterally. Absent: respiratory distress, wheezes, rales, rhonchi, stridor Cardiovascular Exam: Present: regular rate, normal rhythm, normal heart sounds. Absent: systolic murmur, diastolic murmur, rubs, gallop, clicks Extremities exam: Present: other (Superficial abrasion right knee, left ankle there is moderate swelling and tenderness palpation, neurovascular intact no proximal tib-fib tenderness, patient's bilateral wrist tenderness with minimal swelling neurovascular intact) Course Vital Signs 09/02/21 11:30 Pulse Rate 65 Respiratory 18 Rate Blood Pressure 199/80 O2 Sat by Pulse 98 Oximetry - Reevaluation(s) Reevaluation #1: 09/02/21 13:20 Patient updated on x-ray results states her pain is very mild denies any pain meds. Patient at this time complains of right elbow pain x-ray was ordered. Procedures - Orthopedic Splinting/Casting Injury #1 Side: right Upper Extremity Injury Location: long arm, elbow Upper Extremity Immobilizer: sling/shoulder immobilizer, posterior splint, synthetic pre-padded splint Medical Decision Making - Medical Decision Making X-ray including bilateral wrists, left ankle and right elbow shows evidence of right radial head fracture Disposition Clinical Impression: Fall, Left ankle sprain, Right radial head fracture, Strain of wrist, bilateral Disposition: HOME SELF-CARE Condition: Stable Instructions (If sedation given, give patient instructions): Arm Fracture in Adults (ED) Additional Instructions: Please return to the Emergency Department if symptoms worsen or any other concerns. Is patient prescribed a controlled substance at d/c from ED?: No Referrals: Hanna Ortez MD [Primary Care Provider] - 1-2 days Dean Galvan MD [STAFF PHYSICIAN] - 1-2 days Time of Disposition: 13:21
== END 2021-09-02 14:34 | disposition home or self-care (01) ==
LOC: EC 11:28
DX: S52.121A Displaced fracture of head of right radius, initial encounter for closed fracture (principal); S93.402A Sprain of unspecified ligament of left ankle, initial encounter; S66.912A Strain of unspecified muscle, fascia and tendon at wrist and hand level, left hand, initial encounter; S66.911A Strain of unspecified muscle, fascia and tendon at wrist and hand level, right hand, initial encounter; S80.211A Abrasion, right knee, initial encounter; E11.9 Type 2 diabetes mellitus without complications; I10 Essential (primary) hypertension; E78.5 Hyperlipidemia, unspecified; K21.9 Gastro-esophageal reflux disease without esophagitis; M19.90 Unspecified osteoarthritis, unspecified site; E03.9 Hypothyroidism, unspecified; M10.9 Gout, unspecified; Z79.82 Long term (current) use of aspirin; Z79.890 Hormone replacement therapy; Z79.899 Other long term (current) drug therapy; W01.0XXA Fall on same level from slipping, tripping and stumbling without subsequent striking against object, initial encounter
CPT/HCPCS: 29105; 99284

== ENCOUNTER → 2022-01-11 | Outpatient (CLI) | payer MEDICARE ==
--- NOTE | 2022-01-12 19:54 | MM ---
Reason for Exam: Screening (asymptomatic). Last screening mammogram was performed 12 month(s) ago. Patient History: Menarche at age 16. First Full-Term at age 22. Postmenopausal. Estrogen for 3 months. Hormonal Contraceptives for 4 months. 1995, Benign Excisional Biopsy on the right side. Risk Values: Gema 5 year model risk: 1.7%. NCI Lifetime model risk: 4.2%. Prior Study Comparison: 08/21/2018 Bilateral Screening Mammogram, [facility]. 09/06/2019 Bilateral Screening Mammogram, [facility]. 01/09/2021 Bilateral Screening Mammogram, [facility]. Tissue Density: The breast tissue is heterogeneously dense. This may lower the sensitivity of mammography. Findings: Analyzed By CAD. Subareolar nodularity on the left unchanged. Benign vascular calcifications on the left. No significant change from prior exams. Overall Assessment: Benign, BI-RAD 2 Management: Screening Mammogram of both breasts in 1 year. 1. Patient should continue monthly self breast exams. 2. A clinical breast exam by your physician is recommended on an annual basis. 3. This exam should not preclude additional follow-up of suspicious palpable abnormalities. Electronically signed and approved by: Rangel Gray M.D. Radiologist
== END | disposition home or self-care (01) ==
LOC: RADMAMWWP 13:05
PROVIDERS: ATTEND Family Medicine
DX: Z12.31 Encounter for screening mammogram for malignant neoplasm of breast (principal); Z78.0 Asymptomatic menopausal state
CPT/HCPCS: 77063; 77067

== ENCOUNTER → 2022-07-12 | Outpatient (CLI) | payer MEDICARE ==
--- NOTE | 2022-07-12 14:22 | CT ---
EXAMINATION TYPE: CT sinus wo con DATE OF EXAM: 07/12/2022 COMPARISON: None HISTORY: Chronic sinusitis. CT DLP: 605.[address] of the paranasal sinuses was performed in the axial and coronal planes. Bone and soft tissue settings are submitted. The paranasal sinuses demonstrate normal aeration and development. Mild to moderate mucosal thickening right maxillary sinus with mild mucosal thickening left maxillary sinus and opacification of scattered ethmoid air cells. The sphenoid sinus and frontal sinuses are w ell aerated. The osteal meatal units are patent bilaterally. The nasal septum is mildly deviated from right to left. Incidental small left-sided terry bullosa th e middle turbinate. No bony destructive changes are seen within the field of view. IMPRESSION: 1. Chronic sinusitis as noted involving the ethmoid air cells and the maxillary sinuses. Mild nasal s eptal deviation.
== END | disposition home or self-care (01) ==
LOC: RADCTMAIN 13:30
PROVIDERS: ATTEND Internal Medicine
DX: J32.0 Chronic maxillary sinusitis (principal); J34.2 Deviated nasal septum; J34.89 Other specified disorders of nose and nasal sinuses
CPT/HCPCS: 70486

== ENCOUNTER → 2022-10-19 | Outpatient (CLI) | payer MEDICARE ==
--- NOTE | 2022-10-20 08:48 | MR ---
EXAMINATION TYPE: MR cervical spine wo con DATE OF EXAM: 10/19/2022 9:18 PM COMPARISON: NONE HISTORY: Radiculopathy, foot drop Multiplanar MultiSpin echo imaging of the cervical spine was performed. Comparison: none C2-C3: No evidence for degenerative disc disease. No disc bulge/herniation or protrusion. No Canal stenosis. Foramina are patent bilaterally. C3-C4: No evidence for degenerative disc disease. No disc bulge/herniation or protrusion. No Canal stenosis. Foramina are patent bilaterally. C4-C5: No evidence for degenerative disc disease. No disc bulge/herniation or protrusion. No Canal stenosis. Foramina are patent bilaterally. C5-C6: Mild decreased signal and loss of height compatible with degenerative disc disease. Posterior disc bulge with mild effacement of the ventral thecal sac. Mild bilateral neural foraminal encroachme nt. No evidence for disc herniation or central stenosis. C6-C7: Mild decreased signal and loss of height compatible with degenerative disc disease. Posterior disc bulge with mild effacement of the ventral thecal sac. Mild bilateral neural foraminal encroachme nt. No evidence for disc herniation or central stenosis. C7-T1: No evidence for degenerative disc disease. No disc bulge/herniation or protrusion. No Canal stenosis. Foramina are patent bilaterally. Cervical segments are intact. There is normal alignment. Cervical spinal cord is of normal signal. Craniovertebral junction relationships are within normal limits. IMPRESSION: 1. Mild disc desiccation and disc bulging at C5-6 and C6-7. Foraminal encroachment as outlined above.
== END | disposition home or self-care (01) ==
LOC: RADMRIMAIN 20:45
PROVIDERS: ATTEND Specialist
DX: M50.122 Cervical disc disorder at C5-C6 level with radiculopathy (principal)
CPT/HCPCS: 72141

== ENCOUNTER → 2022-10-19 | Outpatient (CLI) | payer MEDICARE ==
--- NOTE | 2022-10-19 10:03 | XR ---
EXAMINATION TYPE: XR cervical spine comp DATE OF EXAM: 10/19/2022 COMPARISON: NONE HISTORY: Pain TECHNIQUE: Four views are submitted. FINDINGS: The odontoid is intact. There are no compression deformities. The prevertebral soft tissue structur es are within normal limits. Calcification bilateral soft tissue neck likely related to carotid darius ry calcification. There is a acute stenosis of the cervical spine with reversal of the normal lordosi s. Degenerative disc disease is seen C5-C6 with anterior spurring and posterior spondylosis. Uncovertebr al joint hypertrophy and mild degenerative disc disease at level C3-4, C4-5 and C6-C7. There is anterolisthesis of multiple segments on flexion including C2-3, C3-C3-4, C4-C5 which reverse s on neutral and extension images. A retrolisthesis at these levels are seen on the extension image. Calcifications in the upper lung souza may relate to calcified lymph nodes or granuloma. IMPRESSION: 1. Multilevel degenerative disc disease with moderate changes C5-C6. 2. Multilevel facet arthropathy. 3. There is a approximate 2 mm anterolisthesis at multiple levels on flexion views with a similar deg ree of retrolisthesis noted on extension views. Note is made there is reversal of the normal cervical lordosis on neutral view. Could be on the basis of ligamentous laxity. Correlate clinically.
== END | disposition home or self-care (01) ==
LOC: RADXRMAIN 09:29
PROVIDERS: ATTEND Specialist
DX: M50.322 Other cervical disc degeneration at C5-C6 level (principal); M47.22 Other spondylosis with radiculopathy, cervical region
CPT/HCPCS: 72050

== ENCOUNTER → 2023-02-08 | Outpatient (CLI) | payer MEDICARE ==
--- NOTE | 2023-02-09 08:44 | MM ---
Reason for Exam: Screening (asymptomatic). Last mammogram was performed 1 year(s) and 1 month(s) ago. Patient History: Menarche at age 16. First Full-Term at age 22. Postmenopausal. Patient has history of breast feeding. Estrogen for 3 months. Hormonal Contraceptives for 4 months. 1996, Benign Excisional Biopsy on the right side. Paternal aunt had breast cancer at or over age 50. Paternal aunt had breast cancer at or over age 50. Risk Values: Gema 5 year model risk: 1.7%. NCI Lifetime model risk: 3.9%. Prior Study Comparison: 08/11/2016 Bilateral Diagnostic Mammogram, [facility]. 08/17/2017 Bilateral Screening Mammogram, [facility]. 08/21/2018 Bilateral Screening Mammogram, [facility]. 09/06/2019 Bilateral Screening Mammogram, [facility]. 03/17/2020 Left Diagnostic Ultrasound, [facility]. 01/09/2021 Bilateral Screening Mammogram, [facility]. 01/11/2022 Bilateral MG 3D screening mammo w/cad, [facility]. Tissue Density: The breast tissue is heterogeneously dense. This may lower the sensitivity of mammography. Findings: Analyzed By CAD. There is no suspicious group of microcalcifications or new suspicious mass in either breast. Overall Assessment: Benign, BI-RAD 2 Management: Screening Mammogram of both breasts in 1 year. . Patient should continue monthly self-breast exams. A clinical breast exam by your physician is recommended on an annual basis. This exam should not preclude additional follow-up of suspicious palpable abnormalities. Note on Gema scores and lifetime risk: 1. A Gema score greater than 3% is considered moderate risk. If this is the case, consider specialist referral to assess eligibility for a risk reducing agent. 2. If overall lifetime risk for the development of breast cancer is 20% or higher, the patient may qualify for future screening with alternating mammogram and breast MRI. Electronically signed and approved by: Georges Drummond M.D. Radiologis
== END | disposition home or self-care (01) ==
LOC: RADMAMWWP 07:05
PROVIDERS: ATTEND Family Medicine
DX: Z12.31 Encounter for screening mammogram for malignant neoplasm of breast (principal); Z80.3 Family history of malignant neoplasm of breast; Z78.0 Asymptomatic menopausal state
CPT/HCPCS: 77063; 77067

== ENCOUNTER → 2023-12-28 | Outpatient (CLI) | payer MEDICARE ==
[2023-12-28 15:40] LABS: ALT 23 U/L (8-44); AST 23 U/L (13-35); Albumin 3.9 g/dL (3.8-4.9); Albumin/Globulin Ratio 2.29 Ratio (1.60-3.17); Alkaline Phosphatase 54 U/L (41-126); Blood Urea Nitrogen 32.3 mg/dL (9.0-27.0); Calcium 10.1 mg/dL (8.7-10.3); Carbon Dioxide 25.4 mmol/L (21.6-31.8); Chloride 107 mmol/L (96-109); Globulin 1.7 g/dL (1.6-3.3); Glucose 100 mg/dL (70-110); Potassium 4.4 mmol/L (3.5-5.5); Sodium 143 mmol/L (135-145); T4, Free (Free Thyroxine) 1.43 ng/dL (0.80-1.80); Total Bilirubin 0.4 mg/dL (0.3-1.2); Total Protein 5.6 g/dL (6.2-8.2)
== END | disposition home or self-care (01) ==
LOC: LABWHC1 10:19
PROVIDERS: ATTEND Internal Medicine
DX: R53.1 Weakness (principal); R53.83 Other fatigue; E27.40 Unspecified adrenocortical insufficiency
CPT/HCPCS: 36415; 80053; 82533; 84439; 84443

== ENCOUNTER → 2024-05-03 | Outpatient (CLI) | payer MEDICARE ==
--- NOTE | 2024-05-03 07:45 | USB ---
Reason for Exam: Clinical finding. Patient History: Menarche at age 16. First Full-Term at age 22. Postmenopausal. Patient has history of breast feeding. Estrogen for 3 months. Hormonal Contraceptives for 4 months. 1995, Benign Excisional Biopsy on the right side. Paternal aunt had breast cancer at or over age 50. Paternal aunt had breast cancer at or over age 50. Risk Values: Gema 5 year model risk: 1.7%. NCI Lifetime model risk: 3.5%. Technique: Method: Targeted. Prior Study Comparison: 01/11/2022 Bilateral MG 3D screening mammo w/cad, [facility]. 02/08/2023 Bilateral MG 3D screening mammo w/cad, [facility]. 03/29/2024 Bilateral MG 3D screening mammo w/cad, [facility]. Findings: The upper outer quadrant of the left breast, the axilla of the left breast and the retroareolar of the left breast were scanned. No solid or cystic masses are identified. Manage clinically. Overall Assessment: Negative, BI-RAD 1 Management: Screening Mammogram of both breasts in 9 months. A clinical breast exam by your physician is recommended on an annual basis and results should be correlated with mammographic findings. This exam should not preclude additional follow-up of suspicious palpable abnormalities. Results were given to the patient verbally at the time of exam. [facility], , 05/03/2024 7:41 AM. Electronically signed and approved by: Georges Drummond M.D. Radiologis
== END | disposition home or self-care (01) ==
LOC: RADUSWWP 06:47
PROVIDERS: ATTEND Family Medicine
DX: N64.4 Mastodynia (principal); N63.20 Unspecified lump in the left breast, unspecified quadrant; Z78.0 Asymptomatic menopausal state; Z80.3 Family history of malignant neoplasm of breast